=== PATIENT | female | born 1980 | race American Indian/Alaskan Native ===

== ENCOUNTER 2020-02-27 21:42 | Inpatient (IN) | payer OTHER ==
--- NOTE | 2020-02-27 21:57 | Emergency Department Report ---
History of Present Illness - General Stated Complaint: MH/SUICIDAL Time Seen by Provider: 02/27/20 21:52 Source: patient, EMS Mode of arrival: Stretcher Limitations: No Limitations - History of Present Illness Initial Comments: Patient is a 39-year-old female that presents emergency room with complaints of depression and suicide attempt. Patient states she took a handful of Unisom in order to go to sleep and not wake up. Patient states she does not want to be on earth anymore. Patient states she is depressed. Patient denies anxiety. Patient denies homicidal ideations. Patient states she does not want to talk anymore. Complaint: intentional overdose -: Sudden Intent: suicide attempt How Overdose Was Discovered: called 911 Context: Intentional Overdose: other Associated Symptoms: depression Treatments Prior to Arrival: none - Related Data Allergies Allergy/AdvReac Type Severity Reaction Status Date / Time Penicillins Allergy Anaphylaxis Verified 02/27/20 22:10 ED Review of Systems ROS: Stated complaint: MH/SUICIDAL Other details as noted in HPI Constitutional: denies: chills, fever Eyes: denies: eye pain, eye discharge, vision change ENT: denies: ear pain, throat pain Respiratory: denies: cough, shortness of breath, wheezing Cardiovascular: denies: chest pain, palpitations Endocrine: no symptoms reported Gastrointestinal: denies: abdominal pain, nausea, diarrhea Genitourinary: denies: urgency, dysuria, discharge Musculoskeletal: denies: back pain, joint swelling, arthralgia Skin: denies: rash, lesions Neurological: denies: headache, weakness, paresthesias Psychiatric: depression, suicidal thoughts. denies: anxiety, auditory hallucinations, visual hallucinations, homicidal thoughts Hematological/Lymphatic: denies: easy bleeding, easy bruising ED Past Medical Hx - Past Medical History Previous Medical History?: Yes Hx Psychiatric Treatment: Yes - Surgical History Past Surgical History?: No - Family History Family history: no significant - Social History Smoking Status: Never Smoker Substance Use Type: None ED Physical Exam - General Limitations: No Limitations General appearance: alert, in no apparent distress - Head Head exam: Present: atraumatic, normocephalic - Eye Eye exam: Present: normal appearance - ENT ENT exam: Present: mucous membranes moist - Neck Neck exam: Present: normal inspection - Respiratory Respiratory exam: Present: normal lung sounds bilaterally. Absent: respiratory distress - Cardiovascular Cardiovascular Exam: Present: regular rate, normal rhythm. Absent: systolic murmur, diastolic murmur, rubs, gallop - GI/Abdominal GI/Abdominal exam: Present: soft, normal bowel sounds - Extremities Exam Extremities exam: Present: normal inspection - Back Exam Back exam: Present: normal inspection - Neurological Exam Neurological exam: Present: alert, oriented X3 - Psychiatric Psychiatric exam: Present: depressed, flat affect, suicidal ideation - Skin Skin exam: Present: warm, dry, intact, normal color. Absent: rash ED Course Vital Signs 02/27/20 02/27/20 22:10 23:34 Pulse Rate 121 H 119 H Respiratory 30 H Rate Blood Pressure 235/105 Blood Pressure 214/121 [Left] O2 Sat by Pulse 98 Oximetry - Reevaluation(s) Reevaluation #1: Initial evaluation done. Patient placed on a 1013 for her suicide attempt. Patient not clear exactly on how many Unisom she took. Poison control will be contacted by the nurse. 02/27/20 21:59 Reevaluation #2: OCTAVIO CELESTIN Female : 1980 MedRec# [id number] 02/27/20 22:22 - Nurse Note by OLGA NETTLES Acct Num: [id number] : 1980 Patient Age: 39 Spoke with Anne at poison control. She stated pt should be observed for 6-8 hrs, Basic labs including salicilite and acetaminophen levels. library monitor for ventricular irregularities including Torsades. If QRS >100 call poison control back. If pt becomes agitated give benzos NOT haldol or geodon. informed of recommendations from poison control Initialized on 02/27/20 22:22 - END OF NOTE Reevaluation #3: Patient blood pressure better. Patient heart rate better with fluids. Patient will continue to give fluids. Patient's labs done. I discussed all results with patient. I discussed plan of care with patient. Patient agrees with plan of care and admission. Patient to be admitted to the hospitalist service. 02/27/20 23:31 - Consultations Consultation #1: Hospitalist consulted for admission. Hospitalist to admit patient. Bridge orders placed. 02/27/20 23:31 ED Medical Decision Making - Lab Data Result diagrams: 02/27/20 21:55 02/27/20 21:55 - EKG Data -: EKG Interpreted by Me EKG shows normal: sinus rhythm, axis, intervals, QRS complexes, ST-T waves Rate: tachycardia - Medical Decision Making Patient is a 39-year-old female that presents emergency room for overdose with Unisom. Patient took an unknown amount. Poison control consulted. Recommen dations received. Patient will be admitted to the hospitalist service for further evaluation treatment. Patient labs were done showing renal insufficiency. Patient was found to have malignant hypertension and tachycardia. Patient given hydralazine which helped her blood pressure. Patient given fluids. - Differential Diagnosis Overdose, suicidal ideation and attempt, depression, electrolyte imbalance Critical Care Time: Yes Critical care time in (mins) excluding proc time.: 35 Critical care attestation.: If time is entered above; I have spent that time in minutes in the direct care of this critically ill patient, excluding procedure time. Critical Care Time: 35 minutes ED Disposition Clinical Impression: Renal insufficiency, Tachycardia, Malignant hypertension Overdose Qualifiers: Encounter type: initial encounter Injury intent: intentional self-harm Qualified Code(s): T50.902A - Poisoning by unspecified drugs, medicaments and biological substances, intentional self-harm, initial encounter Depressed Qualifiers: Depression Type: unspecified Qualified Code(s): F32.9 - Major depressive disorder, single episode, unspecified Anemia Qualifiers: Anemia type: unspecified type Qualified Code(s): D64.9 - Anemia, unspecified Disposition: DC-09 OP ADMIT IP TO THIS HOSP Is pt being admited?: Yes Does the pt Need Aspirin: No Condition: Critical [facility] - 3-5 Days Time of Disposition: 23:30
[2020-02-27] MEDS ORDERED: SODIUM CHLORIDE 0.9% 1000 ML 1,000 ML IV ONE (22:00)
[2020-02-27] MEDS ORDERED: hydrALAZINE 20 MG/1 ML INJ IV ONE (22:01)
[2020-02-27 22:15] LABS: Basophils # (Auto) 0.1 K/mm3 (0.0-0.1); Basophils % (Auto) 1.4 % (0.0-1.8); Eosinophils # (Auto) 0.1 K/mm3 (0.0-0.4); Eosinophils % (Auto) 1.4 % (0.0-4.3); Lymphocytes # (Auto) 1.8 K/mm3 (1.2-5.4); Lymphocytes % (Auto) 21.8 % (13.4-35.0); Mean Corpuscular HGB Conc 30 % (30-34); Monocytes # (Auto) 0.5 K/mm3 (0.0-0.8); Monocytes % (Auto) 6.2 % (0.0-7.3); Platelet Count 465 K/mm3 (140-440); Red Blood Count 4.64 M/mm3 (3.65-5.03); Red Cell Distribution Width 18.5 % (13.2-15.2)
[2020-02-27 22:16] LABS: Hematocrit 30.1 % (30.3-42.9); Mean Corpuscular Volume 65 fl (79-97)
[2020-02-27 22:31] LABS: Calcium 8.9 mg/dL (8.4-10.2)
[2020-02-28] MEDS ORDERED: ONDANSETRON 4 MG/2 ML INJ IV PRN (01:03)
[2020-02-28] MEDS ORDERED: HYDROmorphone 1 MG/1 ML INJ IV PRN (01:03)
[2020-02-28] MEDS ORDERED: METOCLOPRAMIDE 10 MG/2 ML INJ IV PRN (01:03)
--- NOTE | 2020-02-28 01:03 | History and Physical Report ---
History of Present Illness Date of examination: 02/27/20 Date of admission: 02/27/20 23:34 Chief complaint: Unisom overdose History of present illness: Female with history of hypertension and psychiatric problems including depression and suicidal attempt in the past comes in for taking unknown quantity of Unisom tablets. She does not know how many tablets she is taking. Unisom tablets 25 mg to 50mg of Benadryl. Patient states she took a handful of Unasyn in order to go to sleep and not wake up. She does not want to be on the earth anymore. Patient states she is depressed. Patient denies anxiety. Patient denies homicidal ideation. Patient states that she does not want to talk to anyone. Patient has intentional overdose and called 911. Past Medical History Previous Medical History?: Yes Hx Psychiatric Treatment: Yes Suicidal attempt Hypertension Surgical History Past Surgical History?: No - Family History Family history: no significant - Social History Smoking Status: Never Smoker Substance Use Type: None Review of Systems ROS: Stated complaint: MH/SUICIDAL Other details as noted in HPI Constitutional: denies: chills, fever Eyes: denies: eye pain, eye discharge, vision change ENT: denies: ear pain, throat pain Respiratory: denies: cough, shortness of breath, wheezing Cardiovascular: denies: chest pain, palpitations Endocrine: no symptoms reported Gastrointestinal: denies: abdominal pain, nausea, diarrhea Genitourinary: denies: urgency, dysuria, discharge Musculoskeletal: denies: back pain, joint swelling, arthralgia Skin: denies: rash, lesions Neurological: denies: headache, weakness, paresthesias Psychiatric: depression, suicidal thoughts. denies: anxiety, auditory hallucinations, visual hallucinations, homicidal thoughts Hematological/Lymphatic: denies: easy bleeding, easy bruising PUI?: No Medications and Allergies Allergies Allergy/AdvReac Type Severity Reaction Status Date / Time aspirin Allergy Unknown Verified 02/28/20 02:05 NSAIDS (Non-Steroidal Allergy Unknown Verified 02/28/20 02:05 Anti-Inflamma Penicillins Allergy Anaphylaxis Verified 02/27/20 22:10 Home Medications Medication Instructions Recorded Confirmed Last Taken Type hydroCHLOROthiazide [HCTZ] 25 mg PO DAILY 02/28/20 02/28/20 Unknown History Exam - Constitutional Vitals: Temp Pulse Resp BP Pulse Ox 119 H 30 H 235/105 98 02/27/20 23:34 02/27/20 22:10 02/27/20 23:34 02/27/20 22:10 General appearance: Present: no acute distress, well-nourished - EENT Eyes: Present: PERRL ENT: hearing intact, clear oral mucosa - Neck Neck: Present: supple, normal ROM - Respiratory Respiratory effort: normal Respiratory: bilateral: CTA - Cardiovascular Heart Sounds: Present: S1 & S2. Absent: rub, click - Extremities Extremities: pulses symmetrical, No edema Peripheral Pulses: within normal limits - Abdominal General gastrointestinal: Present: soft, non-tender, non-distended, normal bowel sounds Female genitourinary: Present: normal - Integumentary Integumentary: Present: clear, warm, dry - Musculoskeletal Musculoskeletal: gait normal, strength equal bilaterally - Psychiatric Psychiatric: appropriate mood/affect, intact judgment & insight - Neurologic Neurologic: CNII-XII intact, moves all extremities Results - Labs CBC & Chem 7: 02/28/20 02:03 02/28/20 02:03 Labs: Laboratory Last Values WBC 8.2 K/mm3 (4.5-11.0) 02/27/20 21:55 RBC 4.64 M/mm3 (3.65-5.03) 02/27/20 21:55 Hgb 9.0 gm/dl (10.1-14.3) L 02/27/20 21:55 Hct 30.1 % (30.3-42.9) L 02/27/20 21:55 MCV 65 fl (79-97) L 02/27/20 21:55 MCH 19 pg (28-32) L 02/27/20 21:55 MCHC 30 % (30-34) 02/27/20 21:55 RDW 18.5 % (13.2-15.2) H 02/27/20 21:55 Plt Count 465 K/mm3 (140-440) H 02/27/20 21:55 Lymph % (Auto) 21.8 % (13.4-35.0) 02/27/20 21:55 Edmonson % (Auto) 6.2 % (0.0-7.3) 02/27/20 21:55 Eos % (Auto) 1.4 % (0.0-4.3) 02/27/20 21:55 Baso % (Auto) 1.4 % (0.0-1.8) 02/27/20 21:55 Lymph # 1.8 K/mm3 (1.2-5.4) 02/27/20 21:55 Edmonson # 0.5 K/mm3 (0.0-0.8) 02/27/20 21:55 Eos # 0.1 K/mm3 (0.0-0.4) 02/27/20 21:55 Baso # 0.1 K/mm3 (0.0-0.1) 02/27/20 21:55 Seg Neutrophils % 69.2 % (40.0-70.0) 02/27/20 21:55 Seg Neutrophils # 5.7 K/mm3 (1.8-7.7) 02/27/20 21:55 Sodium 136 mmol/L (137-145) L 02/27/20 21:55 Potassium 3.4 mmol/L (3.6-5.0) L 02/27/20 21:55 Chloride 102.2 mmol/L (98-107) 02/27/20 21:55 Carbon Dioxide 21 mmol/L (22-30) L 02/27/20 21:55 Anion Gap 16 mmol/L 02/27/20 21:55 BUN 21 mg/dL (7-17) H 02/27/20 21:55 Creatinine 1.3 mg/dL (0.7-1.2) H 02/27/20 21:55 Estimated GFR 55 ml/min 02/27/20 21:55 BUN/Creatinine Ratio 16 % 02/27/20 21:55 Glucose 112 mg/dL (65-100) H 02/27/20 21:55 Calcium 8.9 mg/dL (8.4-10.2) 02/27/20 21:55 Total Bilirubin 0.20 mg/dL (0.1-1.2) 02/27/20 21:55 AST 10 units/L (5-40) 02/27/20 21:55 ALT 11 units/L (7-56) 02/27/20 21:55 Alkaline Phosphatase 85 units/L (35-129) 02/27/20 21:55 Total Protein 7.7 g/dL (6.3-8.2) 02/27/20 21:55 Albumin 4.0 g/dL (3.9-5) 02/27/20 21:55 Albumin/Globulin Ratio 1.1 % 02/27/20 21:55 HCG, Qual Negative (Negative) 02/27/20 21:55 Salicylates < 0.3 mg/dL (2.8-20.0) L 02/27/20 21:55 Acetaminophen < 5.0 ug/mL (10.0-30.0) L 02/27/20 21:55 Plasma/Serum Alcohol < 0.01 % (0-0.07) 02/27/20 21:55 Short CBC 02/27/20 Range/Units 21:55 WBC 8.2 (4.5-11.0) K/mm3 Hgb 9.0 L (10.1-14.3) gm/dl Hct 30.1 L (30.3-42.9) % Plt Count 465 H (140-440) K/mm3 BMP 02/27/20 21:55 Sodium 136 L Potassium 3.4 L Chloride 102.2 Carbon Dioxide 21 L BUN 21 H Creatinine 1.3 H Glucose 112 H Calcium 8.9 Liver Function 02/27/20 Range/Units 21:55 Total Bilirubin 0.20 (0.1-1.2) mg/dL AST 10 (5-40) units/L ALT 11 (7-56) units/L Alkaline Phosphatase 85 (35-129) units/L Albumin 4.0 (3.9-5) g/dL - Imaging and Cardiology EKG: report reviewed Pino/IV: IV Catheter Type [Left INT / Saline Lock Antecubital] Assessment and Plan Advance Directives: Yes (Full code) VTE prophylaxis?: Chemical Plan of care discussed with patient/family: Yes - Patient Problems (1) Overdose Current Visit: Yes Status: Acute Qualifiers: Encounter type: initial encounter Injury intent: intentional self-harm Qualified Code(s): T50.902A - Poisoning by unspecified drugs, medicaments and biological substances, intentional self-harm, initial encounter Plan to address problem: Overdose with unknown tablets of Unisom which contains diphenhydramine IV fluids for now Close observation Mental health consult May need mental health placement Watch for QTC prolongation Repeat EKG in a.m. (2) RAUL (acute kidney injury) Current Visit: Yes Status: Acute Plan to address problem: Secondary to vasomotor nephropathy IV fluids for now (3) Hypertension Current Visit: Yes Status: Chronic Qualifiers: Hypertension type: essential hypertension Qualified Code(s): I10 - Essential (primary) hypertension Plan to address problem: Hydrochlorothiazide discontinued Valsartan 160 mg p.o. daily added (4) Suicidal ideation Current Visit: Yes Status: Acute Plan to address problem: Mental health consult (5) Anemia Current Visit: Yes Status: Chronic Qualifiers: Anemia type: iron deficiency Plan to address problem: Probably iron deficiency anemia Check iron levels and folic acid and B12 Started on ferrous gluconate after the blood is drawn (6) Hypokalemia Current Visit: Yes Status: Acute Plan to address problem: Mild secondary to hydrochlorothiazide Supplemented Hydrochlorothiazide stopped (7) DVT prophylaxis Current Visit: Yes Status: Acute Plan to address problem: On Lovenox 40 mg subcu daily and GI prophylaxis
[2020-02-28] MEDS ORDERED: D5W/0.9% NACL 1,000 ML IV SCH (02:00)
[2020-02-28 02:19] LABS: Basophils # (Auto) 0.1 K/mm3 (0.0-0.1); Basophils % (Auto) 1.2 % (0.0-1.8); Eosinophils # (Auto) 0.1 K/mm3 (0.0-0.4); Lymphocytes # (Auto) 1.4 K/mm3 (1.2-5.4); Lymphocytes % (Auto) 17.3 % (13.4-35.0); Mean Corpuscular HGB Conc 30 % (30-34); Monocytes # (Auto) 0.4 K/mm3 (0.0-0.8); Monocytes % (Auto) 4.5 % (0.0-7.3); Platelet Count 495 K/mm3 (140-440); Red Blood Count 4.82 M/mm3 (3.65-5.03); Red Cell Distribution Width 18.2 % (13.2-15.2)
[2020-02-28 02:42] LABS: Albumin 3.9 g/dL (3.9-5); Calcium 8.7 mg/dL (8.4-10.2)
[2020-02-28 02:50] LABS: Hematocrit 31.3 % (30.3-42.9); Hemoglobin 9.3 gm/dl (10.1-14.3); Mean Corpuscular Volume 65 fl (79-97)
[2020-02-28] MEDS: FAMOTIDINE 20 MG/2 ML INJ IV SCH ×3 (02:56→22:02)
[2020-02-28] MEDS: hydrALAZINE 20 MG/1 ML INJ IV PRN ×2 (04:26→12:52)
[2020-02-28] MEDS ORDERED: POTASSIUM CHLORIDE ER 20 MEQ TAB PO ONE (05:50)
[2020-02-28 06:24] LABS: % Iron Saturation 2.42 %
[2020-02-28] MEDS: VALSARTAN 160MG TAB PO SCH (09:35)
--- NOTE | 2020-02-28 12:51 | Consultation ---
History of Present Illness - Reason for Consult Consult date: 02/28/20 Reason for consult: Psych eval Requesting physician: RUSTAM SYED - Chief Complaint Chief complaint: "I took some sleeping pills" - History of Present Psychiatric Illness The patient is a 39yo single unemployed female with no past psych history admitted after she attempted suicide by overdose. She reportedly took a handful of Unisom tablets. Psychiatry consulted to evaluate patient and recommend disposition. In my interview with the patient this morning, she admits taking the overdose with the intention of ending her life because "I got tired of people threatening me, stalking me and harassing me". She reports that phone and email are hacked. She reports living in fear, anxious all the time, not able to sleep because she is fearful and experiences panic attacks in the middle of her sleep. She continues to endorse feeling suicidal but denies homicidal thoughts and no hallucinations. No illicit drug use. Collateral information obtained by the Mental health medication reconciliation technician: Pt's sister (Megan Harp [phone]) called to provide background information about the pt. This medication reconciliation technician provided no information to this family member, but documented everything that the family member stated that she wanted to providers to know. Pt has been making suicidal statements to her mother and sister the past couple of days. The pt has been experiencing severe paranoia for the past couple of years(the pt believes the [facility] is after her as well as her previous employers [employer] and [employer]). The pt, "doesn't think anything is wrong," per the sister. 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 The pt has no formal diagnosis or treatment. The pt lives alone (not , no children). 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 to greg due to, "being a human experiment, the court has tapped her 5 phones, it just goes on and on." No crane operator cab will take her case per the sister, "because the accusations are so off the wall." Sister reports that the pt has no history of suicide attempts in the past; no attempts to harm others, "but things are getting to be too much, "she is going to the police stations in [place] to take a warrant out on everyone in the [facility]." PAST PSYCHIATRIC HISTORY: Diagnoses: None Suicide attempts or Self-harm behavior: no Prior psychiatric hospitalizations: no Substance Abuse history: none Previous psychiatric medications tried: none Outpatient treatment: no PAST MEDICAL HISTORY: HTN Family Psychiatric History None reported or documented SOCIAL HISTORY Marital Status: Single Living Arrangements: Alone Employment Status: Unemployed Access to guns/weapons: Patient denies Education: Master's degree History of Abuse: Patient denies Legal History: no REVIEW OF SYSTEMS Constitutional: Negative for weight loss ENT: Negative for stridor Respiratory: Negative for cough or hemoptysis All other systems reviewed and are negative MENTAL STATUS General Appearance and Behavior: age appropriate, good eye contact, cooperative with questioning and polite Cooperation: Cooperative Psychomotor Behavior: within normal limits Mood: Anxious Affect and affective range: Congruent with stated mood Thought Process: Fluent/Logical and Goal-directed Thought Content: Paranoid delusions Speech: Normal volume and Regular rate and rhythm Intellectual Functioning Average Suicidal Ideation: Yes Homicidal Ideation: Denies HI Impulse Control: intact Insight and Judgment: normal insight and judgment Memory: Normal Attention: Normal Orientation: alert and oriented Diagnosis: Paranoid Schizophrenia RECOMMENDATIONS MEDICATIONS: Risperidone 1mg bid for psychosis Risks, benefits and alternatives of medications discussed with the patient, questions answered and consent obtained from patient. 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 Medications and Allergies Allergies Allergy/AdvReac Type Severity Reaction Status Date / Time aspirin Allergy Unknown Verified 02/28/20 02:05 NSAIDS (Non-Steroidal Allergy Unknown Verified 02/28/20 02:05 Anti-Inflamma Penicillins Allergy Anaphylaxis Verified 02/27/20 22:10 Home Medications Medication Instructions Recorded Confirmed Last Taken Type hydroCHLOROthiazide [HCTZ] 25 mg PO DAILY 02/28/20 02/28/20 Unknown History Active Meds: Active Medications Acetaminophen (Tylenol) 650 mg PO Q4H PRN PRN Reason: Pain MILD(1-3)/Fever >100.5/ZAMAN Enoxaparin Sodium (Enoxaparin) 40 mg SUB-Q QDAY@2200 [facility] Famotidine (Pepcid) 20 mg IV BID [facility] Last Admin: 02/28/20 09:35 Dose: 20 mg Documented by: Hydralazine HCl (Apresoline) 10 mg IV Q4H PRN PRN Reason: Blood Pressure Last Admin: 02/28/20 04:26 Dose: 10 mg Documented by: Hydromorphone HCl (Dilaudid) 0.5 mg IV Q3H PRN PRN Reason: Pain , Severe (7-10) Dextrose/Sodium Chloride (D5ns) 1,000 mls @ 100 mls/hr IV DIRECT [facility] Last Admin: 02/28/20 03:04 Dose: 100 mls/hr Documented by: Metoclopramide HCl (Reglan) 10 mg IV Q6H PRN PRN Reason: Nausea And Vomiting Ondansetron HCl (Zofran) 4 mg IV Q8H PRN PRN Reason: Nausea And Vomiting Sodium Chloride (Sodium Chloride Flush Syringe 10 Ml) 10 ml IV BID [facility] Last Admin: 02/28/20 09:37 Dose: 10 ml Documented by: Sodium Chloride (Sodium Chloride Flush Syringe 10 Ml) 10 ml IV PRN PRN PRN Reason: LINE FLUSH Valsartan (Diovan) 160 mg PO DAILY [facility] Last Admin: 02/28/20 09:35 Dose: 160 mg Documented by: Mental Status Exam - Vital signs Last Vital Signs Temp 99.4 F 02/28/20 09:14 Pulse 124 H 02/28/20 09:35 Resp 18 02/28/20 09:14 BP 164/84 02/28/20 09:35 Pulse Ox 99 02/28/20 09:14 Results Result Diagrams: 02/28/20 02:03 02/28/20 02:03 Abnormal lab results 02/27/20 02/27/20 02/27/20 Range/Units 21:55 21:55 21:55 Hgb 9.0 L (10.1-14.3) gm/dl Hct 30.1 L (30.3-42.9) % MCV 65 L (79-97) fl MCH 19 L (28-32) pg RDW 18.5 H (13.2-15.2) % Plt Count 465 H (140-440) K/mm3 Seg Neutrophils % (40.0-70.0) % Sodium 136 L (137-145) mmol/L Potassium 3.4 L (3.6-5.0) mmol/L Carbon Dioxide 21 L (22-30) mmol/L BUN 21 H (7-17) mg/dL Creatinine 1.3 H (0.7-1.2) mg/dL Glucose 112 H (65-100) mg/dL Iron (37-170) ug/dL Salicylates < 0.3 L (2.8-20.0) mg/dL Acetaminophen (10.0-30.0) ug/mL 02/27/20 02/28/20 02/28/20 Range/Units 21:55 02:03 02:03 Hgb 9.3 L (10.1-14.3) gm/dl Hct (30.3-42.9) % MCV 65 L (79-97) fl MCH 19 L (28-32) pg RDW 18.2 H (13.2-15.2) % Plt Count 495 H (140-440) K/mm3 Seg Neutrophils % 76.0 H (40.0-70.0) % Sodium (137-145) mmol/L Potassium 3.3 L (3.6-5.0) mmol/L Carbon Dioxide 21 L (22-30) mmol/L BUN 19 H (7-17) mg/dL Creatinine 1.3 H (0.7-1.2) mg/dL Glucose 123 H (65-100) mg/dL Iron (37-170) ug/dL Salicylates (2.8-20.0) mg/dL Acetaminophen < 5.0 L (10.0-30.0) ug/mL 02/28/20 Range/Units 05:45 Hgb (10.1-14.3) gm/dl Hct (30.3-42.9) % MCV (79-97) fl MCH (28-32) pg RDW (13.2-15.2) % Plt Count (140-440) K/mm3 Seg Neutrophils % (40.0-70.0) % Sodium (137-145) mmol/L Potassium (3.6-5.0) mmol/L Carbon Dioxide (22-30) mmol/L BUN (7-17) mg/dL Creatinine (0.7-1.2) mg/dL Glucose (65-100) mg/dL Iron 8 L (37-170) ug/dL Salicylates (2.8-20.0) mg/dL Acetaminophen (10.0-30.0) ug/mL All other labs normal. Assessment and Plan - Psychiatric problem (1) Paranoid schizophrenia Current Visit: Yes Status: Acute
--- NOTE | 2020-02-28 13:50 | Progress Note ---
Assessment and Plan / Drug Overdose Overdose with unknown tablets of Unisom which contains diphenhydramine IV fluids for now, Close observation Mental health consulted, will need inpt mental health placement Watch for QTC prolongation, Repeat EKG in a.m. / RAUL (acute kidney injury) Secondary to vasomotor nephropathy IV fluids for now / Hypertension Hydrochlorothiazide discontinued Valsartan 160 mg p.o. daily added - if renal function not improved then will change to amlodipine and hydralazine / Suicidal ideation Mental health consulted, sitter in place / Anemia Probably iron deficiency anemia Check iron levels and folic acid and B12 Started on ferrous gluconate after the blood is drawn / Hypokalemia Mild secondary to hydrochlorothiazide Supplemented, Hydrochlorothiazide stopped / DVT prophylaxis On Lovenox 40 mg subcu daily and GI prophylaxis Subjective Date of service: 02/28/20 PUI?: No Objective - Constitutional Vitals: Vital Signs - 12hr 02/28/20 02/28/20 02/28/20 02:21 02:26 04:26 Temperature 98.6 F Pulse Rate 111 H 111 H 111 H Pulse Rate [ 111 H Apical] Respiratory 16 20 Rate Blood Pressure 191/111 191/111 O2 Sat by Pulse 99 Oximetry 02/28/20 02/28/20 02/28/20 05:21 06:10 09:14 Temperature 98.9 F 99.4 F Pulse Rate 109 H 124 H Pulse Rate [ Apical] Respiratory 18 18 Rate Blood Pressure 129/65 164/84 O2 Sat by Pulse 99 99 Oximetry 02/28/20 02/28/20 09:35 12:52 Temperature Pulse Rate 124 H 115 H Pulse Rate [ Apical] Respiratory Rate Blood Pressure 164/84 174/100 O2 Sat by Pulse Oximetry General appearance: Present: no acute distress, obese - EENT Eyes: PERRL, EOM intact ENT: hearing intact, clear oral mucosa Ears: bilateral: normal - Neck Neck: supple, normal ROM - Respiratory Respiratory effort: normal Respiratory: bilateral: CTA - Cardiovascular Rhythm: regular Heart Sounds: Present: S1 & S2. Absent: gallop, rub Extremities: pulses intact, No edema, normal color, Full ROM - Gastrointestinal General gastrointestinal: Present: soft, non-tender, non-distended, normal bowel sounds - Integumentary Integumentary: clear, warm, dry - Musculoskeletal Musculoskeletal: 1, strength equal bilaterally - Neurologic Neurologic: moves all extremities - Psychiatric Psychiatric: memory intact, appropriate mood/affect, intact judgment & insight - Labs CBC & Chem 7: 02/29/20 06:45 02/29/20 06:45 Labs: Abnormal lab results 02/27/20 02/27/20 02/27/20 Range/Units 21:55 21:55 21:55 Hgb 9.0 L (10.1-14.3) gm/dl Hct 30.1 L (30.3-42.9) % MCV 65 L (79-97) fl MCH 19 L (28-32) pg RDW 18.5 H (13.2-15.2) % Plt Count 465 H (140-440) K/mm3 Seg Neutrophils % (40.0-70.0) % Sodium 136 L (137-145) mmol/L Potassium 3.4 L (3.6-5.0) mmol/L Carbon Dioxide 21 L (22-30) mmol/L BUN 21 H (7-17) mg/dL Creatinine 1.3 H (0.7-1.2) mg/dL Glucose 112 H (65-100) mg/dL Iron (37-170) ug/dL Salicylates < 0.3 L (2.8-20.0) mg/dL Acetaminophen (10.0-30.0) ug/mL 02/27/20 02/28/20 02/28/20 Range/Units 21:55 02:03 02:03 Hgb 9.3 L (10.1-14.3) gm/dl Hct (30.3-42.9) % MCV 65 L (79-97) fl MCH 19 L (28-32) pg RDW 18.2 H (13.2-15.2) % Plt Count 495 H (140-440) K/mm3 Seg Neutrophils % 76.0 H (40.0-70.0) % Sodium (137-145) mmol/L Potassium 3.3 L (3.6-5.0) mmol/L Carbon Dioxide 21 L (22-30) mmol/L BUN 19 H (7-17) mg/dL Creatinine 1.3 H (0.7-1.2) mg/dL Glucose 123 H (65-100) mg/dL Iron (37-170) ug/dL Salicylates (2.8-20.0) mg/dL Acetaminophen < 5.0 L (10.0-30.0) ug/mL 02/28/20 Range/Units 05:45 Hgb (10.1-14.3) gm/dl Hct (30.3-42.9) % MCV (79-97) fl MCH (28-32) pg RDW (13.2-15.2) % Plt Count (140-440) K/mm3 Seg Neutrophils % (40.0-70.0) % Sodium (137-145) mmol/L Potassium (3.6-5.0) mmol/L Carbon Dioxide (22-30) mmol/L BUN (7-17) mg/dL Creatinine (0.7-1.2) mg/dL Glucose (65-100) mg/dL Iron 8 L (37-170) ug/dL Salicylates (2.8-20.0) mg/dL Acetaminophen (10.0-30.0) ug/mL
--- NOTE | 2020-02-28 19:23 | Event Note ---
Date: 02/28/20 Magnesium level and EKG ordered for 50 beat run of ventricular tachycardia as per anesthesia technician. Patient asymptomatic. If QRS greater than or equal to 100 notify poison control.
[2020-02-28] MEDS: risperiDONE 1 MG TAB PO SCH ×2 (22:02→23:14)
[2020-02-28] MEDS: ENOXAPARIN 40 MG/0.4 ML INJ SUB-Q SCH ×2 (22:02→22:15)
[2020-02-28] MEDS: POTASSIUM CHLORIDE ER 20 MEQ TAB PO ONE ×2 (22:03→23:11)
[2020-02-29 07:02] LABS: Eosinophils # (Auto) 0.3 K/mm3 (0.0-0.4); Eosinophils % (Auto) 6.4 % (0.0-4.3); Hematocrit 26.8 % (30.3-42.9); Lymphocytes % (Auto) 20.7 % (13.4-35.0); Mean Corpuscular HGB Conc 30 % (30-34); Monocytes # (Auto) 0.4 K/mm3 (0.0-0.8); Monocytes % (Auto) 7.7 % (0.0-7.3); Platelet Count 437 K/mm3 (140-440); Red Cell Distribution Width 18.6 % (13.2-15.2)
[2020-02-29 07:05] LABS: Mean Corpuscular Volume 65 fl (79-97)
[2020-02-29 07:21] LABS: Calcium 8.3 mg/dL (8.4-10.2)
[2020-02-29] MEDS: risperiDONE 1 MG TAB PO SCH ×3 (07:51→22:00)
[2020-02-29] MEDS: FAMOTIDINE 20 MG/2 ML INJ IV SCH (09:12)
[2020-02-29] MEDS: VALSARTAN 160MG TAB PO SCH (09:12)
[2020-02-29] MEDS: hydrALAZINE 20 MG/1 ML INJ IV PRN (11:28)
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
[2020-02-29] MEDS ORDERED: SODIUM CHLORIDE 0.9% 1000 ML 1,000 ML IV SCH (11:45)
[2020-02-29] MEDS: hydrALAZINE 25 MG TAB PO SCH ×2 (15:29→23:56)
--- NOTE | 2020-02-29 17:19 | Progress Note ---
Subjective - Reason for Consult Consult date: 02/29/20 Reason for consult: Psych follow up - Chief Complaint Chief complaint: "I took some sleeping pills" SUBJECTIVE Patient has absolutely not insight. She is argumentative and paranoid. She is upset with the police who refused to investigate her claims, angry with the health it specialist who have refused to take her case, angry with her family members who are ganging up against her. She is refusing medications REVIEW OF SYSTEMS Constitutional: Negative for weight loss ENT: Negative for stridor Respiratory: Negative for cough or hemoptysis All other systems reviewed and are negative MENTAL STATUS General Appearance and Behavior: age appropriate, good eye contact, cooperative with questioning and polite Cooperation: Cooperative Psychomotor Behavior: within normal limits Mood: Anxious Affect and affective range: Congruent with stated mood Thought Process: Fluent/Logical and Goal-directed Thought Content: Paranoid delusions Speech: Normal volume and Regular rate and rhythm Intellectual Functioning Average Suicidal Ideation: Yes Homicidal Ideation: Denies HI Impulse Control: intact Insight and Judgment: normal insight and judgment Memory: Normal Attention: Normal Orientation: alert and oriented Diagnosis: Paranoid Schizophrenia RECOMMENDATIONS MEDICATIONS: Risperidone 1mg bid for psychosis Risks, benefits and alternatives of medications discussed with the patient, questions answered and consent obtained from patient. 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 Mental Status Exam - Vital signs Last Vital Signs Temp 98.3 F 02/29/20 12:31 Pulse 102 H 02/29/20 11:22 Resp 19 02/29/20 11:22 BP 180/108 02/29/20 12:34 Pulse Ox 98 02/29/20 11:22 Assessment and Plan - Patient Problems (1) Paranoid schizophrenia Current Visit: Yes Status: Acute
[2020-02-29] MEDS: ENOXAPARIN 40 MG/0.4 ML INJ SUB-Q SCH (22:05)
[2020-03-01] MEDS: FAMOTIDINE 20 MG/2 ML INJ IV SCH ×3 (00:02→22:01)
[2020-03-01] MEDS: ACETAMINOPHEN 325 MG TAB PO PRN ×2 (06:12→14:41)
[2020-03-01] MEDS: hydrALAZINE 25 MG TAB PO SCH (06:13)
[2020-03-01] MEDS: risperiDONE 1 MG TAB PO SCH ×3 (09:47→22:00)
[2020-03-01] MEDS: amLODIPine 10 MG TAB PO SCH (09:47)
--- NOTE | 2020-03-01 13:41 | Progress Note ---
Assessment and Plan / Drug Overdose with suicidal attempt Overdose with unknown tablets of Unisom which contains diphenhydramine IV fluids for now, Close observation Mental health consulted, will need inpt mental health placement EKG showed normal QTC /Paranoid schizophrenia -Ruled out depression and anxiety -Psychiatry consulted, will follow recommendation - Risperidone 1mg bid for psychosis / RAUL (acute kidney injury) Secondary to vasomotor nephropathy IV fluids for now / Hypertension, uncontrolled Hydrochlorothiazide, Valsartan discontinued We will continue on amlodipine and metoprolol We will also discontinue hydralazine because patient is being tachycardic / Suicidal ideation Mental health consulted, sitter in place / Anemia Probably iron deficiency anemia Check iron levels and folic acid and B12 Started on ferrous gluconate after the blood is drawn / Hypokalemia Mild secondary to hydrochlorothiazide Supplemented, Hydrochlorothiazide stopped /Mild tension headache -Could be also secondary to uncontrolled blood pressure -Tylenol as needed / DVT prophylaxis On Lovenox 40 mg subcu daily and GI prophylaxis 02/28 Continue to monitor renal function, will also change antihypertensive to amlodipine and hydralazine. 03/01: Renal function improved, will stop hydralazine and continue amlodipine with metoprolol for blood pressure control. Subjective Date of service: 03/01/20 Interval history: Patient seen and examined. Medical records and medication list reviewed. No acute event overnight noted by the RN. Patient denies any chest pain or difficulty breathing. Patient is tolerating diet. Complains of headache today Discussed plan of care at bedside with patient. . Objective - Exam Narrative Exam: General appearance: Present: no acute distress, morbidly obese - EENT Eyes: Present: PERRL ENT: hearing intact, clear oral mucosa - Neck Neck: Present: supple, normal ROM - Respiratory Respiratory effort: normal Respiratory: bilateral: CTA - Cardiovascular Heart Sounds: Present: S1 & S2. Absent: rub, click - Extremities Extremities: pulses symmetrical, No edema Peripheral Pulses: within normal limits - Abdominal General gastrointestinal: Present: soft, non-tender, non-distended, normal bowel sounds Female genitourinary: Present: normal - Integumentary Integumentary: Present: clear, warm, dry - Musculoskeletal Musculoskeletal: gait normal, strength equal bilaterally - Psychiatric Psychiatric: Patient appears very paranoid, depressed and anxious. Getting tearful often during the encounter - Neurologic Neurologic: CNII-XII intact, moves all extremities - Constitutional Vitals: Vital Signs - 12hr 03/01/20 03/01/20 03/01/20 04:15 06:12 06:13 Temperature 99.3 F Pulse Rate 103 H 103 H Pulse Rate [ Apical] Pulse Rate [ Left Radial] Pulse Rate [ Right Radial] Respiratory 19 20 Rate Blood Pressure 166/95 Blood Pressure 166/98 [Left] O2 Sat by Pulse 99 Oximetry 03/01/20 03/01/20 03/01/20 08:00 09:03 09:47 Temperature 98.6 F 98.6 F Pulse Rate 120 H 122 H 103 H Pulse Rate [ Apical] Pulse Rate [ Left Radial] Pulse Rate [ Right Radial] Respiratory 16 76 H Rate Blood Pressure 170/98 170/98 Blood Pressure 170/98 [Left] O2 Sat by Pulse 98 98 Oximetry 03/01/20 03/01/20 10:00 12:57 Temperature 98.5 F Pulse Rate 120 H Pulse Rate [ 103 H Apical] Pulse Rate [ 103 H Left Radial] Pulse Rate [ 103 H Right Radial] Respiratory 19 16 Rate Blood Pressure Blood Pressure 158/78 [Left] O2 Sat by Pulse 99 96 Oximetry - Labs CBC & Chem 7: 02/29/20 06:45 03/01/20 03:25 Labs: Abnormal lab results 03/01/20 Range/Units 03:25 Carbon Dioxide 19 L (22-30) mmol/L Glucose 107 H (65-100) mg/dL
[2020-03-01] MEDS: METOPROLOL TARTRATE 50 MG TAB PO SCH ×2 (14:36→21:58)
[2020-03-01] MEDS: ENOXAPARIN 40 MG/0.4 ML INJ SUB-Q SCH (22:00)
--- NOTE | 2020-03-02 09:24 | Progress Note ---
Assessment and Plan / Drug Overdose with suicidal attempt Overdose with unknown tablets of Unisom which contains diphenhydramine s/p IV fluids , continue close observation Mental health consulted, EKG showed normal QTC /Paranoid schizophrenia -Ruled out depression and anxiety -Psychiatry consulted, will follow recommendation - Risperidone 1mg bid for psychosis -Need inpatient psych placement / RAUL (acute kidney injury) , resolved with IV fluid Secondary to vasomotor nephropathy / Hypertension, uncontrolled Hydrochlorothiazide, Valsartan discontinued BP today well controlled with amlodipine and metoprolol / Suicidal ideation Mental health consulted, sitter in place / Anemia, due to iron deficiency Started on ferrous gluconate after the blood is drawn / Hypokalemia Mild secondary to hydrochlorothiazide Supplemented, Hydrochlorothiazide stopped /Mild tension headache -Could be also secondary to uncontrolled blood pressure -Tylenol as needed / DVT prophylaxis On Lovenox 40 mg subcu daily and GI prophylaxis 02/28 Continue to monitor renal function, will also change antihypertensive to amlodipine and hydralazine. 03/01: Renal function improved, will stop hydralazine and continue amlodipine with metoprolol for blood pressure control. 03/02: patient is medically stable to transfer to inpatient psych unit when bed available Subjective Date of service: 03/02/20 Interval history: Patient seen and examined. Medical records and medication list reviewed. No acute event overnight noted by the RN. Patient denies any chest pain or difficulty breathing. Patient is tolerating diet. Discussed plan of care at bedside with patient. . Objective - Exam Narrative Exam: General appearance: Present: no acute distress, morbidly obese - EENT Eyes: Present: PERRL ENT: hearing intact, clear oral mucosa - Neck Neck: Present: supple, normal ROM - Respiratory Respiratory effort: normal Respiratory: bilateral: CTA - Cardiovascular Heart Sounds: Present: S1 & S2. Absent: rub, click - Extremities Extremities: pulses symmetrical, No edema Peripheral Pulses: within normal limits - Abdominal General gastrointestinal: Present: soft, non-tender, non-distended, normal bowel sounds Female genitourinary: Present: normal - Integumentary Integumentary: Present: clear, warm, dry - Musculoskeletal Musculoskeletal: gait normal, strength equal bilaterally - Psychiatric Psychiatric: Patient appears very paranoid, depressed and anxious. Getting tearful often during the encounter - Neurologic Neurologic: CNII-XII intact, moves all extremities - Constitutional Vitals: Vital Signs - 12hr 03/01/20 03/01/20 03/02/20 21:58 23:00 01:08 Temperature Pulse Rate 89 83 96 H Respiratory Rate Blood Pressure 151/90 O2 Sat by Pulse Oximetry 03/02/20 03/02/20 01:35 04:36 Temperature 98.7 F 99.6 F Pulse Rate 86 86 Respiratory 18 20 Rate Blood Pressure 125/56 140/77 O2 Sat by Pulse 95 96 Oximetry - Labs CBC & Chem 7: 02/29/20 06:45 03/01/20 03:25
[2020-03-02] MEDS: amLODIPine 10 MG TAB PO SCH (10:14)
[2020-03-02] MEDS: METOPROLOL TARTRATE 50 MG TAB PO SCH ×2 (10:14→22:55)
[2020-03-02] MEDS: risperiDONE 1 MG TAB PO SCH (10:15)
[2020-03-02] MEDS: FAMOTIDINE 20 MG/2 ML INJ IV SCH (10:15)
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
[2020-03-02] MEDS: FAMOTIDINE 20 MG TAB PO SCH (22:55)
[2020-03-02] MEDS: ENOXAPARIN 40 MG/0.4 ML INJ SUB-Q SCH (23:11)
[2020-03-03] MEDS: amLODIPine 10 MG TAB PO SCH (09:33)
[2020-03-03] MEDS: METOPROLOL TARTRATE 50 MG TAB PO SCH (09:33)
[2020-03-03] MEDS: FAMOTIDINE 20 MG TAB PO SCH ×2 (09:33→21:24)
[2020-03-03] MEDS ORDERED: METOPROLOL TARTRATE 50 MG TAB PO SCH (11:24)
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
[2020-03-03] MEDS: METOPROLOL TARTRATE 100 MG TAB PO SCH ×2 (14:08→21:25)
[2020-03-03] MEDS: SERTRALINE 25 MG TAB PO SCH (14:09)
[2020-03-03] MEDS: buPROPion 100 MG TAB PO SCH ×2 (14:09→21:24)
--- NOTE | 2020-03-03 14:23 | Progress Note ---
Assessment and Plan / Drug Overdose with suicidal attempt Overdose with unknown tablets of Unisom which contains diphenhydramine s/p IV fluids , continue close observation Mental health consulted, EKG showed normal QTC /Paranoid schizophrenia -Ruled out depression and anxiety -Psychiatry consulted, will follow recommendation - Risperidone 1mg bid for psychosis -Need inpatient psych placement / RAUL (acute kidney injury) , resolved with IV fluid Secondary to vasomotor nephropathy / Hypertension, uncontrolled Hydrochlorothiazide, Valsartan discontinued BP today well controlled with amlodipine and metoprolol / Suicidal ideation Mental health consulted, sitter in place / Anemia, due to iron deficiency Started on ferrous gluconate after the blood is drawn / Hypokalemia Mild secondary to hydrochlorothiazide Supplemented, Hydrochlorothiazide stopped /Mild tension headache -Could be also secondary to uncontrolled blood pressure -Tylenol as needed / DVT prophylaxis On Lovenox 40 mg subcu daily and GI prophylaxis 02/28: Continue to monitor renal function, will also change antihypertensive to amlodipine and hydralazine. 03/01: Renal function improved, will stop hydralazine and continue amlodipine with metoprolol for blood pressure control. 03/02: Patient is medically stable to transfer to inpatient psych unit when bed available 03/03: Patient is medically stable, waiting for inpatient psych placement Subjective Date of service: 03/03/20 Interval history: Patient seen and examined. Medical records and medication list reviewed. No acute event overnight noted by the RN. Patient denies any chest pain or difficulty breathing. Patient is tolerating diet. Discussed plan of care at bedside with patient. . Objective - Exam Narrative Exam: General appearance: Present: no acute distress, morbidly obese - EENT Eyes: Present: PERRL ENT: hearing intact, clear oral mucosa - Neck Neck: Present: supple, normal ROM - Respiratory Respiratory effort: normal Respiratory: bilateral: CTA - Cardiovascular Heart Sounds: Present: S1 & S2. Absent: rub, click - Extremities Extremities: pulses symmetrical, No edema Peripheral Pulses: within normal limits - Abdominal General gastrointestinal: Present: soft, non-tender, non-distended, normal bowel sounds Female genitourinary: Present: normal - Integumentary Integumentary: Present: clear, warm, dry - Musculoskeletal Musculoskeletal: gait normal, strength equal bilaterally - Psychiatric Psychiatric: Patient appears very paranoid, depressed and anxious. Getting tearful often during the encounter - Neurologic Neurologic: CNII-XII intact, moves all extremities - Labs CBC & Chem 7: 02/29/20 06:45 03/01/20 03:25
[2020-03-03] MEDS: ENOXAPARIN 40 MG/0.4 ML INJ SUB-Q SCH (21:23)
[2020-03-04] MEDS: METOPROLOL TARTRATE 100 MG TAB PO SCH ×2 (10:05→21:56)
[2020-03-04] MEDS: buPROPion 100 MG TAB PO SCH ×3 (10:05→21:56)
[2020-03-04] MEDS: amLODIPine 10 MG TAB PO SCH ×3 (10:05→21:56)
[2020-03-04] MEDS: FAMOTIDINE 20 MG TAB PO SCH ×3 (10:05→22:05)
[2020-03-04] MEDS: SERTRALINE 25 MG TAB PO SCH (10:05)
--- NOTE | 2020-03-04 12:19 | Progress Note ---
Subjective - Reason for Consult Consult date: 03/04/20 Reason for consult: MHE Requesting physician: BRYAN FORMAN - Chief Complaint Chief complaint: Per Floor Nurse Verbal: Patient is still refusing to not take any medication HPI Patient patient seen at bedside this a.m., reports sleeping good and healing well. Patient acknowledged to not taking medications since the nurse was not able to explain in detail what the medications were. And she knows based on her education that those medications will mess up her brain because she does not believe she has the medical diagnoses that they trying to treat her for. MENTAL STATUS General Appearance and Behavior: age appropriate, good eye contact, cooperative with questioning and polite Cooperation: Cooperative Psychomotor Behavior: within normal limits Mood: Sad, depressed Affect and affective range: Labile Thought Process: Fluent/Logical and Goal-directed Thought Content: Paranoid delusions Speech: Normal volume and Regular rate and rhythm Intellectual Functioning Average Suicidal Ideation: Denies Homicidal Ideation: Denies HI Impulse Control: intact Insight and Judgment: Poor insight and judgment Memory: Normal Attention: Normal Orientation: alert and oriented Assessment and Plan - Psychiatric problem (1) Major depression, recurrent Current Visit: Yes Status: Acute Qualifiers: Active/Remission status: currently active Major depression episode severity: severe Psychotic features: with psychotic features Qualified Code(s): F33.3 - Major depressive disorder, recurrent, severe with psychotic symptoms (2) Paranoid schizophrenia Current Visit: Yes Status: Acute RECOMMENDATIONS MEDICATIONS: Will start patient on Sertraline 50 mg and add Buproprion which is activating Risks, benefits and alternatives of medications discussed with the patient, questions answered and consent obtained from patient. 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 Mental Status Exam - Vital signs Last Vital Signs Temp 99.1 F 03/04/20 05:15 Pulse 86 03/04/20 05:15 Resp 18 03/04/20 05:15 BP 160/95 03/04/20 05:15 Pulse Ox 95 03/04/20 05:15 Assessment and Plan - Patient Problems (1) Major depression, recurrent Current Visit: Yes Status: Acute Qualifiers: Active/Remission status: currently active Major depression episode severity: severe Psychotic features: with psychotic features Qualified Code(s): F33.3 - Major depressive disorder, recurrent, severe with psychotic symptoms (2) Paranoid schizophrenia Current Visit: Yes Status: Acute
--- NOTE | 2020-03-04 12:31 | Progress Note ---
Assessment and Plan / Drug Overdose with suicidal attempt Overdose with unknown tablets of Unisom which contains diphenhydramine s/p IV fluids , continue close observation Mental health consulted, EKG showed normal QTC /Paranoid schizophrenia -Ruled out depression and anxiety -Psychiatry consulted, will follow recommendation - Risperidone 1mg bid for psychosis - patient also on Sertraline 50 mg and Buproprion -Need inpatient psych placement / RAUL (acute kidney injury) , resolved with IV fluid Secondary to vasomotor nephropathy / Hypertension, uncontrolled Hydrochlorothiazide, Valsartan discontinued BP today well controlled with amlodipine and metoprolol / Suicidal ideation Mental health consulted, sitter in place / Anemia, due to iron deficiency Started on ferrous gluconate after the blood is drawn / Hypokalemia Mild secondary to hydrochlorothiazide Supplemented, Hydrochlorothiazide stopped /Mild tension headache -Could be also secondary to uncontrolled blood pressure -Tylenol as needed / DVT prophylaxis On Lovenox 40 mg subcu daily and GI prophylaxis 02/28: Continue to monitor renal function, will also change antihypertensive to amlodipine and hydralazine. 03/01: Renal function improved, will stop hydralazine and continue amlodipine with metoprolol for blood pressure control. 03/02: Patient is medically stable to transfer to inpatient psych unit when bed available 03/03: Patient is medically stable, waiting for inpatient psych placement 03/04: Patient has been refusing her medications, explained to her the importance of taking antihypertensives. Otherwise medically stable for inpatient psych placement Subjective Date of service: 03/04/20 Interval history: Patient seen and examined. Medical records and medication list reviewed. No acute event overnight noted by the RN. Patient denies any chest pain or difficulty breathing. Patient is tolerating diet. Discussed plan of care at bedside with patient and encouraged her to take medications. . Objective - Exam Narrative Exam: General appearance: Present: no acute distress, morbidly obese - EENT Eyes: Present: PERRL ENT: hearing intact, clear oral mucosa - Neck Neck: Present: supple, normal ROM - Respiratory Respiratory effort: normal Respiratory: bilateral: CTA - Cardiovascular Heart Sounds: Present: S1 & S2. Absent: rub, click - Extremities Extremities: pulses symmetrical, No edema Peripheral Pulses: within normal limits - Abdominal General gastrointestinal: Present: soft, non-tender, non-distended, normal bowel sounds Female genitourinary: Present: normal - Integumentary Integumentary: Present: clear, warm, dry - Musculoskeletal Musculoskeletal: gait normal, strength equal bilaterally - Psychiatric Psychiatric: Patient appears very paranoid, depressed and anxious. Getting tearful often during the encounter - Neurologic Neurologic: CNII-XII intact, moves all extremities - Constitutional Vitals: Vital Signs - 12hr 03/04/20 05:15 Temperature 99.1 F Pulse Rate 86 Respiratory 18 Rate Blood Pressure 160/95 O2 Sat by Pulse 95 Oximetry - Labs CBC & Chem 7: 02/29/20 06:45 03/01/20 03:25
[2020-03-04] MEDS: ENOXAPARIN 40 MG/0.4 ML INJ SUB-Q SCH (22:05)
[2020-03-05] MEDS: METOPROLOL TARTRATE 100 MG TAB PO SCH ×2 (09:50→21:54)
[2020-03-05] MEDS: amLODIPine 10 MG TAB PO SCH (09:50)
[2020-03-05] MEDS: buPROPion 100 MG TAB PO SCH ×2 (09:51→21:54)
[2020-03-05] MEDS: SERTRALINE 25 MG TAB PO SCH ×2 (09:52→10:24)
[2020-03-05] MEDS: FAMOTIDINE 20 MG TAB PO SCH ×2 (09:52→21:56)
[2020-03-05] MEDS: FERROUS SULFATE 325 MG TAB PO SCH (09:52)
--- NOTE | 2020-03-05 12:32 | Progress Note ---
Subjective - Reason for Consult Consult date: 03/05/20 Reason for consult: MHE Requesting physician: BRYAN FORMAN - Chief Complaint Chief complaint: Per Floor Nurse Verbal: Patient only took her Blood Pressure medicines, the rest of her medicines she refused it. HPI Patient patient seen at bedside this a.m., patient reports feeling this morning because she does not feel like she is being treated fairly. She reports she has been taking her medications but nurse noted this a.m. contradicts what patient said because patient refused her psych medication. Patient also reports she is not happy because she is not been allowed to use the phone. Sleep or poor sleep and appetite. MENTAL STATUS General Appearance and Behavior: age appropriate, good eye contact, cooperative with questioning and polite Cooperation: Cooperative Psychomotor Behavior: within normal limits Mood: Sad, depressed Affect and affective range: Labile Thought Process: Fluent/Logical and Goal-directed Thought Content: Paranoid delusions Speech: Normal volume and Regular rate and rhythm Intellectual Functioning Average Suicidal Ideation: Denies Homicidal Ideation: Denies HI Impulse Control: intact Insight and Judgment: Poor insight and judgment Memory: Normal Attention: Normal Orientation: alert and oriented Assessment and Plan - Psychiatric problem (1) Major depression, recurrent Current Visit: Yes Status: Acute Qualifiers: Active/Remission status: currently active Major depression episode severity: severe Psychotic features: with psychotic features Qualified Code(s): F33.3 - Major depressive disorder, recurrent, severe with psychotic symptoms (2) Paranoid schizophrenia Current Visit: Yes Status: Acute RECOMMENDATIONS We will continue to recommend inpatient, suicidal attempt/risk is high given patient loneliness, major depression, unemployment, single status, does not feel she has family support, and noncompliance with medication. MEDICATIONS: Will start patient on Sertraline 50 mg and add Buproprion which is activating Risks, benefits and alternatives of medications discussed with the patient, questions answered and consent obtained from patient. 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 Mental Status Exam - Vital signs Last Vital Signs Temp 98.5 F 03/05/20 08:41 Pulse 84 03/05/20 10:00 Resp 19 03/05/20 10:00 BP 162/96 03/05/20 09:50 Pulse Ox 99 03/05/20 10:00 Assessment and Plan - Patient Problems (1) Major depression, recurrent Current Visit: Yes Status: Acute Qualifiers: Active/Remission status: currently active Major depression episode severity: severe Psychotic features: with psychotic features Qualified Code(s): F33.3 - Major depressive disorder, recurrent, severe with psychotic symptoms (2) Paranoid schizophrenia Current Visit: Yes Status: Acute
--- NOTE | 2020-03-05 13:02 | Progress Note ---
Assessment and Plan / Drug Overdose with suicidal attempt Overdose with unknown tablets of Unisom which contains diphenhydramine s/p IV fluids , continue close observation Mental health consulted, EKG showed normal QTC /Paranoid schizophrenia -Ruled out depression and anxiety -Psychiatry consulted, will follow recommendation - Risperidone 1mg bid for psychosis - patient also on Sertraline 50 mg and Buproprion -Need inpatient psych placement / RAUL (acute kidney injury) , resolved with IV fluid Secondary to vasomotor nephropathy / Hypertension, uncontrolled Hydrochlorothiazide, Valsartan discontinued BP today well controlled with amlodipine and metoprolol / Suicidal ideation Mental health consulted, sitter in place / Anemia, due to iron deficiency Started on ferrous gluconate after the blood is drawn / Hypokalemia Mild secondary to hydrochlorothiazide Supplemented, Hydrochlorothiazide stopped /Mild tension headache -Could be also secondary to uncontrolled blood pressure -Tylenol as needed / DVT prophylaxis On Lovenox 40 mg subcu daily and GI prophylaxis 02/28: Continue to monitor renal function, will also change antihypertensive to amlodipine and hydralazine. 03/01: Renal function improved, will stop hydralazine and continue amlodipine with metoprolol for blood pressure control. 03/02: Patient is medically stable to transfer to inpatient psych unit when bed available 03/03: Patient is medically stable, waiting for inpatient psych placement 03/04: Patient has been refusing her medications, explained to her the importance of taking antihypertensives. Otherwise medically stable for inpatient psych placement 03/05: Ordered UA, UDS, CT head as per requirement for inpatient psych admission at [facility]. Brief History: 39 y/o female with history of hypertension and psychiatric problems including depression and suicidal attempt in the past comes in for taking unknown quantity of Unisom tablets. Patient states she took a handful of Unasyn in order to go to sleep and not wake up. Patient has intentional overdose and called 911. Subjective Date of service: 03/05/20 Interval history: Patient seen and examined. Medical records and medication list reviewed. No acute event overnight noted by the RN. Patient denies any chest pain or difficulty breathing. Patient is tolerating diet. Discussed plan of care at bedside with patient Objective - Exam Narrative Exam: General appearance: Present: no acute distress, morbidly obese - EENT Eyes: Present: PERRL ENT: hearing intact, clear oral mucosa - Neck Neck: Present: supple, normal ROM - Respiratory Respiratory effort: normal Respiratory: bilateral: CTA - Cardiovascular Heart Sounds: Present: S1 & S2. Absent: rub, click - Extremities Extremities: pulses symmetrical, No edema Peripheral Pulses: within normal limits - Abdominal General gastrointestinal: Present: soft, non-tender, non-distended, normal bowel sounds Female genitourinary: Present: normal - Integumentary Integumentary: Present: clear, warm, dry - Musculoskeletal Musculoskeletal: gait normal, strength equal bilaterally - Psychiatric Psychiatric: Patient appears very paranoid, depressed and anxious. Getting tearful often during the encounter - Neurologic Neurologic: CNII-XII intact, moves all extremities - Constitutional Vitals: Vital Signs - 12hr 03/05/20 03/05/20 03/05/20 04:25 08:41 09:50 Temperature 97.7 F 98.5 F Pulse Rate 84 100 H 84 Pulse Rate [ Apical] Pulse Rate [ Left Radial] Pulse Rate [ Right Radial] Respiratory 18 20 Rate Blood Pressure 162/96 129/87 162/96 O2 Sat by Pulse 96 99 Oximetry 03/05/20 10:00 Temperature Pulse Rate Pulse Rate [ 84 Apical] Pulse Rate [ 84 Left Radial] Pulse Rate [ 84 Right Radial] Respiratory 19 Rate Blood Pressure O2 Sat by Pulse 99 Oximetry - Labs CBC & Chem 7: 02/29/20 06:45 03/01/20 03:25
[2020-03-05 16:44] LABS: Amphetamine Screen,Urine PRESUMPTIVE NEGATIVE; Benzodiazepines Screen,Urine PRESUMPTIVE NEGATIVE; Cannabinoid Screen,Urine PRESUMPTIVE NEGATIVE; Cocaine Screen,Urine PRESUMPTIVE NEGATIVE; Methadone Screen,Urine PRESUMPTIVE NEGATIVE; Opiate Screen,Urine PRESUMPTIVE NEGATIVE
[2020-03-05 16:49] LABS: Bacteria,Urine 1+ /HPF (Negative); Bilirubin,Urine NEG (Negative); Blood,Urine NEG (Negative); Color,Urine Straw (Yellow); Mucus,Urine FEW /HPF; Urobilinogen,Urine < 2.0 mg/dL (<2.0)
[2020-03-05] MEDS: ENOXAPARIN 40 MG/0.4 ML INJ SUB-Q SCH (21:57)
--- NOTE | 2020-03-06 09:34 | Progress Note ---
Subjective - Reason for Consult Consult date: 03/06/20 Reason for consult: MHE, IMMANUEL Requesting physician: BRYAN FORMAN - Chief Complaint Chief complaint: Per Floor Nurse Verbal: patient again refused to have a CT of her head taken. patient only took her wellbutrin and metoprolol for the night. She has refused the other bedtime medications and refused to have an IV replaced in her. patient continues to be on suicide precautions. HPI Patient continues to be uncooperative, refusing medication and treatment time even though adequate was given to respond to her concerns about medication side effects and drug types. Patient aware of a pending facility willing to accept her pending Head CT and UDS but she refused Head CT. Patient denies SI but admits to depression. This is patient 7th day on 1012, patient is stating she knows it lapses. Patient is also requesting her diagnosis be changed. I discussed patient refusal of treatment with Dr. Harris. He recommends patient to be discharged with safety plan and family contacted and informed. MENTAL STATUS General Appearance and Behavior: age appropriate, good eye contact, cooperative with questioning and polite Cooperation: Uncooperative Psychomotor Behavior: within normal limits Mood: Sad, depressed Affect and affective range: Labile Thought Process: Fluent/Logical and Goal-directed Thought Content: Paranoid Speech: Normal volume and Regular rate and rhythm Intellectual Functioning Average Suicidal Ideation: Denies Homicidal Ideation: Denies HI Impulse Control: intact Insight and Judgment: Poor insight and judgment Memory: Normal Attention: Normal Orientation: alert and oriented Assessment and Plan - Patient Problems (1) Major depression, recurrent Status: Acute Qualifiers: Active/Remission status: currently active Major depression episode severity: severe Psychotic features: with psychotic features Qualified Code(s): F33.3 - Major depressive disorder, recurrent, severe with psychotic symptoms (2) Paranoid schizophrenia Status: Acute (3) Paranoid personality (disorder) Status: Acute (4) Suicide attempt by drug overdose Status: Acute (5) Noncompliance by refusing intervention or support Status: Acute RECOMMENDATIONS Patient denies suicidal ideation but has also refused medication and any sort of psychological intervention during her stay. She also denies imaging as requested by referral facility. Per Psychiatrist recommendation, family will be notified and patient to be discharged with safety plan. MEDICATIONS: Will start patient on Sertraline 50 mg and add Buproprion outp atient Risks, benefits and alternatives of medications discussed with the patient, questions answered and consent obtained from patient. PSYCHOTHERAPY: Supportive psychotherapy provided MEDICAL: Per primary team BRICK HANDLER: No DISPOSITION: No inpatient psychiatric hospitalization when medically stable LEGAL STATUS: Rescind 1013 FOLLOW-UP: Sign off Patient to be discharged with complete safety plan with [facility]. Please provide outpatient resources Mental Status Exam - Vital signs Last Vital Signs Temp 98.6 F 03/06/20 08:23 Pulse 85 03/06/20 08:23 Resp 18 03/06/20 08:23 BP 174/98 03/06/20 08:23 Pulse Ox 98 03/06/20 08:23 Assessment and Plan - Patient Problems (1) Major depression, recurrent Status: Acute Qualifiers: Active/Remission status: currently active Major depression episode severity: severe Psychotic features: with psychotic features Qualified Code(s): F33.3 - Major depressive disorder, recurrent, severe with psychotic symptoms (2) Paranoid schizophrenia Status: Acute (3) Paranoid personality (disorder) Status: Acute (4) Suicide attempt by drug overdose Status: Acute (5) Noncompliance by refusing intervention or support Status: Acute
[2020-03-06] MEDS: SERTRALINE 25 MG TAB PO SCH (10:39)
[2020-03-06] MEDS: buPROPion 100 MG TAB PO SCH (10:40)
[2020-03-06] MEDS: FERROUS SULFATE 325 MG TAB PO SCH (10:40)
[2020-03-06] MEDS: METOPROLOL TARTRATE 100 MG TAB PO SCH (10:40)
[2020-03-06] MEDS: amLODIPine 10 MG TAB PO SCH (10:40)
[2020-03-06] MEDS: FAMOTIDINE 20 MG TAB PO SCH (10:41)
[2020-03-06 12:49] VITALS: BP 149/95
--- NOTE | 2020-03-06 16:35 | Discharge Summary ---
Providers - Providers Date of Admission: 02/28/20 12:28 Date of discharge: 03/06/20 Attending physician: CLAIRE BRIGGS 02/28/20 Consult to Case Management [CONS] Routine Services Needed at Discharge: Home Health Services Notified:: showcase maker 02/28/20 05:41 Consult to Mental Health [CONS] Routine Reason For Exam: Overdose with Unisom tablets Primary care physician: [facility] Hospitalization Condition: Stable Hospital course: Patient is a 39 yo woman with a history of hypertension and MDD with psychiatric features who presented to [facility] ED after suicidal attempt of taking unknown quantity of Unisom tablets. Patient states she took a handful of Unisom in order to go to sleep and not wake up. Patient has intentional overdose and called 911. Hospital Coarse: 02/28: Continue to monitor renal function, will also change antihypertensive to amlodipine and hydralazine. 03/01: Renal function improved, will stop hydralazine and continue amlodipine with metoprolol for blood pressure control. 03/02: Patient is medically stable to transfer to inpatient psych unit when bed available 03/03: Patient is medically stable, waiting for inpatient psych placement 03/04: Patient has been refusing her medications, explained to her the importance of taking antihypertensives. Otherwise medically stable for inpatient psych placement 03/05: Ordered UA, UDS, CT head as per requirement for inpatient psych admission at [facility]. 03/06: Patient refused CT head, but ua and UDS negative. patient denies SI and psych team has rescinded 1013, I did speak with Dr. Almazan, Psychiatrist Discharge Diagnoses: / Drug Overdose with suicidal attempt Overdose with unknown tablets of Unisom which contains diphenhydramine s/p IV fluids , continue close observation Mental health consulted, EKG showed normal QTC /Paranoid schizophrenia -Ruled out depression and anxiety -Psychiatry consulted, will follow recommendation - Risperidone 1mg bid for psychosis - patient also on Sertraline 50 mg and Buproprion -Need inpatient psych placement / RAUL (acute kidney injury) , resolved with IV fluid Secondary to vasomotor nephropathy / Hypertension, uncontrolled Hydrochlorothiazide, Valsartan discontinued BP today well controlled with amlodipine and metoprolol / Suicidal ideation Mental health consulted, sitter in place / Anemia, due to iron deficiency Started on ferrous gluconate after the blood is drawn / Hypokalemia Mild secondary to hydrochlorothiazide Supplemented, Hydrochlorothiazide stopped /Mild tension headache -Could be also secondary to uncontrolled blood pressure -Tylenol as needed / DVT prophylaxis On Lovenox 40 mg subcu daily and GI prophylaxis Disposition: DC- TO HOME OR SELFCARE Time spent for discharge: 36 minutes Core Measure Documentation - Palliative Care Palliative Care/ Comfort Measures: Not Applicable - Core Measures Any of the following diagnoses?: none - VTE Discharge Requirements Deep Vein Thrombosis/Pulmonary Embolism Present on Admission: No Has pt received <5 days of overlap therapy or INR<2.0: No Anticoagulant overlap therapy prescribed at discharge: No Contraindication No Overlap Therapy order at DC: Not Indicated Exam - Physical Exam Narrative exam: Gen: WDWN, NAD, Awake, Alert, Orientated x 3, bmi 50.3 HEENT: NCAT, EOMI, PERRL, OP Clear Neck: supple, no adenopathy, no thyromegaly, no JVD CVS/Heart: RRR, normal S1S2, pulses present bilaterally Chest/Lungs: CTA B, Symmetrical chest expansion, good air entry bilaterally GI/Abdomen: soft, NTND, good bowel sounds, no guarding or rebound /Bladder: no suprapubic tenderness, no CVA or paraspinal tenderness Extermity/Skin: no c/c/e, no obvious rash MSK: FROM x 4 Neuro: CN 2-12 grossly intact, no new focal deficits Psych: calm - Constitutional Vitals: Temp Pulse Resp BP Pulse Ox 98.8 F 79 17 149/95 97 03/06/20 11:35 03/06/20 11:35 03/06/20 11:35 03/06/20 11:35 03/06/20 11:35 Plan Activity: other (no strenous activity unless cleared by PCP) Diet: regular Follow up with: [facility] MD VERONICA [Primary Care Provider] - 3-5 Days JENNY ALMAZAN MD [Staff Physician] - 7 Days Prescriptions: Acetaminophen [Acetaminophen TAB] 325 mg PO Q4H PRN #6 tablet PRN Reason: Pain MILD(1-3)/Fever >100.5/ZAMAN amLODIPine 10 mg PO QDAY #30 tablet Metoprolol [Lopressor TAB] 100 mg PO BID #60 tablet buPROPion [Wellbutrin] 100 mg PO BID #60 tablet Sertraline [Zoloft] 50 mg PO QDAY #30 tablet
== END 2020-03-06 17:28 | disposition home or self-care (01) | DRG 917 ==
LOC: ED 21:42 → 4A 23:34 → OBSVTOIN 02-28 12:28
PROVIDERS: ADMIT Internal Medicine; ATTEND Internal Medicine
DX: T50.902A Poisoning by unspecified drugs, medicaments and biological substances, intentional self-harm, initial encounter (principal); N17.0 Acute kidney failure with tubular necrosis; F20.0 Paranoid schizophrenia; R45.851 Suicidal ideations; I10 Essential (primary) hypertension; E87.6 Hypokalemia; F32.9 Major depressive disorder, single episode, unspecified; Z88.0 Allergy status to penicillin; Z88.6 Allergy status to analgesic agent; Z79.899 Other long term (current) drug therapy; Y92.89 Other specified places as the place of occurrence of the external cause; T65.92XA Toxic effect of unspecified substance, intentional self-harm, initial encounter
CPT/HCPCS: 36415; 80048; 80053; 80307; 80320; 81001; 82747; 83036; 83550; 83735; 84443; 84481; 84703; 85025; 93005; 93010; G0378; G0480; J0360; J1650; J7030; J7042

== ENCOUNTER 2022-01-11 12:08 | Inpatient (IN) | payer SELFPAY ==
[2022-01-11] MEDS ORDERED: SODIUM CHLORIDE 0.9% 1000 ML 1,000 ML IV ONE ×2 (12:33→14:05)
--- NOTE | 2022-01-11 13:24 | Emergency Department Report ---
History of Present Illness - General Chief Complaint: Psych Stated Complaint: OVERDOSE Time Seen by Provider: 01/11/22 12:27 Source: family Mode of arrival: Wheelchair Limitations: No Limitations - History of Present Illness Initial Comments: Patient is a 41-year-old female who presents to emergency department with complaint of drug overdose. Patient states that she took 40 tablets of 500 mg tylenol. She is complaining of nausea, abdominal pain. Patient states that she was having flank pain prior to taking the Tylenol and she took Tylenol initially to relieve her pain however she then states she did try to end her life with the Tylenol overdose. Complaint: intentional overdose - Related Data Previous Rx's Medication Instructions Recorded Last Taken Type ARIPiprazole [Abilify TAB] 10 mg PO QDAY tablet 01/20/22 Unknown Rx Mirtazapine [Remeron 15mg TAB] 15 mg PO QHS tablet 01/20/22 Unknown Rx Multivitamin Tab [Multiple Vitamin 1 each PO QDAY tablet 01/20/22 Unknown Rx TAB (Theragran)] NIFEdipine XL [Procardia Xl] 30 mg PO QDAY tablet 01/20/22 Unknown Rx Sertraline [Zoloft] 50 mg PO QDAY tablet 01/20/22 Unknown Rx Allergies Allergy/AdvReac Type Severity Reaction Status Date / Time aspirin Allergy Unknown Verified 01/11/22 12:34 NSAIDS (Non-Steroidal Allergy Unknown Verified 01/11/22 12:34 Anti-Inflamma Penicillins Allergy Anaphylaxis Verified 01/11/22 12:34 ED Review of Systems ROS: Stated complaint: OVERDOSE Other details as noted in HPI Constitutional: denies: chills, fever Eyes: denies: eye pain, eye discharge, vision change ENT: denies: ear pain, throat pain Respiratory: denies: cough, shortness of breath, wheezing Cardiovascular: denies: chest pain, palpitations Endocrine: no symptoms reported Gastrointestinal: abdominal pain, nausea, vomiting Genitourinary: denies: urgency, dysuria, discharge Musculoskeletal: denies: back pain, joint swelling, arthralgia Skin: denies: rash, lesions Neurological: denies: headache, weakness, paresthesias Psychiatric: denies: anxiety, depression Hematological/Lymphatic: denies: easy bleeding, easy bruising ED Past Medical Hx - Past Medical History Hx Hypertension: Yes Hx Congestive Heart Failure: No Hx Diabetes: No Hx Psychiatric Treatment: Yes Hx Asthma: No Hx COPD: No - Social History Smoking Status: Never Smoker Substance Use Type: None - Medications Home Medications: Home Medications Medication Instructions Recorded Confirmed Last Taken Type ARIPiprazole [Abilify TAB] 10 mg PO QDAY tablet 01/20/22 Unknown Rx Mirtazapine [Remeron 15mg TAB] 15 mg PO QHS tablet 01/20/22 Unknown Rx Multivitamin Tab [Multiple Vitamin 1 each PO QDAY tablet 01/20/22 Unknown Rx TAB (Theragran)] NIFEdipine XL [Procardia Xl] 30 mg PO QDAY tablet 01/20/22 Unknown Rx Sertraline [Zoloft] 50 mg PO QDAY tablet 01/20/22 Unknown Rx ED Physical Exam - General Limitations: No Limitations General appearance: alert, in distress - Head Head exam: Present: atraumatic, normocephalic - Eye Eye exam: Present: normal appearance - ENT ENT exam: Present: mucous membranes moist - Neck Neck exam: Present: normal inspection - Respiratory Respiratory exam: Present: normal lung sounds bilaterally. Absent: respiratory distress - Cardiovascular Cardiovascular Exam: Present: regular rate, normal rhythm. Absent: systolic murmur, diastolic murmur, rubs, gallop - GI/Abdominal GI/Abdominal exam: Present: soft, tenderness - Rectal Rectal exam: Present: deferred - Extremities Exam Extremities exam: Present: normal inspection - Back Exam Back exam: Present: normal inspection - Neurological Exam Neurological exam: Present: alert, oriented X3 - Psychiatric Psychiatric exam: Present: suicidal ideation - Skin Skin exam: Present: warm, dry, intact, normal color. Absent: rash ED Course Vital Signs 01/11/22 01/11/22 01/11/22 12:32 12:33 12:46 Temperature Pulse Rate 95 H 86 Pulse Rate [ From Monitor] Respiratory 22 12 Rate Blood Pressure 138/77 Blood Pressure [Right] O2 Sat by Pulse 99 100 Oximetry 01/11/22 01/11/22 01/11/22 13:00 13:16 13:30 Temperature Pulse Rate 78 97 H 98 H Pulse Rate [ From Monitor] Respiratory 21 16 Rate Blood Pressure 160/91 160/91 157/87 Blood Pressure [Right] O2 Sat by Pulse 100 98 100 Oximetry 01/11/22 01/11/22 01/11/22 13:46 14:00 14:16 Temperature Pulse Rate Pulse Rate [ From Monitor] Respiratory Rate Blood Pressure 158/101 145/94 137/88 Blood Pressure [Right] O2 Sat by Pulse 98 100 98 Oximetry 01/11/22 01/11/22 01/11/22 14:30 14:46 15:00 Temperature Pulse Rate Pulse Rate [ From Monitor] Respiratory Rate Blood Pressure 137/88 137/88 137/88 Blood Pressure [Right] O2 Sat by Pulse 98 100 100 Oximetry 01/11/22 01/11/22 01/11/22 15:16 15:30 15:46 Temperature Pulse Rate 92 H Pulse Rate [ From Monitor] Respiratory 16 Rate Blood Pressure 137/88 137/88 137/88 Blood Pressure [Right] O2 Sat by Pulse 100 100 99 Oximetry 01/11/22 01/11/22 01/11/22 16:00 16:16 16:30 Temperature Pulse Rate Pulse Rate [ From Monitor] Respiratory Rate Blood Pressure 141/93 151/88 147/84 Blood Pressure [Right] O2 Sat by Pulse 99 98 96 Oximetry 01/11/22 01/11/22 01/11/22 16:46 17:00 17:16 Temperature Pulse Rate 94 H Pulse Rate [ From Monitor] Respiratory 22 Rate Blood Pressure 135/83 133/74 118/86 Blood Pressure [Right] O2 Sat by Pulse 97 98 99 Oximetry 01/11/22 01/11/22 01/11/22 17:30 17:46 18:00 Temperature Pulse Rate 91 H 89 90 Pulse Rate [ From Monitor] Respiratory 23 21 Rate Blood Pressure 151/93 163/92 156/85 Blood Pressure [Right] O2 Sat by Pulse 99 99 99 Oximetry 01/11/22 01/11/22 01/11/22 18:16 18:38 18:46 Temperature Pulse Rate 89 95 H Pulse Rate [ From Monitor] Respiratory 14 Rate Blood Pressure 170/80 170/80 164/91 Blood Pressure [Right] O2 Sat by Pulse 98 98 98 Oximetry 01/11/22 01/11/22 01/11/22 19:00 20:00 21:00 Temperature Pulse Rate 94 H 111 H Pulse Rate [ 110 H From Monitor] Respiratory 24 18 Rate Blood Pressure 164/91 132/76 Blood Pressure [Right] O2 Sat by Pulse 99 100 Oximetry 01/11/22 21:12 Temperature 98.5 F Pulse Rate 104 H Pulse Rate [ From Monitor] Respiratory 18 Rate Blood Pressure Blood Pressure 136/76 [Right] O2 Sat by Pulse 99 Oximetry - Reevaluation(s) Reevaluation #1: 01/11/22 14:06 Patient's labs do show evidence of Tylenol overdose. Patient has elevated LFTs, elevated Tylenol level. Given this Acetadote was started and she will receive the additional doses as well. Plan for admission to the hospitalist for further management. - Consultations Consultation #1: 01/11/22 13:25 I discussed patient's care with the poison control. They recommend that we give Acetadote. This has been ordered. The appropriate labs have also been ordered. The plan is if patient's INR is greater than 1.4 if she has elevations in her LFTs if she has an alcohol level above 10 or any detectable Tylenol level then she should be admitted for further Acetadote. 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 Plan for labs including Tylenol levels, other toxic ingestions, EKG, will give IV fluids and Zofran. Patient likely to require Acetadote. Plan to discuss with positive poison control. Patient has also been placed on a 1013 given her suicide attempt Critical care attestation.: If time is entered above; I have spent that time in minutes in the direct care of this critically ill patient, excluding procedure time. ED Disposition Clinical Impression: Acetaminophen overdose Disposition: ADMITTED INPATIENT Is pt being admited?: Yes Does the pt Need Aspirin: No Condition: Stable
[2022-01-11 13:37] LABS: Albumin 4.1 g/dL (3.9-5); Calcium 9.4 mg/dL (8.4-10.2)
[2022-01-11] MEDS ORDERED: ONDANSETRON 4 MG/2 ML INJ IV ONE (13:45)
[2022-01-11 13:51] LABS: Mean Corpuscular HGB Conc 30 % (30-34); Mean Corpuscular Volume 78 fl (79-97); Platelet Count 207 K/mm3 (140-440); Red Blood Count 4.86 M/mm3 (3.65-5.03)
[2022-01-11 13:59] LABS: Hematocrit 37.8 % (30.3-42.9); Hemoglobin 11.3 gm/dl (10.1-14.3); Red Cell Distribution Width 26.9 % (13.2-15.2)
[2022-01-11] MEDS ORDERED: ACETADOTE (ACETYLCYSTEINE IV) 15,000 MG in DEXTROSE 5% IN WATER 200 ML IV ONE (14:00)
--- NOTE | 2022-01-11 14:37 | History and Physical Report ---
History of Present Illness Chief complaint: She took some pills History of present illness: 41 YO Female with Obesity Hypoventilation Syndrome, HTN, MDD, Paranoid Schizophrenia, Prior Suicide Attempt with medication overdose presents to ED for evaluation. Patient exhibits tangential thinking and is unable to provide detailed history. Patient history taken from EMS staff, ED staff, as well as the patient's sister who accompanied the patient to the emergency department. Patient sister reports that the patient took approximately 40 tablets of Tylenol 500 mg over the past 1 day in an effort to relieve pain as well as an attempt to take her own life. Patient transported [facility] via private vehicle for further care and evaluation of the aforementioned symptoms. The patient was seen and evaluated in the emergency department. All lab and imaging studies reviewed. Patient found to have acute kidney injury, systemic plantar response syndrome, as well as suicide attempt complicated by psychotic break. [address] Mental health team consulted in ED. Poison control notified. Patient treated with Acetadote as per poison control protocol. Patient admitted to IMCU due to increased risk of worsening symptoms. Patient exhibits tangential thinking at time of evaluation but has a positive gag reflex and is able to protect her airway without difficulty. No reports of fever, chills, chest pain, palpitation or productive cough, skin rash, recent contact, or known exposure to COVID-19. Prior admission for 02/28/20 reviewed. All medication listed at time of admission has been reconciled. Advanced care planning conducted in ED. Past History Past Medical History: other (See HPI) Past Surgical History: No surgical history, Other (Reviewed) Social history: single. denies: smoking, alcohol abuse, prescription drug abuse Family history: diabetes, hypertension Medications and Allergies Allergies Allergy/AdvReac Type Severity Reaction Status Date / Time aspirin Allergy Unknown Verified 01/11/22 12:34 NSAIDS (Non-Steroidal Allergy Unknown Verified 01/11/22 12:34 Anti-Inflamma Penicillins Allergy Anaphylaxis Verified 01/11/22 12:34 Home Medications Medication Instructions Recorded Confirmed Last Taken Type Acetaminophen [Acetaminophen TAB] 325 mg PO Q4H PRN #6 tablet 03/06/20 Unknown Rx Metoprolol [Lopressor TAB] 100 mg PO BID #60 tablet 03/06/20 Unknown Rx Sertraline [Zoloft] 50 mg PO QDAY #30 tablet 03/06/20 Unknown Rx amLODIPine 10 mg PO QDAY #30 tablet 03/06/20 Unknown Rx buPROPion [Wellbutrin] 100 mg PO BID #60 tablet 03/06/20 Unknown Rx Active Meds: Active Medications Acetylcysteine 15,000 mg/ (Dextrose) 275 mls @ 200 mls/hr IV ONCE ONE Stop: 01/11/22 15:22 Last Admin: 01/11/22 14:17 Dose: 200 mls/hr Acetylcysteine 5,000 mg/ (Dextrose) 525 mls @ 125 mls/hr IV ONCE ONE Stop: 01/11/22 19:41 Acetylcysteine 10,000 mg/ (Dextrose) 1,050 mls @ 62.5 mls/hr IV ONCE ONE Stop: 01/12/22 12:17 Sodium Chloride (Nacl 0.9% 1000 Ml) 1,000 mls @ 999 mls/hr IV BOLUS ONE Stop: 01/11/22 15:05 Review of Systems ROS unobtainable: due to mental status Exam - Constitutional Vitals: Temp Pulse Resp BP Pulse Ox 97 H 16 160/91 98 01/11/22 13:16 01/11/22 13:16 01/11/22 13:16 01/11/22 13:16 General appearance: Present: mild distress - EENT Eyes: Present: PERRL ENT: hearing intact, clear oral mucosa - Neck Neck: Present: supple, normal ROM - Respiratory Respiratory effort: normal Respiratory: bilateral: CTA - Cardiovascular Heart Sounds: Present: S1 & S2. Absent: rub, click - Extremities Extremities: pulses symmetrical, No edema Peripheral Pulses: within normal limits - Abdominal General gastrointestinal: Present: soft, non-tender, non-distended, normal bowel sounds Female genitourinary: Present: normal - Integumentary Integumentary: Present: clear, dry - Musculoskeletal Musculoskeletal: strength equal bilaterally - Psychiatric Psychiatric: no appropriate mood/affect, no intact judgment & insight, no memory intact - Neurologic Neurologic: CNII-XII intact, no focal deficits, moves all extremities, gait normal Results - Labs CBC & Chem 7: 01/11/22 12:48 01/11/22 12:48 Labs: Abnormal lab results 01/11/22 01/11/22 01/11/22 Range/Units 12:48 12:48 12:48 WBC 13.6 H (4.5-11.0) K/mm3 MCV 78 L (79-97) fl MCH 23 L (28-32) pg RDW 26.9 H (13.2-15.2) % Carbon Dioxide 16 L (22-30) mmol/L BUN 19 H (7-17) mg/dL Creatinine 2.3 H (0.6-1.2) mg/dL Glucose 157 H (65-100) mg/dL AST 339 H (5-40) units/L ALT 356 H (7-56) units/L Total Protein 8.3 H (6.3-8.2) g/dL Salicylates < 0.3 L (2.8-20.0) mg/dL Assessment and Plan - Patient Problems (1) Suicide attempt by drug overdose Current Visit: No Status: Acute Plan to address problem: Tylenol overdose: Patient treated with Acetadote. Poison control notified. IV fluid resuscitation therapy, supportive care. Avoid hepatotoxic agents. (2) SIRS (systemic inflammatory response syndrome) Current Visit: Yes Status: Acute Plan to address problem: Supportive care, CBC, repeat CBC in a.m. No source of infection found at this time. (3) RAUL (acute kidney injury) Current Visit: No Status: Acute Plan to address problem: IV fluid resuscitation therapy, BMP, repeat BMP in a.m. to monitor serum creatinine as well as GFR. Monitor fluid balance. (4) Paranoid schizophrenia Current Visit: No Status: Acute Plan to address problem: Mental health team consulted, continue medical management, supportive care. (5) DVT prophylaxis Current Visit: No Status: Acute Plan to address problem: SCD to bilateral lower extremities while in bed (6) Advance care planning Current Visit: Yes Status: Acute Plan to address problem: Disease education conducted, care plan discussed, diagnoses discussed, prognosis discussed, patient is full code. Patient family knowledge understanding and agreed with care plan, +30 minutes.
[2022-01-11] MEDS ORDERED: IBUPROFEN 600 MG TAB PO PRN (14:41)
[2022-01-11] MEDS ORDERED: HYDROmorphone 1 MG/1 ML INJ IV PRN (14:41)
[2022-01-11] MEDS ORDERED: ALBUTEROL 2.5 MG/3 ML NEBU IH PRN (14:41)
[2022-01-11 15:18] LABS: INR 1.31 (0.87-1.13)
[2022-01-11] MEDS ORDERED: ACETADOTE(ACETYLCYSTEINE IV) 5,000 MG in DEXTROSE 5% IN WATER 500 ML IV ONE (15:30)
[2022-01-11 17:05] LABS: Anisocytosis 2+; Band Neutrophils # (Manual) 0.1 K/mm3; Basophils % (Manual) 0 % (0.0-1.8); Eosinophils % (Manual) 0 % (0.0-4.3); Hypochromasia 1+; Platelet Estimate Consistent w Auto; Total Cells Counted 100
[2022-01-11 19:19] LABS: HCG Qualitative,Urine Negative (Negative)
[2022-01-11 19:21] LABS: Bilirubin,Urine NEG (Negative); Blood,Urine NEG (Negative); Color,Urine Straw (Yellow); Urobilinogen,Urine < 2.0 mg/dL (<2.0); WBC,Urine < 1.0 /HPF (0.0-6.0)
[2022-01-11 19:30] LABS: Amphetamine Screen,Urine Negative; Benzodiazepines Screen,Urine Negative; Cannabinoid Screen,Urine Negative; Cocaine Screen,Urine Negative; Methadone Screen,Urine Negative; Opiate Screen,Urine Negative
[2022-01-11] MEDS ORDERED: ACETADOTE(ACETYLCYSTEINE IV) 10,000 MG in DEXTROSE 5% IN WATER 1,000 ML IV ONE (19:30)
[2022-01-12] MEDS: ONDANSETRON 4 MG/2 ML INJ IV PRN ×3 (02:42→22:59)
[2022-01-12 07:48] LABS: Albumin 3.5 g/dL (3.9-5)
[2022-01-12 10:52] LABS: INR 2.19 (0.87-1.13)
--- NOTE | 2022-01-12 12:11 | Progress Note ---
Assessment and Plan Assessment and plan: 41 YO Female with Obesity Hypoventilation Syndrome, HTN, MDD, Paranoid Schizophrenia, Prior Suicide Attempt with medication overdose presents to ED for evaluation. Patient exhibits tangential thinking and is unable to provide detailed history. Patient history taken from EMS staff, ED staff, as well as the patient's sister who accompanied the patient to the emergency department. Patient sister reports that the patient took approximately 40 tablets of Tylenol 500 mg over the past 1 day in an effort to relieve pain as well as an attempt to take her own life. Patient transported [facility] via private vehicle for further care and evaluation of the aforementioned symptoms. The patient was seen and evalu ated in the emergency department. All lab and imaging studies reviewed. Patient found to have acute kidney injury, systemic plantar response syndrome, as well as suicide attempt complicated by psychotic break. [address] Mental health team consulted in ED. Poison control notified. Patient treated with Acetadote as per poison control protocol. Patient admitted to IMCU due to increased risk of worsening symptoms. Patient exhibits tangential thinking at time of evaluation but has a positive gag reflex and is able to protect her airway without difficulty. No reports of fever, chills, chest pain, palpitation or productive cough, skin rash, recent contact, or known exposure to COVID-19. Prior admission for 02/28/20 reviewed. All medication listed at time of admission has been reconciled. Advanced care planning conducted in ED. 01/12: Continue current management. LFTs still significantly elevated actually going up discussed with pharmacist but the recommendation Acetadote will be restarted. We will monitor LFTs every 8 hours. Will contact poison control if worsening findings are noted. Patient with no evidence of metabolic encephalopathy at this time. Psych has been consulted. Continue 1013 (1) Suicide attempt by drug overdose Current Visit: No Status: Acute Plan to address problem: Tylenol overdose: Patient treated with Acetadote. Poison control notified. IV fluid resuscitation therapy, supportive care. Avoid hepatotoxic agents. (2) SIRS (systemic inflammatory response syndrome) Current Visit: Yes Status: Acute Plan to address problem: Supportive care, CBC, repeat CBC in a.m. No source of infection found at this time. (3) RAUL (acute kidney injury) Current Visit: No Status: Acute Plan to address problem: IV fluid resuscitation therapy, BMP, repeat BMP in a.m. to monitor serum creatinine as well as GFR. Monitor fluid balance. (4) Paranoid schizophrenia Current Visit: No Status: Acute Plan to address problem: Mental health team consulted, continue medical management, supportive care. (5) morbidly obese (6) DVT prophylaxis Current Visit: No Status: Acute Plan to address problem: SCD to bilateral lower extremities while in bed (7) Advance care planning Current Visit: Yes Status: Acute Plan to address problem: Disease education conducted, care plan discussed, diagnoses discussed, prognosis discussed, patient is full code. Patient family knowledge understanding and agreed with care plan, +30 minutes. History Interval history: Patient seen and examined this morning sitting up still with nausea and vomiting otherwise no new complaints. Hospitalist Physical - Physical exam Narrative exam: VITAL SIGNS: Reviewed. GENERAL: The patient appears normally developed, morbidly obese, vital signs as documented. HEAD: No signs of head trauma. EYES: Pupils are equal. Extraocular motions intact. EARS: Hearing grossly intact. MOUTH: Oropharynx is normal. NECK: No adenopathy, no JVD. CHEST: Chest with clear breath sounds bilaterally. No wheezes, rales, or rhonchi. CARDIAC: Regular rate and rhythm. S1 and S2, without murmurs, gallops, or rubs. VASCULAR: No Edema. Peripheral pulses normal and equal in all extremities. ABDOMEN: Soft, non tender and non distended. No rebound or guarding, and no masses palpated. Bowel Sounds normal. MUSCULOSKELETAL: Good range of motion of all major joints. Extremities without clubbing, cyanosis or edema. NEUROLOGIC EXAM: Alert and oriented x 3 No focal sensory or strength deficits. Speech normal. Follows commands. PSYCHIATRIC: Mood normal. SKIN: detail exam as documented in skin assessment - Constitutional Vitals: Temp Pulse Resp BP Pulse Ox 98.5 F 105 H 11 L 103/74 95 01/11/22 21:12 01/12/22 11:00 01/12/22 11:00 01/12/22 11:00 01/12/22 11:00 General appearance: Present: mild distress Results - Labs CBC & Chem 7: 01/11/22 12:48 01/12/22 07:15 Labs: Laboratory Last Values WBC 13.6 K/mm3 (4.5-11.0) H 01/11/22 12:48 RBC 4.86 M/mm3 (3.65-5.03) 01/11/22 12:48 Hgb 11.3 gm/dl (10.1-14.3) 01/11/22 12:48 Hct 37.8 % (30.3-42.9) 01/11/22 12:48 MCV 78 fl (79-97) L 01/11/22 12:48 MCH 23 pg (28-32) L 01/11/22 12:48 MCHC 30 % (30-34) 01/11/22 12:48 RDW 26.9 % (13.2-15.2) H 01/11/22 12:48 Plt Count 207 K/mm3 (140-440) 01/11/22 12:48 Lawrence % (Auto) Hand Cigar Maker 01/11/22 12:48 Eos % (Auto) Hand Cigar Maker 01/11/22 12:48 [place] # (Auto) Hand Cigar Maker 01/11/22 12:48 Eos # (Auto) Hand Cigar Maker 01/11/22 12:48 Baso # (Auto) Hand Cigar Maker 01/11/22 12:48 Add Manual Diff Complete 01/11/22 12:48 Total Counted 100 01/11/22 12:48 Seg Neuts % (Manual) 92.0 % (40.0-70.0) H 01/11/22 12:48 Band Neutrophils % 1.0 % 01/11/22 12:48 Lymphocytes % (Manual) 2.0 % (13.4-35.0) L 01/11/22 12:48 Reactive Lymphs % (Man) 0 % 01/11/22 12:48 Monocytes % (Manual) 5.0 % (0.0-7.3) 01/11/22 12:48 Eosinophils % (Manual) 0 % (0.0-4.3) 01/11/22 12:48 Basophils % (Manual) 0 % (0.0-1.8) 01/11/22 12:48 Metamyelocytes % 0 % 01/11/22 12:48 Myelocytes % 0 % 01/11/22 12:48 Promyelocytes % 0 % 01/11/22 12:48 Blast Cells % 0 % 01/11/22 12:48 Nucleated RBC % Not Reportable 01/11/22 12:48 Seg Neutrophils # Hand Cigar Maker 01/11/22 12:48 Seg Neutrophils # Man 12.5 K/mm3 (1.8-7.7) H 01/11/22 12:48 Band Neutrophils # 0.1 K/mm3 01/11/22 12:48 Lymphocytes # (Manual) 0.3 K/mm3 (1.2-5.4) L 01/11/22 12:48 Abs React Lymphs (Man) 0.0 K/mm3 01/11/22 12:48 Monocytes # (Manual) 0.7 K/mm3 (0.0-0.8) 01/11/22 12:48 Eosinophils # (Manual) 0.0 K/mm3 (0.0-0.4) 01/11/22 12:48 Basophils # (Manual) 0.0 K/mm3 (0.0-0.1) 01/11/22 12:48 Metamyelocytes # 0.0 K/mm3 01/11/22 12:48 Myelocytes # 0.0 K/mm3 01/11/22 12:48 Promyelocytes # 0.0 K/mm3 01/11/22 12:48 Blast Cells # 0.0 K/mm3 01/11/22 12:48 WBC Morphology Not Reportable 01/11/22 12:48 Hypersegmented Neuts Not Reportable 01/11/22 12:48 Hyposegmented Neuts Not Reportable 01/11/22 12:48 Hypogranular Neuts Not Reportable 01/11/22 12:48 Smudge Cells Not Reportable 01/11/22 12:48 Toxic Granulation Not Reportable 01/11/22 12:48 Toxic Vacuolation Not Reportable 01/11/22 12:48 Dohle Bodies Not Reportable 01/11/22 12:48 Pelger-Huet Anomaly Not Reportable 01/11/22 12:48 Celine Rods Not Reportable 01/11/22 12:48 Platelet Estimate Consistent w auto 01/11/22 12:48 Clumped Platelets Not Reportable 01/11/22 12:48 Plt Clumps, EDTA Not Reportable 01/11/22 12:48 Large Platelets Not Reportable 01/11/22 12:48 Giant Platelets Not Reportable 01/11/22 12:48 Platelet Satelliting Not Reportable 01/11/22 12:48 Plt Morphology Comment Not Reportable 01/11/22 12:48 RBC Morphology Not Reportable 01/11/22 12:48 Dimorphic RBCs Not Reportable 01/11/22 12:48 Polychromasia Not Reportable 01/11/22 12:48 Hypochromasia 1+ 01/11/22 12:48 Poikilocytosis Not Reportable 01/11/22 12:48 Anisocytosis 2+ 01/11/22 12:48 Microcytosis Not Reportable 01/11/22 12:48 Macrocytosis Not Reportable 01/11/22 12:48 Spherocytes Not Reportable 01/11/22 12:48 Pappenheimer Bodies Not Reportable 01/11/22 12:48 Sickle Cells Not Reportable 01/11/22 12:48 Target Cells Not Reportable 01/11/22 12:48 Tear Drop Cells Not Reportable 01/11/22 12:48 Ovalocytes Not Reportable 01/11/22 12:48 Helmet Cells Not Reportable 01/11/22 12:48 [place] Bodies Not Reportable 01/11/22 12:48 [place] Rings Not Reportable 01/11/22 12:48 Jc Cells Not Reportable 01/11/22 12:48 Bite Cells Not Reportable 01/11/22 12:48 Crenated Cell Not Reportable 01/11/22 12:48 Elliptocytes Not Reportable 01/11/22 12:48 Acanthocytes (Spur) Not Reportable 01/11/22 12:48 Rouleaux Not Reportable 01/11/22 12:48 Hemoglobin C Crystals Not Reportable 01/11/22 12:48 Schistocytes Not Reportable 01/11/22 12:48 Malaria parasites Not Reportable 01/11/22 12:48 Evans Bodies Not Reportable 01/11/22 12:48 Hem Pathologist Commnt No 01/11/22 12:48 PT 27.2 Sec. (12.2-14.9) H 01/12/22 07:15 INR 2.19 (0.87-1.13) H 01/12/22 07:15 Sodium 137 mmol/L (137-145) 01/12/22 07:15 Potassium 4.2 mmol/L (3.6-5.0) 01/12/22 07:15 Chloride 105.3 mmol/L (98-107) 01/12/22 07:15 Carbon Dioxide 17 mmol/L (22-30) L 01/12/22 07:15 Anion Gap 19 mmol/L 01/12/22 07:15 BUN 15 mg/dL (7-17) 01/12/22 07:15 Creatinine 2.0 mg/dL (0.6-1.2) H 01/12/22 07:15 Estimated GFR 33 ml/min 01/12/22 07:15 BUN/Creatinine Ratio 8 % 01/12/22 07:15 Glucose 135 mg/dL (65-100) H 01/12/22 07:15 Calcium 9.0 mg/dL (8.4-10.2) 01/12/22 07:15 Magnesium 2.20 mg/dL (1.7-2.3) 01/11/22 12:48 Total Bilirubin 1.20 mg/dL (0.1-1.2) 01/12/22 07:15 AST 1327 units/L (5-40) H 01/12/22 07:15 ALT 1480 units/L (7-56) H 01/12/22 07:15 Alkaline Phosphatase 99 units/L (35-129) 01/12/22 07:15 Total Protein 6.5 g/dL (6.3-8.2) D 01/12/22 07:15 Albumin 3.5 g/dL (3.9-5) L 01/12/22 07:15 Albumin/Globulin Ratio 1.2 % 01/12/22 07:15 Urine Color Straw (Yellow) 01/11/22 Unknown Urine Turbidity Clear (Clear) 01/11/22 Unknown Urine pH 5.0 (5.0-7.0) 01/11/22 Unknown Ur Specific Rescue 1.012 (1.003-1.030) 01/11/22 Unknown Urine Protein 100 mg/dl mg/dL (Negative) 01/11/22 Unknown Urine Glucose (UA) Neg mg/dL (Negative) 01/11/22 Unknown Urine Ketones 20 mg/dL (Negative) 01/11/22 Unknown Urine Blood Neg (Negative) 01/11/22 Unknown Urine Nitrite Neg (Negative) 01/11/22 Unknown Ur Reducing Substances Not Reportable 01/11/22 Unknown Urine Bilirubin Neg (Negative) 01/11/22 Unknown Urine Ictotest Not Reportable 01/11/22 Unknown Urine Urobilinogen < 2.0 mg/dL (<2.0) 01/11/22 Unknown Ur Leukocyte Esterase Neg (Negative) 01/11/22 Unknown Urine WBC (Auto) < 1.0 /HPF (0.0-6.0) 01/11/22 Unknown Urine RBC (Auto) 1.0 /HPF (0.0-6.0) 01/11/22 Unknown U Epithel Cells (Auto) < 1.0 /HPF (0-13.0) 01/11/22 Unknown Urine HCG, Qual Negative (Negative) 01/11/22 Unknown Salicylates < 0.3 mg/dL (2.8-20.0) L 01/11/22 12:48 Urine Opiates Screen Negative 01/11/22 Unknown Urine Methadone Screen Negative 01/11/22 Unknown Acetaminophen 5.0 ug/mL (10.0-30.0) L 01/12/22 10:32 Ur Barbiturates Screen Negative 01/11/22 Unknown Ur Phencyclidine Scrn Negative 01/11/22 Unknown Ur Amphetamines Screen Negative 01/11/22 Unknown U Benzodiazepines Scrn Negative 01/11/22 Unknown Urine Cocaine Screen Negative 01/11/22 Unknown U Marijuana (THC) Screen Negative 01/11/22 Unknown Drugs of Abuse Note Disclamer 01/11/22 Unknown Plasma/Serum Alcohol < 0.01 % (0-0.07) 01/11/22 12:48 Active Medications - Current Medications Current Medications: Generic Name Dose Route Start Last Admin Trade Name Freq PRN Reason Stop Dose Admin Albuterol 2.5 mg 01/11/22 14:41 Albuterol 2.5 Mg/3 Ml Nebu IH Q3HRT PRN Shortness Of Breath Hydromorphone HCl 0.5 mg 01/11/22 14:41 Hydromorphone 1 Mg/1 Ml Inj IV Q23H PRN Pain , Severe (7-10) Acetylcysteine 10,000 mg/ 1,050 mls @ 62.5 mls/hr 01/11/22 19:30 01/11/22 22:12 Dextrose IV 01/12/22 12:17 62.5 mls/hr ONCE ONE Administration Morphine Sulfate 2 mg 01/11/22 14:41 Morphine 2 Mg/1 Ml Inj IV Q12H PRN Pain, Moderate (4-6) Ondansetron HCl 4 mg 01/11/22 22:21 01/12/22 02:42 Ondansetron 4 Mg/2 Ml Inj IV 4 mg Q8H PRN Administration Nausea And Vomiting Sodium Chloride 10 ml 01/11/22 22:00 01/11/22 22:12 Sodium Chloride 0.9% 10 Ml Flush Syringe IV 10 ml BID RIC Administration Sodium Chloride 10 ml 01/11/22 14:41 Sodium Chloride 0.9% 10 Ml Flush Syringe IV PRN PRN LINE FLUSH
[2022-01-12 14:36] LABS: Albumin 3.1 g/dL (3.9-5)
--- NOTE | 2022-01-12 14:47 | Consultation ---
History of Present Illness - Reason for Consult Consult date: 01/12/22 Reason for consult: Overdose - History of Present Psychiatric Illness The patient was seen today. She presented to the ER for tylenol overdose of 40 pill of 500mg tabs. The patient states her side was hurting so she "kept taking them and didn't stop." Although the patient denies attempting to end her life, I question this being that she took so many pills. She says "I just wasn't thinking so I kept taking them. My side was hurting." The patient also seems delusional. She denies a history of anything other than depression. She says she doesn't see a psychiatrist because she doesn't like the way they talk to her. She also says she doesn't want any medications because the last one she was on m aftab her more depressed. The patient says she had one suicide attempt in the past. When I asked the patient when was it, and what was her means of attempting suicide, she refused to answer. She says "do I really have to answer these questions." The patient denies hallucinations. She says never in my life. Diagnoses: Depression Suicide attempts or Self-harm behavior: Yes Prior psychiatric hospitalizations: Yes Substance Abuse history: Denies Previous psychiatric medications tried: could not recall Outpatient treatment: Denies PAST MEDICAL HISTORY: unknown Family Psychiatric History: None reported or documented SOCIAL HISTORY Marital Status: Single Living Arrangements: alone Employment Status: unemployed Access to guns/weapons: Denies Education: History of Abuse: none reported Legal History: none reported REVIEW OF SYSTEMS Constitutional: Negative for weight loss ENT: Negative for stridor Respiratory: Negative for cough or hemoptysis All other systems reviewed and are negative MENTAL STATUS EXAMINATION General Appearance and Behavior: Age appropriate, good hygiene, wearing appropriate clothes, calm, cooperative Cooperation: Participating, guarded Psychomotor Behavior: Tremors Mood: okay Affect and affective range: congruent with mood Thought Process: illogical Thought Content: Delusional Speech: Normal volume, Regular rate and rhythm, Suicidal Ideation: Denies Homicidal Ideation: Denies Hallucinations: Denies Delusions: Yes Impulse Control: impaired Insight and Judgment: Limited insight and judgment, Memory: Limited Attention: Normal Orientation: Alert, oriented Assessment and Plan (1) Acetaminophen Overdose (2) Major Depressive Disorder Treatment Plan 1013 Abilify 5mg po daily Remeron 15mg po qhs Medical: per primary Disposition: Recommend acute psychiatric inpatient treatment Will follow. Thanks Case staffed with Dr. Cox Medications and Allergies Allergies Allergy/AdvReac Type Severity Reaction Status Date / Time aspirin Allergy Unknown Verified 01/11/22 12:34 NSAIDS (Non-Steroidal Allergy Unknown Verified 01/11/22 12:34 Anti-Inflamma Penicillins Allergy Anaphylaxis Verified 01/11/22 12:34 Home Medications Medication Instructions Recorded Confirmed Last Taken Type Acetaminophen [Acetaminophen TAB] 325 mg PO Q4H PRN #6 tablet 03/06/20 Unknown Rx Metoprolol [Lopressor TAB] 100 mg PO BID #60 tablet 03/06/20 Unknown Rx Sertraline [Zoloft] 50 mg PO QDAY #30 tablet 03/06/20 Unknown Rx amLODIPine 10 mg PO QDAY #30 tablet 03/06/20 Unknown Rx buPROPion [Wellbutrin] 100 mg PO BID #60 tablet 03/06/20 Unknown Rx Active Meds: Active Medications Albuterol (Albuterol 2.5 Mg/3 Ml Nebu) 2.5 mg IH Q3HRT PRN PRN Reason: Shortness Of Breath Hydromorphone HCl (Hydromorphone 1 Mg/1 Ml Inj) 0.5 mg IV Q23H PRN PRN Reason: Pain , Severe (7-10) Acetylcysteine 10,000 mg/ (Dextrose) 1,050 mls @ 62.5 mls/hr IV DIRECT RIC Morphine Sulfate (Morphine 2 Mg/1 Ml Inj) 2 mg IV Q12H PRN PRN Reason: Pain, Moderate (4-6) Ondansetron HCl (Ondansetron 4 Mg/2 Ml Inj) 4 mg IV Q8H PRN PRN Reason: Nausea And Vomiting Last Admin: 01/12/22 02:42 Dose: 4 mg Sodium Chloride (Sodium Chloride 0.9% 10 Ml Flush Syringe) 10 ml IV BID RIC Last Admin: 01/11/22 22:12 Dose: 10 ml Sodium Chloride (Sodium Chloride 0.9% 10 Ml Flush Syringe) 10 ml IV PRN PRN PRN Reason: LINE FLUSH Mental Status Exam - Vital signs Last Vital Signs Temp 98.5 F 01/11/22 21:12 Pulse 111 H 01/12/22 13:00 Resp 23 01/12/22 13:00 BP 112/67 01/12/22 13:00 Pulse Ox 98 01/12/22 12:00 Results Result Diagrams: 01/11/22 12:48 01/12/22 14:00 Abnormal lab results 01/11/22 01/11/22 01/12/22 Range/Units 12:48 14:15 07:15 Seg Neuts % (Manual) 92.0 H (40.0-70.0) % Lymphocytes % (Manual) 2.0 L (13.4-35.0) % Seg Neutrophils # Man 12.5 H (1.8-7.7) K/mm3 Lymphocytes # (Manual) 0.3 L (1.2-5.4) K/mm3 PT 17.8 H (12.2-14.9) Sec. INR 1.31 H (0.87-1.13) Carbon Dioxide 17 L (22-30) mmol/L Creatinine 2.0 H (0.6-1.2) mg/dL Glucose 135 H (65-100) mg/dL Total Bilirubin (0.1-1.2) mg/dL AST 1327 H (5-40) units/L ALT 1480 H (7-56) units/L Albumin 3.5 L (3.9-5) g/dL Acetaminophen (10.0-30.0) ug/mL 01/12/22 01/12/22 01/12/22 Range/Units 07:15 10:32 14:00 Seg Neuts % (Manual) (40.0-70.0) % Lymphocytes % (Manual) (13.4-35.0) % Seg Neutrophils # Man (1.8-7.7) K/mm3 Lymphocytes # (Manual) (1.2-5.4) K/mm3 PT 27.2 H (12.2-14.9) Sec. INR 2.19 H (0.87-1.13) Carbon Dioxide 17 L (22-30) mmol/L Creatinine 2.3 H (0.6-1.2) mg/dL Glucose 156 H (65-100) mg/dL Total Bilirubin 1.30 H (0.1-1.2) mg/dL AST (5-40) units/L ALT (7-56) units/L Albumin 3.1 L (3.9-5) g/dL Acetaminophen 5.0 L (10.0-30.0) ug/mL All other labs normal.
[2022-01-12] MEDS: ACETADOTE(ACETYLCYSTEINE IV) 10,000 MG in DEXTROSE 5% IN WATER 1,000 ML IV SCH (16:23)
--- NOTE | 2022-01-12 17:25 | Gastroenterology Consultation ---
History of Present Illness - Reason for Consult Consult date: 01/12/22 Tylenol OD Requesting physician: LORENE FINCH - History of Present Illness The patient is a 41 yo female with a known psychiatric history who presented after taking 50 tylenol tablets in a suicide attempt. She has no prior attempt by her report. She was stated on Acetadote immediately, and surveillance tylenol levle is down to normal/low lelvels. She has had diffuse cramping abdominal pain today, along with constipation and onbloody emesis. She has no hx of underlying liver disease, and denies EtOH abuse. She has no family hx of liver disease and the patient denies prior hepatitis contact. Past History Past Medical History: other (Obesity, severe depression, hx of suicidal thoughts) Past Surgical History: No surgical history, Other (Reviewed) Social history: single. denies: smoking, alcohol abuse, prescription drug abuse Family history: diabetes, hypertension Medications and Allergies Allergies Allergy/AdvReac Type Severity Reaction Status Date / Time aspirin Allergy Unknown Verified 01/11/22 12:34 NSAIDS (Non-Steroidal Allergy Unknown Verified 01/11/22 12:34 Anti-Inflamma Penicillins Allergy Anaphylaxis Verified 01/11/22 12:34 Home Medications Medication Instructions Recorded Confirmed Last Taken Type Acetaminophen [Acetaminophen TAB] 325 mg PO Q4H PRN #6 tablet 03/06/20 Unknown Rx Metoprolol [Lopressor TAB] 100 mg PO BID #60 tablet 03/06/20 Unknown Rx Sertraline [Zoloft] 50 mg PO QDAY #30 tablet 03/06/20 Unknown Rx amLODIPine 10 mg PO QDAY #30 tablet 03/06/20 Unknown Rx buPROPion [Wellbutrin] 100 mg PO BID #60 tablet 03/06/20 Unknown Rx Active Meds: Active Medications Albuterol (Albuterol 2.5 Mg/3 Ml Nebu) 2.5 mg IH Q3HRT PRN PRN Reason: Shortness Of Breath Aripiprazole (Aripiprazole 5 Mg Tab) 5 mg PO QDAY RIC Hydromorphone HCl (Hydromorphone 1 Mg/1 Ml Inj) 0.5 mg IV Q23H PRN PRN Reason: Pain , Severe (7-10) Acetylcysteine 10,000 mg/ (Dextrose) 1,050 mls @ 62.5 mls/hr IV DIRECT RIC Last Admin: 01/12/22 16:23 Dose: 62.5 mls/hr Mirtazapine (Mirtazapine 15 Mg Tab) 15 mg PO QHS [facility] Morphine Sulfate (Morphine 2 Mg/1 Ml Inj) 2 mg IV Q12H PRN PRN Reason: Pain, Moderate (4-6) Multivitamins (Multivitamins ,Therapeutic Tab) 1 each PO QDAY [facility] Ondansetron HCl (Ondansetron 4 Mg/2 Ml Inj) 4 mg IV Q8H PRN PRN Reason: Nausea And Vomiting Last Admin: 01/12/22 15:11 Dose: 4 mg Sodium Chloride (Sodium Chloride 0.9% 10 Ml Flush Syringe) 10 ml IV BID [facility] Last Admin: 01/12/22 15:10 Dose: 10 ml Sodium Chloride (Sodium Chloride 0.9% 10 Ml Flush Syringe) 10 ml IV PRN PRN PRN Reason: LINE FLUSH I HAVE REVIEWED/RECONCILED MEDCIATIONS Review of Systems - Review of Systems All systems: negative (as noted in the HPI) Exam - Constitutional Vital Signs: Temp Pulse Resp BP Pulse Ox 98.5 F 97 H 22 101/59 97 01/11/22 21:12 01/12/22 16:00 01/12/22 16:00 01/12/22 16:00 01/12/22 16:00 General appearance: no acute distress - EENT Eyes: PERRL, EOM intact ENT: hearing intact, clear oral mucosa - Neck Neck: supple, normal ROM - Respiratory Respiratory effort: normal Respiratory: bilateral: CTA - Cardiovascular Rhythm: regular Heart Sounds: Present: S1 & S2 Extremities: no ischemia, No edema - Gastrointestinal General gastrointestinal: Present: soft, tender (No guard or peritoneal signs), distended - Genitourinary Female Genitourinary: deferred - Integumentary Integumentary: Present: clear, warm, dry - Neurologic Neurological: alert and oriented x3 - Psychiatric Psychiatric: appropriate mood/affect - Labs CBC & Chem 7: 01/11/22 12:48 01/12/22 20:17 Lab Results: Laboratory Results - last 24 hr 01/11/22 01/11/22 01/12/22 Unknown Unknown 07:15 PT INR Sodium 137 Potassium 4.2 Chloride 105.3 Carbon Dioxide 17 L Anion Gap 19 BUN 15 Creatinine 2.0 H Estimated GFR 33 BUN/Creatinine Ratio 8 Glucose 135 H Calcium 9.0 Total Bilirubin 1.20 AST 1327 H ALT 1480 H Alkaline Phosphatase 99 Total Protein 6.5 D Albumin 3.5 L Albumin/Globulin Ratio 1.2 Urine Color Straw Urine Turbidity Clear Urine pH 5.0 Ur Specific [place] 1.012 Urine Protein 100 mg/dl Urine Glucose (UA) Neg Urine Ketones 20 Urine Blood Neg Urine Nitrite Neg Ur Reducing Substances Not Reportable Urine Bilirubin Neg Urine Ictotest Not Reportable Urine Urobilinogen < 2.0 Ur Leukocyte Esterase Neg Urine WBC (Auto) < 1.0 Urine RBC (Auto) 1.0 U Epithel Cells (Auto) < 1.0 Urine HCG, Qual Negative Urine Opiates Screen Negative Urine Methadone Screen Negative Acetaminophen Ur Barbiturates Screen Negative Ur Phencyclidine Scrn Negative Ur Amphetamines Screen Negative U Benzodiazepines Scrn Negative Urine Cocaine Screen Negative U Marijuana (THC) Screen Negative Drugs of Abuse Note Disclamer Coronavirus (PCR) 01/12/22 01/12/22 01/12/22 07:15 08:25 10:32 PT 27.2 H INR 2.19 H Sodium Potassium Chloride Carbon Dioxide Anion Gap BUN Creatinine Estimated GFR BUN/Creatinine Ratio Glucose Calcium Total Bilirubin AST ALT Alkaline Phosphatase Total Protein Albumin Albumin/Globulin Ratio Urine Color Urine Turbidity Urine pH Ur Specific [place] Urine Protein Urine Glucose (UA) Urine Ketones Urine Blood Urine Nitrite Ur Reducing Substances Urine Bilirubin Urine Ictotest Urine Urobilinogen Ur Leukocyte Esterase Urine WBC (Auto) Urine RBC (Auto) U Epithel Cells (Auto) Urine HCG, Qual Urine Opiates Screen Urine Methadone Screen Acetaminophen 5.0 L Ur Barbiturates Screen Ur Phencyclidine Scrn Ur Amphetamines Screen U Benzodiazepines Scrn Urine Cocaine Screen U Marijuana (THC) Screen Drugs of Abuse Note Coronavirus (PCR) Negative 01/12/22 14:00 PT INR Sodium 137 Potassium 3.8 Chloride 104.2 Carbon Dioxide 17 L Anion Gap 20 BUN 16 Creatinine 2.3 H Estimated GFR 28 BUN/Creatinine Ratio 7 Glucose 156 H Calcium 9.0 Total Bilirubin 1.30 H AST 3031 H ALT 3139 H Alkaline Phosphatase 104 Total Protein 6.5 Albumin 3.1 L Albumin/Globulin Ratio 0.9 Urine Color Urine Turbidity Urine pH Ur Specific [place] Urine Protein Urine Glucose (UA) Urine Ketones Urine Blood Urine Nitrite Ur Reducing Substances Urine Bilirubin Urine Ictotest Urine Urobilinogen Ur Leukocyte Esterase Urine WBC (Auto) Urine RBC (Auto) U Epithel Cells (Auto) Urine HCG, Qual Urine Opiates Screen Urine Methadone Screen Acetaminophen Ur Barbiturates Screen Ur Phencyclidine Scrn Ur Amphetamines Screen U Benzodiazepines Scrn Urine Cocaine Screen U Marijuana (THC) Screen Drugs of Abuse Note Coronavirus (PCR) Assessment and Plan - Patient Problems (1) Suicide attempt by drug overdose Current Visit: No Status: Acute Plan to address problem: - Acetadote given and ptient appropriately triaged to the ICU. - Currently no bleeding, encephalopathy, or peritonitis. - Will continue to trend labs, adam transaminases and INR to see if she needs advanced level of care, though suicide attempt and gestures, morbid obesity, and lack of insurance would make liver transplant evaluation difficult.
[2022-01-12] MEDS: ARIPiprazole 5 MG TAB PO SCH (18:29)
[2022-01-12] MEDS ORDERED: SODIUM CHLORIDE 0.9% 1000 ML 1,000 ML ONE (18:40)
[2022-01-12] MEDS ORDERED: SODIUM CHLORIDE 0.9% 1000 ML 1,000 ML IV ONE (19:49)
[2022-01-12 21:26] LABS: Calcium 8.5 mg/dL (8.4-10.2)
[2022-01-12] MEDS: MIRTAZAPINE 15 MG TAB PO SCH (22:32)
[2022-01-13] MEDS ORDERED: ACETADOTE IV ONE (07:00)
[2022-01-13] MEDS ORDERED: WATER IV ONE (07:00)
[2022-01-13] MEDS ORDERED: DEXTROSE 5% IV ONE (07:00)
--- NOTE | 2022-01-13 07:11 | Progress Note ---
Assessment and Plan Assessment and plan: 41 YO Female with Obesity Hypoventilation Syndrome, HTN, MDD, Paranoid Schizophrenia, Prior Suicide Attempt with medication overdose presents to ED for evaluation. Patient exhibits tangential thinking and is unable to provide detailed history. Patient history taken from EMS staff, ED staff, as well as the patient's sister who accompanied the patient to the emergency department. Patient sister reports that the patient took approximately 40 tablets of Tylenol 500 mg over the past 1 day in an effort to relieve pain as well as an attempt to take her own life. Patient transported [facility] via private vehicle for further care and evaluation of the aforementioned symptoms. The patient was seen and evalu ated in the emergency department. All lab and imaging studies reviewed. Patient found to have acute kidney injury, systemic plantar response syndrome, as well as suicide attempt complicated by psychotic break. [address] Mental health team consulted in ED. Poison control notified. Patient treated with Acetadote as per poison control protocol. Patient admitted to IMCU due to increased risk of worsening symptoms. Patient exhibits tangential thinking at time of evaluation but has a positive gag reflex and is able to protect her airway without difficulty. No reports of fever, chills, chest pain, palpitation or productive cough, skin rash, recent contact, or known exposure to COVID-19. Prior admission for 02/28/20 reviewed. All medication listed at time of admission has been reconciled. Advanced care planning conducted in ED. 3/2: Continue current management. LFTs still significantly elevated actually going up discussed with pharmacist but the recommendation Acetadote will be restarted. We will monitor LFTs every 8 hours. Will contact poison control if worsening findings are noted. Patient with no evidence of metabolic encephalopathy at this time. Psych has been consulted. Continue 1013 01/13: Inpatient psych hospitalization as recommended by psych team when clini katiuska improved. In the meantime patient showing some improvement in AST, ALTHOUGH ALT and INR slightly worse, discussed with GI specialist, will continue to monitor. Was restarted on Acetadote yesterday. We will continue to monitor LFTs every 8 hours. Patient reports history of sickle cell disease for which she is on chronic opioid medication including MS Contin. I have not been able to verify this. Patient also has a worsening coagulopathy with increasing INR ideally should be transferred but I am not quite sure. Will stop fluids once patient able to tolerate ORAL FLUIDS. Prognosis: remains guarded (1) Suicide attempt by drug overdose Current Visit: No Status: Acute Plan to address problem: Tylenol overdose: Patient treated with Acetadote. Poison control notified. IV fluid resuscitation therapy, supportive care. Avoid hepatotoxic agents. (2) SIRS (systemic inflammatory response syndrome) Current Visit: Yes Status: Acute Plan to address problem: Supportive care, CBC, repeat CBC in a.m. No source of infection found at this time. (3) RAUL (acute kidney injury) Current Visit: No Status: Acute Plan to address problem: IV fluid resuscitation therapy, BMP, repeat BMP in a.m. to monitor serum creatinine as well as GFR. Monitor fluid balance. (4) Paranoid schizophrenia Current Visit: No Status: Acute Plan to address problem: Mental health team consulted, continue medical management, supportive care. (5) morbidly obese (6) Secondary coagulopathy (7) Hyperbliribunemia (8) DVT prophylaxis Current Visit: No Status: Acute Plan to address problem: SCD to bilateral lower extremities while in bed (9) Advance care planning Current Visit: Yes Status: Acute Plan to address problem: Disease education conducted, care plan discussed, diagnoses discussed, prognosis discussed, patient is full code. Patient family knowledge understanding and agreed with care plan, +30 minutes. History Interval history: Patient seen and examined this morning no new nausea vomiting. She is requesting her pain medications for her underlying sickle cell. Hospitalist Physical - Physical exam Narrative exam: VITAL SIGNS: Reviewed. GENERAL: The patient appears normally developed, morbidly obese, vital signs as documented. HEAD: No signs of head trauma. EYES: Pupils are equal. Extraocular motions intact. EARS: Hearing grossly intact. MOUTH: Oropharynx is normal. NECK: No adenopathy, no JVD. CHEST: Chest with clear breath sounds bilaterally. No wheezes, rales, or rhonc hi. CARDIAC: Regular rate and rhythm. S1 and S2, without murmurs, gallops, or rubs. VASCULAR: No Edema. Peripheral pulses normal and equal in all extremities. ABDOMEN: Soft, non tender and non distended. No rebound or guarding, and no masses palpated. Bowel Sounds normal. MUSCULOSKELETAL: Good range of motion of all major joints. Extremities without clubbing, cyanosis or edema. NEUROLOGIC EXAM: Alert and oriented x 3 No focal sensory or strength deficits. Speech normal. Follows commands. PSYCHIATRIC: Mood normal. SKIN: detail exam as documented in skin assessment - Constitutional Vitals: Temp Pulse Resp BP Pulse Ox 100.1 F H 115 H 20 129/85 94 01/13/22 06:47 01/13/22 06:00 01/13/22 06:00 01/13/22 06:00 01/13/22 06:00 General appearance: Present: mild distress Results - Labs CBC & Chem 7: 01/11/22 12:48 01/13/22 08:16 Labs: Laboratory Last Values WBC 13.6 K/mm3 (4.5-11.0) H 01/11/22 12:48 RBC 4.86 M/mm3 (3.65-5.03) 01/11/22 12:48 Hgb 11.3 gm/dl (10.1-14.3) 01/11/22 12:48 Hct 37.8 % (30.3-42.9) 01/11/22 12:48 MCV 78 fl (79-97) L 01/11/22 12:48 MCH 23 pg (28-32) L 01/11/22 12:48 MCHC 30 % (30-34) 01/11/22 12:48 RDW 26.9 % (13.2-15.2) H 01/11/22 12:48 Plt Count 207 K/mm3 (140-440) 01/11/22 12:48 [place] % (Auto) Desk Assistant 01/11/22 12:48 Eos % (Auto) Desk Assistant 01/11/22 12:48 [place] # (Auto) Desk Assistant 01/11/22 12:48 Eos # (Auto) Desk Assistant 01/11/22 12:48 Baso # (Auto) Desk Assistant 01/11/22 12:48 Add Manual Diff Complete 01/11/22 12:48 Total Counted 100 01/11/22 12:48 Seg Neuts % (Manual) 92.0 % (40.0-70.0) H 01/11/22 12:48 Band Neutrophils % 1.0 % 01/11/22 12:48 Lymphocytes % (Manual) 2.0 % (13.4-35.0) L 01/11/22 12:48 Reactive Lymphs % (Man) 0 % 01/11/22 12:48 Monocytes % (Manual) 5.0 % (0.0-7.3) 01/11/22 12:48 Eosinophils % (Manual) 0 % (0.0-4.3) 01/11/22 12:48 Basophils % (Manual) 0 % (0.0-1.8) 01/11/22 12:48 Metamyelocytes % 0 % 01/11/22 12:48 Myelocytes % 0 % 01/11/22 12:48 Promyelocytes % 0 % 01/11/22 12:48 Blast Cells % 0 % 01/11/22 12:48 Nucleated RBC % Not Reportable 01/11/22 12:48 Seg Neutrophils # Desk Assistant 01/11/22 12:48 Seg Neutrophils # Man 12.5 K/mm3 (1.8-7.7) H 01/11/22 12:48 Band Neutrophils # 0.1 K/mm3 01/11/22 12:48 Lymphocytes # (Manual) 0.3 K/mm3 (1.2-5.4) L 01/11/22 12:48 Abs React Lymphs (Man) 0.0 K/mm3 01/11/22 12:48 Monocytes # (Manual) 0.7 K/mm3 (0.0-0.8) 01/11/22 12:48 Eosinophils # (Manual) 0.0 K/mm3 (0.0-0.4) 01/11/22 12:48 Basophils # (Manual) 0.0 K/mm3 (0.0-0.1) 01/11/22 12:48 Metamyelocytes # 0.0 K/mm3 01/11/22 12:48 Myelocytes # 0.0 K/mm3 01/11/22 12:48 Promyelocytes # 0.0 K/mm3 01/11/22 12:48 Blast Cells # 0.0 K/mm3 01/11/22 12:48 WBC Morphology Not Reportable 01/11/22 12:48 Hypersegmented Neuts Not Reportable 01/11/22 12:48 Hyposegmented Neuts Not Reportable 01/11/22 12:48 Hypogranular Neuts Not Reportable 01/11/22 12:48 Smudge Cells Not Reportable 01/11/22 12:48 Toxic Granulation Not Reportable 01/11/22 12:48 Toxic Vacuolation Not Reportable 01/11/22 12:48 Dohle Bodies Not Reportable 01/11/22 12:48 Pelger-Huet Anomaly Not Reportable 01/11/22 12:48 Celine Rods Not Reportable 01/11/22 12:48 Platelet Estimate Consistent w auto 01/11/22 12:48 Clumped Platelets Not Reportable 01/11/22 12:48 Plt Clumps, EDTA Not Reportable 01/11/22 12:48 Large Platelets Not Reportable 01/11/22 12:48 Giant Platelets Not Reportable 01/11/22 12:48 Platelet Satelliting Not Reportable 01/11/22 12:48 Plt Morphology Comment Not Reportable 01/11/22 12:48 RBC Morphology Not Reportable 01/11/22 12:48 Dimorphic RBCs Not Reportable 01/11/22 12:48 Polychromasia Not Reportable 01/11/22 12:48 Hypochromasia 1+ 01/11/22 12:48 Poikilocytosis Not Reportable 01/11/22 12:48 Anisocytosis 2+ 01/11/22 12:48 Microcytosis Not Reportable 01/11/22 12:48 Macrocytosis Not Reportable 01/11/22 12:48 Spherocytes Not Reportable 01/11/22 12:48 Pappenheimer Bodies Not Reportable 01/11/22 12:48 Sickle Cells Not Reportable 01/11/22 12:48 Target Cells Not Reportable 01/11/22 12:48 Tear Drop Cells Not Reportable 01/11/22 12:48 Ovalocytes Not Reportable 01/11/22 12:48 Helmet Cells Not Reportable 01/11/22 12:48 [place] Bodies Not Reportable 01/11/22 12:48 Spout [place] Rings Not Reportable 01/11/22 12:48 [place] Cells Not Reportable 01/11/22 12:48 Bite Cells Not Reportable 01/11/22 12:48 Crenated Cell Not Reportable 01/11/22 12:48 Elliptocytes Not Reportable 01/11/22 12:48 Acanthocytes (Spur) Not Reportable 01/11/22 12:48 Rouleaux Not Reportable 01/11/22 12:48 Hemoglobin C Crystals Not Reportable 01/11/22 12:48 Schistocytes Not Reportable 01/11/22 12:48 Malaria parasites Not Reportable 01/11/22 12:48 Evans Bodies Not Reportable 01/11/22 12:48 Hem Pathologist Commnt No 01/11/22 12:48 PT 27.2 Sec. (12.2-14.9) H 01/12/22 07:15 INR 2.19 (0.87-1.13) H 01/12/22 07:15 Sodium 141 mmol/L (137-145) 01/12/22 20:17 Potassium 4.1 mmol/L (3.6-5.0) 01/12/22 20:17 Chloride 107.4 mmol/L (98-107) H 01/12/22 20:17 Carbon Dioxide 17 mmol/L (22-30) L 01/12/22 20:17 Anion Gap 21 mmol/L 01/12/22 20:17 BUN 18 mg/dL (7-17) H 01/12/22 20:17 Creatinine 2.8 mg/dL (0.6-1.2) H 01/12/22 20:17 Estimated GFR 22 ml/min 01/12/22 20:17 BUN/Creatinine Ratio 6 % 01/12/22 20:17 Glucose 138 mg/dL (65-100) H 01/12/22 20:17 Calcium 8.5 mg/dL (8.4-10.2) 01/12/22 20:17 Magnesium 2.20 mg/dL (1.7-2.3) 01/11/22 12:48 Total Bilirubin 1.50 mg/dL (0.1-1.2) H 01/12/22 20:17 AST 5708 units/L (5-40) H 01/12/22 20:17 ALT 5683 units/L (7-56) H 01/12/22 20:17 Alkaline Phosphatase 105 units/L (35-129) 01/12/22 20:17 Total Protein 6.4 g/dL (6.3-8.2) 01/12/22 20:17 Albumin 3.0 g/dL (3.9-5) L 01/12/22 20:17 Albumin/Globulin Ratio 0.9 % 01/12/22 20:17 Urine Color Straw (Yellow) 01/11/22 Unknown Urine Turbidity Clear (Clear) 01/11/22 Unknown Urine pH 5.0 (5.0-7.0) 01/11/22 Unknown Ur Specific [place] 1.012 (1.003-1.030) 01/11/22 Unknown Urine Protein 100 mg/dl mg/dL (Negative) 01/11/22 Unknown Urine Glucose (UA) Neg mg/dL (Negative) 01/11/22 Unknown Urine Ketones 20 mg/dL (Negative) 01/11/22 Unknown Urine Blood Neg (Negative) 01/11/22 Unknown Urine Nitrite Neg (Negative) 01/11/22 Unknown Ur Reducing Substances Not Reportable 01/11/22 Unknown Urine Bilirubin Neg (Negative) 01/11/22 Unknown Urine Ictotest Not Reportable 01/11/22 Unknown Urine Urobilinogen < 2.0 mg/dL (<2.0) 01/11/22 Unknown Ur Leukocyte Esterase Neg (Negative) 01/11/22 Unknown Urine WBC (Auto) < 1.0 /HPF (0.0-6.0) 01/11/22 Unknown Urine RBC (Auto) 1.0 /HPF (0.0-6.0) 01/11/22 Unknown U Epithel Cells (Auto) < 1.0 /HPF (0-13.0) 01/11/22 Unknown Urine HCG, Qual Negative (Negative) 01/11/22 Unknown Salicylates < 0.3 mg/dL (2.8-20.0) L 01/11/22 12:48 Urine Opiates Screen Negative 01/11/22 Unknown Urine Methadone Screen Negative 01/11/22 Unknown Acetaminophen 5.0 ug/mL (10.0-30.0) L 01/12/22 10:32 Ur Barbiturates Screen Negative 01/11/22 Unknown Ur Phencyclidine Scrn Negative 01/11/22 Unknown Ur Amphetamines Screen Negative 01/11/22 Unknown U Benzodiazepines Scrn Negative 01/11/22 Unknown Urine Cocaine Screen Negative 01/11/22 Unknown U Marijuana (THC) Screen Negative 01/11/22 Unknown Drugs of Abuse Note Disclamer 01/11/22 Unknown Plasma/Serum Alcohol < 0.01 % (0-0.07) 01/11/22 12:48 Coronavirus (PCR) Negative (Negative) 01/12/22 08:25 [place]ino/IV: Voiding Method Bedside Commode Active Medications - Current Medications Current Medications: Generic Name Dose Route Start Last Admin Trade Name Freq PRN Reason Stop Dose Admin Albuterol 2.5 mg 01/11/22 14:41 Albuterol 2.5 Mg/3 Ml Nebu IH Q3HRT PRN Shortness Of Breath Aripiprazole 5 mg 01/12/22 18:00 01/12/22 18:29 Aripiprazole 5 Mg Tab PO Not Given QDAY RIC Hydromorphone HCl 0.5 mg 01/11/22 14:41 Hydromorphone 1 Mg/1 Ml Inj IV Q23H PRN Pain , Severe (7-10) Acetylcysteine 10,000 mg/ 1,050 mls @ 62.5 mls/hr 01/12/22 14:00 01/12/22 16:23 Dextrose IV 62.5 mls/hr DIRECT RIC Administration Acetylcysteine 6,000 mg/ 630 mls @ 62.5 mls/hr 01/13/22 07:00 Dextrose IV 01/13/22 17:04 ONCE ONE Mirtazapine 15 mg 01/12/22 22:00 01/12/22 22:32 Mirtazapine 15 Mg Tab PO Not Given QHS RIC Morphine Sulfate 2 mg 01/11/22 14:41 Morphine 2 Mg/1 Ml Inj IV Q12H PRN Pain, Moderate (4-6) Multivitamins 1 each 01/13/22 10:00 Multivitamins ,Therapeutic Tab PO QDAY [facility] Ondansetron HCl 4 mg 01/11/22 22:21 01/12/22 22:59 Ondansetron 4 Mg/2 Ml Inj IV 4 mg Q8H PRN Administration Nausea And Vomiting Sodium Chloride 10 ml 01/11/22 22:00 01/12/22 22:35 Sodium Chloride 0.9% 10 Ml Flush Syringe IV 10 ml BID RIC Administration Sodium Chloride 10 ml 01/11/22 14:41 Sodium Chloride 0.9% 10 Ml Flush Syringe IV PRN PRN LINE FLUSH
[2022-01-13 09:18] LABS: Albumin 3.1 g/dL (3.9-5); Calcium 8.7 mg/dL (8.4-10.2)
[2022-01-13 09:24] LABS: INR 3.22 (0.87-1.13)
--- NOTE | 2022-01-13 11:22 | Progress Note ---
Subjective - Reason for Consult Consult date: 01/13/22 Reason for consult: suicide attempt - Chief Complaint Chief complaint: The patient was seen today. She appears withdrawn and looks depressed. She denies both, but states she is "just nauseated." The patient again denies attempting suicide. I ask her again why she felt the need to take as many pills as she did, she says "I already told you that yesterday." REVIEW OF SYSTEMS Constitutional: Negative for weight loss ENT: Negative for stridor Respiratory: Negative for cough or hemoptysis All other systems reviewed and are negative MENTAL STATUS EXAMINATION General Appearance and Behavior: Age appropriate, good hygiene, wearing appropriate clothes, calm, cooperative Cooperation: Participating, guarded Psychomotor Behavior: Tremors Mood: okay Affect and affective range: congruent with mood Thought Process: illogical Thought Content: Delusional Speech: Normal volume, Regular rate and rhythm, Suicidal Ideation: Denies Homicidal Ideation: Denies Hallucinations: Denies Delusions: Yes Impulse Control: impaired Insight and Judgment: Limited insight and judgment, Memory: Limited Attention: Normal Orientation: Alert, oriented Assessment and Plan (1) Acetaminophen Overdose (2) Major Depressive Disorder Treatment Plan 1013 Abilify 5mg po daily Remeron 15mg po qhs Zoloft 25mg po daily Medical: per primary Disposition: Recommend acute psychiatric inpatient treatment Will follow. Thanks Case staffed with Dr. Cox Mental Status Exam - Vital signs Last Vital Signs Temp 99.8 F H 01/13/22 08:00 Pulse 122 H 01/13/22 09:00 Resp 24 01/13/22 09:00 BP 129/82 01/13/22 09:00 Pulse Ox 96 01/13/22 09:00
--- NOTE | 2022-01-13 13:10 | Electrocardiograph Report ---
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
[2022-01-13] MEDS: ARIPiprazole 5 MG TAB PO SCH (13:55)
[2022-01-13] MEDS: MULTIVITAMINS ,THERAPEUTIC TAB PO SCH (13:55)
[2022-01-13] MEDS: SERTRALINE 25 MG TAB PO SCH (13:58)
--- NOTE | 2022-01-13 14:13 | Gastroenterology Progress Note ---
Assessment and Plan - Patient Problems (1) Suicide attempt by drug overdose Current Visit: No Status: Acute Plan to address problem: - Acetadote given and patient appropriately triaged to the ICU. - Currently no bleeding, encephalopathy, or peritonitis. Is having persistent N/V with RAUL. - Will continue to trend labs, adam transaminases and INR to see if she needs advanced level of care, though suicide attempt and gestures, morbid obesity, and lack of insurance would make liver transplant evaluation difficult. - AST today markedly improved, and CO2 also improved (less acidosis). Will resume NS for 2 liters given poor PO intake, and give vitamin K. Subjective Date of service: 01/13/22 Principal diagnosis: Tylenol Overdose Interval history: The patient's mental status has been stable without somnolence or altered mentation. Still very depressed, and vomiting with all meals. No CP or SOB. Objective - Constitutional Vitals: Temp Pulse Resp BP Pulse Ox 99.8 F H 110 H 20 130/76 97 01/13/22 08:00 01/13/22 12:00 01/13/22 12:00 01/13/22 13:00 01/13/22 13:00 General appearance: no acute distress, obese - Respiratory Respiratory effort: normal Respiratory: bilateral: CTA - Cardiovascular Rhythm: regular Heart Sounds: Present: S1 & S2 - Gastrointestinal General gastrointestinal: Present: soft, non-tender, non-distended - Neurologic Neurological: alert and oriented x3 (No asterixis) - Labs CBC & Chem 7: 01/11/22 12:48 01/13/22 08:16 Labs: Laboratory Results - last 24 hr 01/12/22 01/12/22 01/12/22 08:25 14:00 20:17 PT INR Sodium 137 141 Potassium 3.8 4.1 Chloride 104.2 107.4 H Carbon Dioxide 17 L 17 L Anion Gap 20 21 BUN 16 18 H Creatinine 2.3 H 2.8 H Estimated GFR 28 22 BUN/Creatinine Ratio 7 6 Glucose 156 H 138 H Calcium 9.0 8.5 Total Bilirubin 1.30 H 1.50 H AST 3031 H 5708 H ALT 3139 H 5683 H Alkaline Phosphatase 104 105 Total Protein 6.5 6.4 Albumin 3.1 L 3.0 L Albumin/Globulin Ratio 0.9 0.9 Coronavirus (PCR) Negative 01/13/22 01/13/22 08:16 08:16 PT 37.3 H INR 3.22 H Sodium 142 Potassium 3.9 Chloride 107.4 H Carbon Dioxide 19 L Anion Gap 20 BUN 25 H Creatinine 3.9 H Estimated GFR 15 BUN/Creatinine Ratio 6 Glucose 113 H Calcium 8.7 Total Bilirubin 1.30 H AST 4560 H ALT 6277 H Alkaline Phosphatase 116 Total Protein 6.0 L Albumin 3.1 L Albumin/Globulin Ratio 1.1 Coronavirus (PCR)
[2022-01-13 14:29] LABS: Blood Urea Nitrogen 26.8 mg/dL (7-17); Calcium 8.9 mg/dL (8.4-10.2)
[2022-01-13 14:30] LABS: Albumin 3.1 g/dL (3.9-5)
[2022-01-13] MEDS ORDERED: PHYTONADIONE(ADULT ONLY) 10 MG in SODIUM CHLORIDE 0.9% 50 ML IV ONE (15:00)
[2022-01-13 16:09] LABS: ABG Base Excess -6.2 mmol/L (-2.0-3.0); ABG HCO3 18.3 mmol/L (20.0-26.0); ABG Methemoglobin 0.6 % (0.0-1.5); ABG Oxygen Saturation 93.6 % (95.0-99.0); ABG PCO2 32.7 mm Hg; ABG PH 7.366 pH Units (7.350-7.450); ABG PO2 68.3 mm Hg (80.0-90.0)
[2022-01-13] MEDS: MORPHINE 2 MG/1 ML INJ IV PRN (19:56)
[2022-01-13] MEDS: ONDANSETRON 4 MG/2 ML INJ IV PRN (19:56)
[2022-01-13] MEDS: SODIUM CHLORIDE 0.9% 1000 ML 1,000 ML IV SCH (19:58)
[2022-01-13] MEDS: ACETADOTE(ACETYLCYSTEINE IV) 10,000 MG in DEXTROSE 5% IN WATER 1,000 ML IV SCH (22:49)
[2022-01-13] MEDS: MIRTAZAPINE 15 MG TAB PO SCH (22:52)
[2022-01-13 23:47] LABS: Bacteria,Urine 1+ /HPF (Negative); Bilirubin,Urine NEG (Negative); Blood,Urine LG (Negative); Color,Urine Yellow (Yellow); Creatinine,Urine 107.8 mg/dL (0.1-20.0); Mucus,Urine FEW /HPF; Urobilinogen,Urine < 2.0 mg/dL (<2.0)
[2022-01-14 01:57] LABS: Albumin 2.7 g/dL (3.9-5); Bilirubin,Direct 0.8 mg/dL (0-0.2)
[2022-01-14 01:58] LABS: Albumin 2.8 g/dL (3.9-5); Calcium 8.1 mg/dL (8.4-10.2)
[2022-01-14 05:14] LABS: Hematocrit 31.2 % (30.3-42.9); Hemoglobin 10.1 gm/dl (10.1-14.3); Mean Corpuscular HGB Conc 33 % (30-34); Mean Corpuscular Volume 76 fl (79-97); Red Blood Count 4.13 M/mm3 (3.65-5.03)
[2022-01-14 05:15] LABS: Platelet Count 99 K/mm3 (140-440); Red Cell Distribution Width 27.2 % (13.2-15.2)
[2022-01-14 05:24] LABS: INR 1.92 (0.87-1.13)
[2022-01-14 05:38] LABS: Calcium 8.3 mg/dL (8.4-10.2)
[2022-01-14] MEDS: SODIUM CHLORIDE 0.9% 1000 ML 1,000 ML IV SCH (06:04)
--- NOTE | 2022-01-14 08:42 | Consultation ---
History of Present Illness - Reason for Consult Consult date: 01/14/22 acute renal failure - History of Present Illness The patient is a 41 YO female with history of Morbid Obesity, HTN, MDD, CKD, Paranoid Schizophrenia and Prior Suicide Attempt with medication overdose who presented to [facility] ED 01/11/22 for evaluation of OD. Patient is a poor historian. Patient took approximately 40 tablets of Tylenol 500 mg over 1 day duration in an effort to relieve pain as well as an attempt to take her own life. No reports of fever, chills, chest pain, palpitation or productive cough, skin rash, recent contact, or known exposure to COVID-19. Patient is currently admitted to [facility]. BP has been low intermittently. Labs notable for Creat 4, BUN 28, bicarb 18, ALT 4056 and AST 1030. Nephrology consulted for further evaluation and treatment of RAUL. Past History Past Medical History: other (Obesity, severe depression, hx of suicidal thoughts) Past Surgical History: No surgical history, Other (Reviewed) Social history: single. denies: smoking, alcohol abuse, prescription drug abuse Family history: diabetes, hypertension Medications and Allergies Allergies Allergy/AdvReac Type Severity Reaction Status Date / Time aspirin Allergy Unknown Verified 01/11/22 12:34 NSAIDS (Non-Steroidal Allergy Unknown Verified 01/11/22 12:34 Anti-Inflamma Penicillins Allergy Anaphylaxis Verified 01/11/22 12:34 Home Medications Medication Instructions Recorded Confirmed Last Taken Type Acetaminophen [Acetaminophen TAB] 325 mg PO Q4H PRN #6 tablet 03/06/20 Unknown Rx Metoprolol [Lopressor TAB] 100 mg PO BID #60 tablet 03/06/20 Unknown Rx Sertraline [Zoloft] 50 mg PO QDAY #30 tablet 03/06/20 Unknown Rx amLODIPine 10 mg PO QDAY #30 tablet 03/06/20 Unknown Rx buPROPion [Wellbutrin] 100 mg PO BID #60 tablet 03/06/20 Unknown Rx Active Meds: Active Medications Albuterol (Albuterol 2.5 Mg/3 Ml Nebu) 2.5 mg IH Q3HRT PRN PRN Reason: Shortness Of Breath Aripiprazole (Aripiprazole 5 Mg Tab) 5 mg PO QDAY RIC Last Admin: 01/13/22 13:55 Dose: Not Given Hydromorphone HCl (Hydromorphone 1 Mg/1 Ml Inj) 0.5 mg IV Q23H PRN PRN Reason: Pain , Severe (7-10) Acetylcysteine 10,000 mg/ (Dextrose) 1,050 mls @ 62.5 mls/hr IV DIRECT [facility] Last Admin: 01/13/22 22:49 Dose: 62.5 mls/hr Sodium Chloride (Nacl 0.9% 1000 Ml) 1,000 mls @ 100 mls/hr IV DIRECT RIC Stop: 01/15/22 00:14 Last Admin: 01/14/22 06:04 Dose: 100 mls/hr Mirtazapine (Mirtazapine 15 Mg Tab) 15 mg PO QHS [facility] Last Admin: 01/13/22 22:52 Dose: Not Given Morphine Sulfate (Morphine 2 Mg/1 Ml Inj) 2 mg IV Q12H PRN PRN Reason: Pain, Moderate (4-6) Last Admin: 01/13/22 19:56 Dose: 2 mg Multivitamins (Multivitamins ,Therapeutic Tab) 1 each PO QDAY [facility] Last Admin: 01/13/22 13:55 Dose: Not Given Ondansetron HCl (Ondansetron 4 Mg/2 Ml Inj) 4 mg IV Q8H PRN PRN Reason: Nausea And Vomiting Last Admin: 01/13/22 19:56 Dose: 4 mg Sertraline HCl (Sertraline 25 Mg Tab) 25 mg PO QDAY [facility] Last Admin: 01/13/22 13:58 Dose: Not Given Sodium Chloride (Sodium Chloride 0.9% 10 Ml Flush Syringe) 10 ml IV BID [facility] Last Admin: 01/13/22 22:50 Dose: 10 ml Sodium Chloride (Sodium Chloride 0.9% 10 Ml Flush Syringe) 10 ml IV PRN PRN PRN Reason: LINE FLUSH Review of Systems All systems: negative Exam - Vital Signs Vital signs: Vital Signs Pulse Resp 95 H 22 01/11/22 12:32 01/11/22 12:32 Results - Lab Results 01/14/22 05:00 01/14/22 05:00 Most recent lab results ABG pH 7.366 pH Units (7.350-7.450) 01/13/22 15:55 ABG pCO2 32.7 mm Hg 01/13/22 15:55 ABG pO2 68.3 mm Hg (80.0-90.0) L 01/13/22 15:55 ABG HCO3 18.3 mmol/L (20.0-26.0) L 01/13/22 15:55 ABG O2 Saturation 93.6 % (95.0-99.0) L 01/13/22 15:55 Calcium 8.3 mg/dL (8.4-10.2) L 01/14/22 05:00 Magnesium 2.20 mg/dL (1.7-2.3) 01/11/22 12:48 Urine Creatinine 107.8 mg/dL (0.1-20.0) H 01/13/22 23:10 Urine Sodium 54 mmol/L 01/13/22 23:10 Assessment and Plan 1. Acute kidney injury: Vasomotor RAUL in the setting of hypotension / volume depletion. Urine studies and Renal US ordered. ATN vs Hepato-renal syndrome. Continue IV fluids. Monitor renal function. Creatinine level increasing. Renal prognosis is guaded. Avoid nephrotoxic agents. Meds dosage based on GFR. 2. FEN: Hyperchloremic metabolic acidosis, monitor. Monitor lytes and volume status. 3. Acetaminophen OD / toxicity: S/p N-actylcysteine. Monitor labs. Followed by GI. 4. Paranoid schizophrenia: Supportive care. 5. Hyperglycemia: Monitor. Subjective: Patient was seen and examined at the bedside. Nursing staff at the bedside. Examination: General appearance: well-developed, appears stated age, not in distress, morbidly obese HEENT: atraumatic, TARAH Neck: trachea midline Respiratory: ctab Heart: S1S2, regular, no murmur Abdomen: soft, obese, bowel sounds heard, NT Integumentary: no obvious rash Neurologic: AO, able to move extremities Ext: no edema noted
--- NOTE | 2022-01-14 09:31 | Progress Note ---
Assessment and Plan Assessment and plan: 41 YO Female with Obesity Hypoventilation Syndrome, HTN, MDD, Paranoid Schizophrenia, Prior Suicide Attempt with medication overdose presents to ED for evaluation. Patient exhibits tangential thinking and is unable to provide detailed history. Patient history taken from EMS staff, ED staff, as well as the patient's sister who accompanied the patient to the emergency department. Patient sister reports that the patient took approximately 40 tablets of Tylenol 500 mg over the past 1 day in an effort to relieve pain as well as an attempt to take her own life. Patient transported [facility] via private vehicle for further care and evaluation of the aforementioned symptoms. The patient was seen and evalu ated in the emergency department. All lab and imaging studies reviewed. Patient found to have acute kidney injury, systemic plantar response syndrome, as well as suicide attempt complicated by psychotic break. [address] Mental health team consulted in ED. Poison control notified. Patient treated with Acetadote as per poison control protocol. Patient admitted to IMCU due to increased risk of worsening symptoms. Patient exhibits tangential thinking at time of evaluation but has a positive gag reflex and is able to protect her airway without difficulty. No reports of fever, chills, chest pain, palpitation or productive cough, skin rash, recent contact, or known exposure to COVID-19. Prior admission for 02/28/20 reviewed. All medication listed at time of admission has been reconciled. Advanced care planning conducted in ED. 3/2: Continue current management. LFTs still significantly elevated actually going up discussed with pharmacist but the recommendation Acetadote will be restarted. We will monitor LFTs every 8 hours. Will contact poison control if worsening findings are noted. Patient with no evidence of metabolic encephalopathy at this time. Psych has been consulted. Continue 1013 3: Inpatient psych hospitalization as recommended by psych team when clini katiuska improved. In the meantime patient showing some improvement in AST, ALTHOUGH ALT and INR slightly worse, discussed with GI specialist, will continue to monitor. Was restarted on Acetadote yesterday. We will continue to monitor LFTs every 8 hours. Patient reports history of sickle cell disease for which she is on chronic opioid medication including MS Contin. I have not been able to verify this. Patient also has a worsening coagulopathy with increasing INR ideally should be transferred but I am not quite sure. Will stop fluids once patient able to tolerate ORAL FLUIDS. Prognosis: remains guarded 3/4: Patient continues to show some improvement in LFTs. We will continue to trend labs. INR improving AST significantly improved. Creatinine is 4 today appears to have peaked will monitor in a.m. to ensure improvement. Nephrology is following no indication for renal replacement therapy at this time. Once her renal function begins to show recovery patient will be cleared for disc harge to inpatient psych. (1) Suicide attempt by drug overdose Current Visit: No Status: Acute Plan to address problem: Tylenol overdose: Patient treated with Acetadote. Poison control notified. IV fluid resuscitation therapy, supportive care. Avoid hepatotoxic agents. (2) SIRS (systemic inflammatory response syndrome) Current Visit: Yes Status: Acute Plan to address problem: Supportive care, CBC, repeat CBC in a.m. No source of infection found at this time. (3) RAUL (acute kidney injury) Current Visit: No Status: Acute Plan to address problem: IV fluid resuscitation therapy, BMP, repeat BMP in a.m. to monitor serum creatinine as well as GFR. Monitor fluid balance. (4) Paranoid schizophrenia Current Visit: No Status: Acute Plan to address problem: Mental health team consulted, continue medical management, supportive care. (5) morbidly obese (6) Secondary coagulopathy (7) Hyperbliribunemia (8) DVT prophylaxis Current Visit: No Status: Acute Plan to address problem: SCD to bilateral lower extremities while in bed (9) Advance care planning Current Visit: Yes Status: Acute Plan to address problem: Disease education conducted, care plan discussed, diagnoses discussed, prognosis discussed, patient is full code. Patient family knowledge understanding and agreed with care plan, +30 minutes. History Interval history: Patient seen and examined this morning no new nausea vomiting. Hospitalist Physical - Physical exam Narrative exam: VITAL SIGNS: Reviewed. GENERAL: The patient appears normally developed, morbidly obese, vital signs as documented. HEAD: No signs of head trauma. EYES: Pupils are equal. Extraocular motions intact. EARS: Hearing grossly intact. MOUTH: Oropharynx is normal. NECK: No adenopathy, no JVD. CHEST: Chest with clear breath sounds bilaterally. No wheezes, rales, or rhonchi. CARDIAC: Regular rate and rhythm. S1 and S2, without murmurs, gallops, or rubs. VASCULAR: No Edema. Peripheral pulses normal and equal in all extremities. ABDOMEN: Soft, non tender and non distended. No rebound or guarding, and no masses palpated. Bowel Sounds normal. MUSCULOSKELETAL: Good range of motion of all major joints. Extremities without clubbing, cyanosis or edema. NEUROLOGIC EXAM: Alert and oriented x 3 No focal sensory or strength deficits. Speech normal. Follows commands. PSYCHIATRIC: Mood normal. SKIN: detail exam as documented in skin assessment - Constitutional Vitals: Temp Pulse Resp BP Pulse Ox 98.2 F 90 16 154/95 99 01/14/22 08:15 01/14/22 07:00 01/14/22 07:00 01/14/22 07:30 01/14/22 07:30 General appearance: Present: mild distress Results - Labs CBC & Chem 7: 01/14/22 05:00 01/14/22 05:00 Labs: Laboratory Last Values WBC 11.4 K/mm3 (4.5-11.0) H 01/14/22 05:00 RBC 4.13 M/mm3 (3.65-5.03) 01/14/22 05:00 Hgb 10.1 gm/dl (10.1-14.3) 01/14/22 05:00 Hct 31.2 % (30.3-42.9) D 01/14/22 05:00 MCV 76 fl (79-97) L 01/14/22 05:00 MCH 25 pg (28-32) L 01/14/22 05:00 MCHC 33 % (30-34) 01/14/22 05:00 RDW 27.2 % (13.2-15.2) H 01/14/22 05:00 Plt Count 99 K/mm3 (140-440) L 01/14/22 05:00 Mclennan % (Auto) [employer] 01/11/22 12:48 Eos % (Auto) [employer] 01/11/22 12:48 [place] # (Auto) [employer] 01/11/22 12:48 Eos # (Auto) [employer] 01/11/22 12:48 Baso # (Auto) [employer] 01/11/22 12:48 Add Manual Diff Complete 01/11/22 12:48 Total Counted 100 01/11/22 12:48 Seg Neuts % (Manual) 92.0 % (40.0-70.0) H 01/11/22 12:48 Band Neutrophils % 1.0 % 01/11/22 12:48 Lymphocytes % (Manual) 2.0 % (13.4-35.0) L 01/11/22 12:48 Reactive Lymphs % (Man) 0 % 01/11/22 12:48 Monocytes % (Manual) 5.0 % (0.0-7.3) 01/11/22 12:48 Eosinophils % (Manual) 0 % (0.0-4.3) 01/11/22 12:48 Basophils % (Manual) 0 % (0.0-1.8) 01/11/22 12:48 Metamyelocytes % 0 % 01/11/22 12:48 Myelocytes % 0 % 01/11/22 12:48 Promyelocytes % 0 % 01/11/22 12:48 Blast Cells % 0 % 01/11/22 12:48 Nucleated RBC % Not Reportable 01/11/22 12:48 Seg Neutrophils # [employer] 01/11/22 12:48 Seg Neutrophils # Man 12.5 K/mm3 (1.8-7.7) H 01/11/22 12:48 Band Neutrophils # 0.1 K/mm3 01/11/22 12:48 Lymphocytes # (Manual) 0.3 K/mm3 (1.2-5.4) L 01/11/22 12:48 Abs React Lymphs (Man) 0.0 K/mm3 01/11/22 12:48 Monocytes # (Manual) 0.7 K/mm3 (0.0-0.8) 01/11/22 12:48 Eosinophils # (Manual) 0.0 K/mm3 (0.0-0.4) 01/11/22 12:48 Basophils # (Manual) 0.0 K/mm3 (0.0-0.1) 01/11/22 12:48 Metamyelocytes # 0.0 K/mm3 01/11/22 12:48 Myelocytes # 0.0 K/mm3 01/11/22 12:48 Promyelocytes # 0.0 K/mm3 01/11/22 12:48 Blast Cells # 0.0 K/mm3 01/11/22 12:48 WBC Morphology Not Reportable 01/11/22 12:48 Hypersegmented Neuts Not Reportable 01/11/22 12:48 Hyposegmented Neuts Not Reportable 01/11/22 12:48 Hypogranular Neuts Not Reportable 01/11/22 12:48 Smudge Cells Not Reportable 01/11/22 12:48 Toxic Granulation Not Reportable 01/11/22 12:48 Toxic Vacuolation Not Reportable 01/11/22 12:48 Dohle Bodies Not Reportable 01/11/22 12:48 Pelger-Huet Anomaly Not Reportable 01/11/22 12:48 Celine Rods Not Reportable 01/11/22 12:48 Platelet Estimate Consistent w auto 01/11/22 12:48 Clumped Platelets Not Reportable 01/11/22 12:48 Plt Clumps, EDTA Not Reportable 01/11/22 12:48 Large Platelets Not Reportable 01/11/22 12:48 Giant Platelets Not Reportable 01/11/22 12:48 Platelet Satelliting Not Reportable 01/11/22 12:48 Plt Morphology Comment Not Reportable 01/11/22 12:48 RBC Morphology Not Reportable 01/11/22 12:48 Dimorphic RBCs Not Reportable 01/11/22 12:48 Polychromasia Not Reportable 01/11/22 12:48 Hypochromasia 1+ 01/11/22 12:48 Poikilocytosis Not Reportable 01/11/22 12:48 Anisocytosis 2+ 01/11/22 12:48 Microcytosis Not Reportable 01/11/22 12:48 Macrocytosis Not Reportable 01/11/22 12:48 Spherocytes Not Reportable 01/11/22 12:48 Pappenheimer Bodies Not Reportable 01/11/22 12:48 Sickle Cells Not Reportable 01/11/22 12:48 Target Cells Not Reportable 01/11/22 12:48 Tear Drop Cells Not Reportable 01/11/22 12:48 Ovalocytes Not Reportable 01/11/22 12:48 Helmet Cells Not Reportable 01/11/22 12:48 [place] Bodies Not Reportable 01/11/22 12:48 [place] Rings Not Reportable 01/11/22 12:48 [place] Cells Not Reportable 01/11/22 12:48 Bite Cells Not Reportable 01/11/22 12:48 Crenated Cell Not Reportable 01/11/22 12:48 Elliptocytes Not Reportable 01/11/22 12:48 Acanthocytes (Spur) Not Reportable 01/11/22 12:48 Rouleaux Not Reportable 01/11/22 12:48 Hemoglobin C Crystals Not Reportable 01/11/22 12:48 Schistocytes Not Reportable 01/11/22 12:48 Malaria parasites Not Reportable 01/11/22 12:48 Evans Bodies Not Reportable 01/11/22 12:48 Hem Pathologist Commnt No 01/11/22 12:48 PT 24.4 Sec. (12.2-14.9) H 01/14/22 05:00 INR 1.92 (0.87-1.13) H 01/14/22 05:00 ABG pH 7.366 pH Units (7.350-7.450) 01/13/22 15:55 ABG pCO2 32.7 mm Hg 01/13/22 15:55 ABG pO2 68.3 mm Hg (80.0-90.0) L 01/13/22 15:55 ABG HCO3 18.3 mmol/L (20.0-26.0) L 01/13/22 15:55 ABG O2 Saturation 93.6 % (95.0-99.0) L 01/13/22 15:55 ABG O2 Content 14.0 (0.0-44) 01/13/22 15:55 ABG Base Excess -6.2 mmol/L (-2.0-3.0) L 01/13/22 15:55 ABG Hemoglobin 10.8 gm/dl (12.0-16.0) L 01/13/22 15:55 ABG Carboxyhemoglobin 1.2 % (0.0-5.0) 01/13/22 15:55 ABG Methemoglobin 0.6 % (0.0-1.5) 01/13/22 15:55 Oxyhemoglobin 91.9 % (95.0-99.0) L 01/13/22 15:55 FiO2 21 % 01/13/22 15:55 Sodium 141 mmol/L (137-145) 01/14/22 05:00 Potassium 3.7 mmol/L (3.6-5.0) 01/14/22 05:00 Chloride 107.9 mmol/L (98-107) H 01/14/22 05:00 Carbon Dioxide 18 mmol/L (22-30) L 01/14/22 05:00 Anion Gap 19 mmol/L 01/14/22 05:00 BUN 28 mg/dL (7-17) H 01/14/22 05:00 Creatinine 4.0 mg/dL (0.6-1.2) H 01/14/22 05:00 Estimated GFR 15 ml/min 01/14/22 05:00 BUN/Creatinine Ratio 7 % 01/14/22 05:00 Glucose 117 mg/dL (65-100) H 01/14/22 05:00 Calcium 8.3 mg/dL (8.4-10.2) L 01/14/22 05:00 Magnesium 2.20 mg/dL (1.7-2.3) 01/11/22 12:48 Total Bilirubin 1.50 mg/dL (0.1-1.2) H 01/14/22 05:00 Direct Bilirubin 0.8 mg/dL (0-0.2) H 01/14/22 01:06 Indirect Bilirubin 0.6 mg/dL 01/14/22 01:06 AST 1030 units/L (5-40) H 01/14/22 05:00 ALT 4056 units/L (7-56) H 01/14/22 05:00 Alkaline Phosphatase 122 units/L (35-129) 01/14/22 05:00 Total Creatine Kinase 28 units/L (30-135) L 01/14/22 05:00 Total Protein 6.5 g/dL (6.3-8.2) 01/14/22 05:00 Albumin 3.0 g/dL (3.9-5) L 01/14/22 05:00 Albumin/Globulin Ratio 0.9 % 01/14/22 05:00 Urine Color Yellow (Yellow) 01/13/22 23:10 Urine Turbidity Cloudy (Clear) 01/13/22 23:10 Urine pH 5.0 (5.0-7.0) 01/13/22 23:10 Ur Specific [place] 1.011 (1.003-1.030) 01/13/22 23:10 Urine Protein 100 mg/dl mg/dL (Negative) 01/13/22 23:10 Urine Glucose (UA) Neg mg/dL (Negative) 01/13/22 23:10 Urine Ketones Neg mg/dL (Negative) 01/13/22 23:10 Urine Blood Lg (Negative) 01/13/22 23:10 Urine Nitrite Neg (Negative) 01/13/22 23:10 Ur Reducing Substances Not Reportable 01/11/22 Unknown Urine Bilirubin Neg (Negative) 01/13/22 23:10 Urine Ictotest Not Reportable 01/11/22 Unknown Urine Urobilinogen < 2.0 mg/dL (<2.0) 01/13/22 23:10 Ur Leukocyte Esterase Neg (Negative) 01/13/22 23:10 Urine WBC (Auto) 16.0 /HPF (0.0-6.0) H 01/13/22 23:10 Urine RBC (Auto) 84.0 /HPF (0.0-6.0) 01/13/22 23:10 U Epithel Cells (Auto) 2.0 /HPF (0-13.0) 01/13/22 23:10 Urine Bacteria (Auto) 1+ /HPF (Negative) 01/13/22 23:10 Urine Mucus Few /HPF 01/13/22 23:10 Urine Yeast (Budding) 3+ /HPF 01/13/22 23:10 Urine Eosinophils Few (None Seen) 01/13/22 23:10 Urine Creatinine 107.8 mg/dL (0.1-20.0) H 01/13/22 23:10 Urine Sodium 54 mmol/L 01/13/22 23:10 Urine HCG, Qual Negative (Negative) 01/11/22 Unknown Salicylates < 0.3 mg/dL (2.8-20.0) L 01/11/22 12:48 Urine Opiates Screen Negative 01/11/22 Unknown Urine Methadone Screen Negative 01/11/22 Unknown Acetaminophen 5.0 ug/mL (10.0-30.0) L 01/14/22 01:06 Ur Barbiturates Screen Negative 01/11/22 Unknown Ur Phencyclidine Scrn Negative 01/11/22 Unknown Ur Amphetamines Screen Negative 01/11/22 Unknown U Benzodiazepines Scrn Negative 01/11/22 Unknown Urine Cocaine Screen Negative 01/11/22 Unknown U Marijuana (THC) Screen Negative 01/11/22 Unknown Drugs of Abuse Note Disclamer 01/11/22 Unknown Plasma/Serum Alcohol < 0.01 % (0-0.07) 01/11/22 12:48 Coronavirus (PCR) Negative (Negative) 01/12/22 08:25 Pino/IV: Voiding Method Bedside Commode Active Medications - Current Medications Current Medications: Generic Name Dose Route Start Last Admin Trade Name Freq PRN Reason Stop Dose Admin Albuterol 2.5 mg 01/11/22 14:41 Albuterol 2.5 Mg/3 Ml Nebu IH Q3HRT PRN Shortness Of Breath Aripiprazole 5 mg 01/12/22 18:00 01/13/22 13:55 Aripiprazole 5 Mg Tab PO Not Given QDAY RIC Hydromorphone HCl 0.5 mg 01/11/22 14:41 Hydromorphone 1 Mg/1 Ml Inj IV Q23H PRN Pain , Severe (7-10) Acetylcysteine 10,000 mg/ 1,050 mls @ 62.5 mls/hr 01/12/22 14:00 01/13/22 22: 49 Dextrose IV 62.5 mls/hr DIRECT RIC Administration Sodium Chloride 1,000 mls @ 100 mls/hr 01/13/22 14:15 01/14/22 06:04 Nacl 0.9% 1000 Ml IV 01/15/22 00:14 100 mls/hr DIRECT RIC Administration Mirtazapine 15 mg 01/12/22 22:00 01/13/22 22:52 Mirtazapine 15 Mg Tab PO Not Given QHS RIC Morphine Sulfate 2 mg 01/11/22 14:41 01/13/22 19:56 Morphine 2 Mg/1 Ml Inj IV 2 mg Q12H PRN Administration Pain, Moderate (4-6) Multivitamins 1 each 01/13/22 10:00 01/13/22 13:55 Multivitamins ,Therapeutic Tab PO Not Given QDAY [facility] Ondansetron HCl 4 mg 01/11/22 22:21 01/13/22 19:56 Ondansetron 4 Mg/2 Ml Inj IV 4 mg Q8H PRN Administration Nausea And Vomiting Sertraline HCl 25 mg 01/13/22 12:00 01/13/22 13:58 Sertraline 25 Mg Tab PO Not Given QDAY RIC Sodium Chloride 10 ml 01/11/22 22:00 01/13/22 22:50 Sodium Chloride 0.9% 10 Ml Flush Syringe IV 10 ml BID RIC Administration Sodium Chloride 10 ml 01/11/22 14:41 Sodium Chloride 0.9% 10 Ml Flush Syringe IV PRN PRN LINE FLUSH
[2022-01-14] MEDS: ARIPiprazole 5 MG TAB PO SCH (11:17)
[2022-01-14] MEDS: SERTRALINE 25 MG TAB PO SCH (11:18)
[2022-01-14] MEDS: MULTIVITAMINS ,THERAPEUTIC TAB PO SCH (11:18)
--- NOTE | 2022-01-14 11:52 | Ultrasound Report ---
ULTRASOUND RENAL INDICATION / CLINICAL INFORMATION: Acute renal failure.. COMPARISON: None available. FINDINGS: RIGHT KIDNEY: Length = 13.0 cm. - Echogenicity: Mildly echogenic. - Parenchymal Thickness: Normal. - Hydronephrosis: None. - Cyst / Mass: None. - Stones: None seen. LEFT KIDNEY: Length = 10.7 cm. - Echogenicity: Mildly echogenic. - Parenchymal Thickness: Normal. - Hydronephrosis: None. - Cyst / Mass: None. - Stones: None seen. URINARY BLADDER: No significant abnormality. FREE FLUID: None. ADDITIONAL FINDINGS: None. IMPRESSION: 1. Increased cortical echogenicity bilaterally, suggestive of medical renal disease. Scribed by: Manda Muñoz RDMS, ANAT, TAY Scribed: 01/14/2022 10:06 AM I have reviewed the images, agree with this report, and edited this report as needed. Signer Name: Jayce Hurd MD Signed: 01/14/2022 11:47 AM Workstation Name: [id number]
--- NOTE | 2022-01-14 12:25 | Progress Note ---
Subjective - Reason for Consult Consult date: 01/14/22 Reason for consult: suicidal attempt - Chief Complaint Chief complaint: The patient was seen today. She appears withdrawn and looks depressed. Her affect is flat. She denies depression tho, she says "I'm just sick." She denies SI/HI. She stats she took the pills because she was hurting. The patient states she took 30 pills. REVIEW OF SYSTEMS Constitutional: Negative for weight loss ENT: Negative for stridor Respiratory: Negative for cough or hemoptysis All other systems reviewed and are negative MENTAL STATUS EXAMINATION General Appearance and Behavior: Age appropriate, good hygiene, wearing appropriate clothes, calm, cooperative Cooperation: Participating, guarded Psychomotor Behavior: Tremors Mood: okay Affect and affective range: congruent with mood Thought Process: illogical Thought Content: Delusional Speech: Normal volume, Regular rate and rhythm, Suicidal Ideation: Denies Homicidal Ideation: Denies Hallucinations: Denies Delusions: Yes Impulse Control: impaired Insight and Judgment: Limited insight and judgment, Memory: Limited Attention: Normal Orientation: Alert, oriented Assessment and Plan (1) Acetaminophen Overdose (2) Major Depressive Disorder Treatment Plan 1013 Abilify 5mg po daily Remeron 15mg po qhs Increase Zoloft 50mg po daily Medical: per primary Disposition: Recommend acute psychiatric inpatient treatment Will follow. Thanks Case staffed with Dr. Cox Mental Status Exam - Vital signs Last Vital Signs Temp 98.2 F 01/14/22 08:15 Pulse 100 H 01/14/22 08:00 Resp 20 01/14/22 08:00 BP 154/86 01/14/22 11:30 Pulse Ox 98 01/14/22 11:30
--- NOTE | 2022-01-14 14:52 | Gastroenterology Progress Note ---
Assessment and Plan - Patient Problems (1) Suicide attempt by drug overdose Current Visit: No Status: Acute Plan to address problem: - Acetadote given and patient appropriately triaged to the ICU. - Currently no bleeding, encephalopathy, or peritonitis. Is having persistent N/V with RAUL. - Will continue to trend labs, adam transaminases and INR to see if she needs advanced level of care, though suicide attempt and gestures, morbid obesity, and lack of insurance would make liver transplant evaluation difficult. - Labs markedly improved; OK to discharge the patient to Psychiatry Inpatient in the AM/medically cleared. Subjective Date of service: 01/14/22 Principal diagnosis: Tylenol Overdose Interval history: The patient's N/V is improved and she is holding down some fluids and food. She still has abdominal pain, but admits it is improved. Objective - Constitutional Vitals: Temp Pulse Resp BP Pulse Ox 98.3 F 100 H 20 141/95 100 01/14/22 12:00 01/14/22 12:00 01/14/22 12:00 01/14/22 13:30 01/14/22 13:30 General appearance: no acute distress - Respiratory Respiratory effort: normal Respiratory: bilateral: CTA - Cardiovascular Rhythm: regular Heart Sounds: Present: S1 & S2 - Gastrointestinal General gastrointestinal: Present: soft, non-tender, non-distended - Neurologic Neurological: alert and oriented x3 - Psychiatric Psychiatric: depressed - Labs CBC & Chem 7: 01/14/22 05:00 01/14/22 05:00 Labs: Laboratory Results - last 24 hr 01/13/22 01/13/22 01/13/22 15:55 23:10 23:10 WBC RBC Hgb Hct MCV MCH MCHC RDW Plt Count PT INR ABG pH 7.366 ABG pCO2 32.7 ABG pO2 68.3 L ABG HCO3 18.3 L ABG O2 Saturation 93.6 L ABG O2 Content 14.0 ABG Base Excess -6.2 L ABG Hemoglobin 10.8 L ABG Carboxyhemoglobin 1.2 ABG Methemoglobin 0.6 Oxyhemoglobin 91.9 L FiO2 21 Sodium Potassium Chloride Carbon Dioxide Anion Gap BUN Creatinine Estimated GFR BUN/Creatinine Ratio Glucose Calcium Total Bilirubin Direct Bilirubin Indirect Bilirubin AST ALT Alkaline Phosphatase Total Creatine Kinase Total Protein Albumin Albumin/Globulin Ratio Urine Color Yellow Urine Turbidity Cloudy Urine pH 5.0 Ur Specific [place] 1.011 Urine Protein 100 mg/dl Urine Glucose (UA) Neg Urine Ketones Neg Urine Blood Lg Urine Nitrite Neg Urine Bilirubin Neg Urine Urobilinogen < 2.0 Ur Leukocyte Esterase Neg Urine WBC (Auto) 16.0 H Urine RBC (Auto) 84.0 U Epithel Cells (Auto) 2.0 Urine Bacteria (Auto) 1+ Urine Mucus Few Urine Yeast (Budding) 3+ Urine Eosinophils Urine Creatinine 107.8 H Urine Sodium 54 Acetaminophen 01/13/22 01/14/22 01/14/22 23:10 01:06 01:06 WBC RBC Hgb Hct MCV MCH MCHC RDW Plt Count PT INR ABG pH ABG pCO2 ABG pO2 ABG HCO3 ABG O2 Saturation ABG O2 Content ABG Base Excess ABG Hemoglobin ABG Carboxyhemoglobin ABG Methemoglobin Oxyhemoglobin FiO2 Sodium 140 Potassium 3.6 Chloride 106.6 Carbon Dioxide 18 L Anion Gap 19 BUN 28 H Creatinine 4.0 H Estimated GFR 15 BUN/Creatinine Ratio 7 Glucose 109 H Calcium 8.1 L Total Bilirubin 1.40 H 1.40 H Direct Bilirubin 0.8 H Indirect Bilirubin 0.6 AST 1290 H 1282 H ALT 4134 H 4166 H Alkaline Phosphatase 111 113 Total Creatine Kinase Total Protein 5.9 L 5.9 L Albumin 2.8 L 2.7 L Albumin/Globulin Ratio 0.9 0.8 Urine Color Urine Turbidity Urine pH Ur Specific [place] Urine Protein Urine Glucose (UA) Urine Ketones Urine Blood Urine Nitrite Urine Bilirubin Urine Urobilinogen Ur Leukocyte Esterase Urine WBC (Auto) Urine RBC (Auto) U Epithel Cells (Auto) Urine Bacteria (Auto) Urine Mucus Urine Yeast (Budding) Urine Eosinophils Few Urine Creatinine Urine Sodium Acetaminophen 01/14/22 01/14/22 01/14/22 01:06 05:00 05:00 WBC 11.4 H RBC 4.13 Hgb 10.1 Hct 31.2 D MCV 76 L MCH 25 L MCHC 33 RDW 27.2 H Plt Count 99 L PT 24.4 H INR 1.92 H ABG pH ABG pCO2 ABG pO2 ABG HCO3 ABG O2 Saturation ABG O2 Content ABG Base Excess ABG Hemoglobin ABG Carboxyhemoglobin ABG Methemoglobin Oxyhemoglobin FiO2 Sodium Potassium Chloride Carbon Dioxide Anion Gap BUN Creatinine Estimated GFR BUN/Creatinine Ratio Glucose Calcium Total Bilirubin Direct Bilirubin Indirect Bilirubin AST ALT Alkaline Phosphatase Total Creatine Kinase Total Protein Albumin Albumin/Globulin Ratio Urine Color Urine Turbidity Urine pH Ur Specific [place] Urine Protein Urine Glucose (UA) Urine Ketones Urine Blood Urine Nitrite Urine Bilirubin Urine Urobilinogen Ur Leukocyte Esterase Urine WBC (Auto) Urine RBC (Auto) U Epithel Cells (Auto) Urine Bacteria (Auto) Urine Mucus Urine Yeast (Budding) Urine Eosinophils Urine Creatinine Urine Sodium Acetaminophen 5.0 L 01/14/22 05:00 WBC RBC Hgb Hct MCV MCH MCHC RDW Plt Count PT INR ABG pH ABG pCO2 ABG pO2 ABG HCO3 ABG O2 Saturation ABG O2 Content ABG Base Excess ABG Hemoglobin ABG Carboxyhemoglobin ABG Methemoglobin Oxyhemoglobin FiO2 Sodium 141 Potassium 3.7 Chloride 107.9 H Carbon Dioxide 18 L Anion Gap 19 BUN 28 H Creatinine 4.0 H Estimated GFR 15 BUN/Creatinine Ratio 7 Glucose 117 H Calcium 8.3 L Total Bilirubin 1.50 H Direct Bilirubin Indirect Bilirubin AST 1030 H ALT 4056 H Alkaline Phosphatase 122 Total Creatine Kinase 28 L Total Protein 6.5 Albumin 3.0 L Albumin/Globulin Ratio 0.9 Urine Color Urine Turbidity Urine pH Ur Specific [place] Urine Protein Urine Glucose (UA) Urine Ketones Urine Blood Urine Nitrite Urine Bilirubin Urine Urobilinogen Ur Leukocyte Esterase Urine WBC (Auto) Urine RBC (Auto) U Epithel Cells (Auto) Urine Bacteria (Auto) Urine Mucus Urine Yeast (Budding) Urine Eosinophils Urine Creatinine Urine Sodium Acetaminophen
[2022-01-14] MEDS: ACETADOTE(ACETYLCYSTEINE IV) 10,000 MG in DEXTROSE 5% IN WATER 1,000 ML IV SCH (16:26)
[2022-01-14] MEDS: ONDANSETRON 4 MG/2 ML INJ IV PRN (20:32)
[2022-01-14] MEDS: MORPHINE 2 MG/1 ML INJ IV PRN (20:32)
[2022-01-14] MEDS: MIRTAZAPINE 15 MG TAB PO SCH (22:47)
[2022-01-15 04:36] LABS: Hemoglobin 9.8 gm/dl (10.1-14.3); Mean Corpuscular HGB Conc 32 % (30-34); Mean Corpuscular Volume 76 fl (79-97); Platelet Count 136 K/mm3 (140-440); Red Blood Count 4.09 M/mm3 (3.65-5.03)
[2022-01-15 04:46] LABS: Red Cell Distribution Width 27.2 % (13.2-15.2)
[2022-01-15 04:51] LABS: INR 1.42 (0.87-1.13)
[2022-01-15 04:54] LABS: Albumin 2.7 g/dL (3.9-5); Calcium 8.6 mg/dL (8.4-10.2)
--- NOTE | 2022-01-15 09:20 | Progress Note ---
Assessment and Plan Assessment and plan: 41 YO Female with Obesity Hypoventilation Syndrome, HTN, MDD, Paranoid Schizophrenia, Prior Suicide Attempt with medication overdose presents to ED for evaluation. Patient exhibits tangential thinking and is unable to provide detailed history. Patient history taken from EMS staff, ED staff, as well as the patient's sister who accompanied the patient to the emergency department. Patient sister reports that the patient took approximately 40 tablets of Tylenol 500 mg over the past 1 day in an effort to relieve pain as well as an attempt to take her own life. Patient transported [facility] via private vehicle for further care and evaluation of the aforementioned symptoms. The patient was seen and evalu ated in the emergency department. All lab and imaging studies reviewed. Patient found to have acute kidney injury, systemic plantar response syndrome, as well as suicide attempt complicated by psychotic break. [address] Mental health team consulted in ED. Poison control notified. Patient treated with Acetadote as per poison control protocol. Patient admitted to IMCU due to increased risk of worsening symptoms. Patient exhibits tangential thinking at time of evaluation but has a positive gag reflex and is able to protect her airway without difficulty. No reports of fever, chills, chest pain, palpitation or productive cough, skin rash, recent contact, or known exposure to COVID-19. Prior admission for 02/28/20 reviewed. All medication listed at time of admission has been reconciled. Advanced care planning conducted in ED. 3/2: Continue current management. LFTs still significantly elevated actually going up discussed with pharmacist but the recommendation Acetadote will be restarted. We will monitor LFTs every 8 hours. Will contact poison control if worsening findings are noted. Patient with no evidence of metabolic encephalopathy at this time. Psych has been consulted. Continue 1013 3: Inpatient psych hospitalization as recommended by psych team when clini [place] improved. In the meantime patient showing some improvement in AST, ALTHOUGH ALT and INR slightly worse, discussed with GI specialist, will continue to monitor. Was restarted on Acetadote yesterday. We will continue to monitor LFTs every 8 hours. Patient reports history of sickle cell disease for which she is on chronic opioid medication including MS Contin. I have not been able to verify this. Patient also has a worsening coagulopathy with increasing INR ideally should be transferred but I am not quite sure. Will stop fluids once patient able to tolerate ORAL FLUIDS. Prognosis: remains guarded 3/4: Patient continues to show some improvement in LFTs. We will continue to trend labs. INR improving AST significantly improved. Creatinine is 4 today appears to have peaked will monitor in a.m. to ensure improvement. Nephrology is following no indication for renal replacement therapy at this time. Once her renal function begins to show recovery patient will be cleared for disc harge to inpatient psych. 01/15: Patient seen and examined clinically improving LFTs have improved renal function now improving down to 3.74 creatinine. Patient will be transferred to the medical floor. If creatinine continues to improve patient will be cleared for transfer to inpatient psych in a.m. (1) Suicide attempt by drug overdose Current Visit: No Status: Acute Plan to address problem: Tylenol overdose: Patient treated with Acetadote. Poison control notified. IV fluid resuscitation therapy, supportive care. Avoid hepatotoxic agents. (2) SIRS (systemic inflammatory response syndrome) Current Visit: Yes Status: Acute Plan to address problem: Supportive care, CBC, repeat CBC in a.m. No source of infection found at this time. (3) RAUL (acute kidney injury) Current Visit: No Status: Acute Plan to address problem: IV fluid resuscitation therapy, BMP, repeat BMP in a.m. to monitor serum creatinine as well as GFR. Monitor fluid balance. (4) Paranoid schizophrenia Current Visit: No Status: Acute Plan to address problem: Mental health team consulted, continue medical management, supportive care. (5) morbidly obese (6) Secondary coagulopathy (7) Hyperbliribunemia (8) DVT prophylaxis Current Visit: No Status: Acute Plan to address problem: SCD to bilateral lower extremities while in bed (9) Advance care planning Current Visit: Yes Status: Acute Plan to address problem: Disease education conducted, care plan discussed, diagnoses discussed, prognosis discussed, patient is full code. Patient family knowledge understanding and agreed with care plan, +30 minutes. History Interval history: Patient seen and examined this morning no new nausea vomiting. Tolerating p.o. Hospitalist Physical - Physical exam Narrative exam: VITAL SIGNS: Reviewed. GENERAL: The patient appears normally developed, morbidly obese, vital signs as documented. HEAD: No signs of head trauma. EYES: Pupils are equal. Extraocular motions intact. EARS: Hearing grossly intact. MOUTH: Oropharynx is normal. NECK: No adenopathy, no JVD. CHEST: Chest with clear breath sounds bilaterally. No wheezes, rales, or rhonchi. CARDIAC: Regular rate and rhythm. S1 and S2, without murmurs, gallops, or rubs. VASCULAR: No Edema. Peripheral pulses normal and equal in all extremities. ABDOMEN: Soft, non tender and non distended. No rebound or guarding, and no masses palpated. Bowel Sounds normal. MUSCULOSKELETAL: Good range of motion of all major joints. Extremities without clubbing, cyanosis or edema. NEUROLOGIC EXAM: Alert and oriented x 3 No focal sensory or strength deficits. Speech normal. Follows commands. PSYCHIATRIC: Mood normal. SKIN: detail exam as documented in skin assessment - Constitutional Vitals: Temp Pulse Resp BP Pulse Ox 99.4 F 83 21 144/91 99 01/15/22 04:00 01/15/22 06:31 01/15/22 06:31 01/15/22 06:31 01/15/22 06:31 General appearance: Present: mild distress Results - Labs CBC & Chem 7: 01/15/22 04:19 01/15/22 04:19 Labs: Laboratory Last Values WBC 5.5 K/mm3 (4.5-11.0) 01/15/22 04:19 RBC 4.09 M/mm3 (3.65-5.03) 01/15/22 04:19 Hgb 9.8 gm/dl (10.1-14.3) L 01/15/22 04:19 Hct 31.0 % (30.3-42.9) 01/15/22 04:19 MCV 76 fl (79-97) L 01/15/22 04:19 MCH 24 pg (28-32) L 01/15/22 04:19 MCHC 32 % (30-34) 01/15/22 04:19 RDW 27.2 % (13.2-15.2) H 01/15/22 04:19 Plt Count 136 K/mm3 (140-440) L 01/15/22 04:19 [place] % (Auto) [place] 01/11/22 12:48 Eos % (Auto) [place] 01/11/22 12:48 [place] # (Auto) [place] 01/11/22 12:48 Eos # (Auto) [place] 01/11/22 12:48 Baso # (Auto) [place] 01/11/22 12:48 Add Manual Diff Complete 01/11/22 12:48 Total Counted 100 01/11/22 12:48 Seg Neuts % (Manual) 92.0 % (40.0-70.0) H 01/11/22 12:48 Band Neutrophils % 1.0 % 01/11/22 12:48 Lymphocytes % (Manual) 2.0 % (13.4-35.0) L 01/11/22 12:48 Reactive Lymphs % (Man) 0 % 01/11/22 12:48 Monocytes % (Manual) 5.0 % (0.0-7.3) 01/11/22 12:48 Eosinophils % (Manual) 0 % (0.0-4.3) 01/11/22 12:48 Basophils % (Manual) 0 % (0.0-1.8) 01/11/22 12:48 Metamyelocytes % 0 % 01/11/22 12:48 Myelocytes % 0 % 01/11/22 12:48 Promyelocytes % 0 % 01/11/22 12:48 Blast Cells % 0 % 01/11/22 12:48 Nucleated RBC % Not Reportable 01/11/22 12:48 Seg Neutrophils # [place] 01/11/22 12:48 Seg Neutrophils # Man 12.5 K/mm3 (1.8-7.7) H 01/11/22 12:48 Band Neutrophils # 0.1 K/mm3 01/11/22 12:48 Lymphocytes # (Manual) 0.3 K/mm3 (1.2-5.4) L 01/11/22 12:48 Abs React Lymphs (Man) 0.0 K/mm3 01/11/22 12:48 Monocytes # (Manual) 0.7 K/mm3 (0.0-0.8) 01/11/22 12:48 Eosinophils # (Manual) 0.0 K/mm3 (0.0-0.4) 01/11/22 12:48 Basophils # (Manual) 0.0 K/mm3 (0.0-0.1) 01/11/22 12:48 Metamyelocytes # 0.0 K/mm3 01/11/22 12:48 Myelocytes # 0.0 K/mm3 01/11/22 12:48 Promyelocytes # 0.0 K/mm3 01/11/22 12:48 Blast Cells # 0.0 K/mm3 01/11/22 12:48 WBC Morphology Not Reportable 01/11/22 12:48 Hypersegmented Neuts Not Reportable 01/11/22 12:48 Hyposegmented Neuts Not Reportable 01/11/22 12:48 Hypogranular Neuts Not Reportable 01/11/22 12:48 Smudge Cells Not Reportable 01/11/22 12:48 Toxic Granulation Not Reportable 01/11/22 12:48 Toxic Vacuolation Not Reportable 01/11/22 12:48 Dohle Bodies Not Reportable 01/11/22 12:48 Pelger-Huet Anomaly Not Reportable 01/11/22 12:48 Celine Rods Not Reportable 01/11/22 12:48 Platelet Estimate Consistent w auto 01/11/22 12:48 Clumped Platelets Not Reportable 01/11/22 12:48 Plt Clumps, EDTA Not Reportable 01/11/22 12:48 Large Platelets Not Reportable 01/11/22 12:48 Giant Platelets Not Reportable 01/11/22 12:48 Platelet Satelliting Not Reportable 01/11/22 12:48 Plt Morphology Comment Not Reportable 01/11/22 12:48 RBC Morphology Not Reportable 01/11/22 12:48 Dimorphic RBCs Not Reportable 01/11/22 12:48 Polychromasia Not Reportable 01/11/22 12:48 Hypochromasia 1+ 01/11/22 12:48 Poikilocytosis Not Reportable 01/11/22 12:48 Anisocytosis 2+ 01/11/22 12:48 Microcytosis Not Reportable 01/11/22 12:48 Macrocytosis Not Reportable 01/11/22 12:48 Spherocytes Not Reportable 01/11/22 12:48 Pappenheimer Bodies Not Reportable 01/11/22 12:48 Sickle Cells Not Reportable 01/11/22 12:48 Target Cells Not Reportable 01/11/22 12:48 Tear Drop Cells Not Reportable 01/11/22 12:48 Ovalocytes Not Reportable 01/11/22 12:48 Helmet Cells Not Reportable 01/11/22 12:48 [place] Bodies Not Reportable 01/11/22 12:48 [place] Rings Not Reportable 01/11/22 12:48 [place] Cells Not Reportable 01/11/22 12:48 Bite Cells Not Reportable 01/11/22 12:48 Crenated Cell Not Reportable 01/11/22 12:48 Elliptocytes Not Reportable 01/11/22 12:48 Acanthocytes (Spur) Not Reportable 01/11/22 12:48 Rouleaux Not Reportable 01/11/22 12:48 Hemoglobin C Crystals Not Reportable 01/11/22 12:48 Schistocytes Not Reportable 01/11/22 12:48 Malaria parasites Not Reportable 01/11/22 12:48 [place] Bodies Not Reportable 01/11/22 12:48 Hem Pathologist Commnt No 01/11/22 12:48 PT 19.1 Sec. (12.2-14.9) H 01/15/22 04:19 INR 1.42 (0.87-1.13) H 01/15/22 04:19 ABG pH 7.366 pH Units (7.350-7.450) 01/13/22 15:55 ABG pCO2 32.7 mm Hg 01/13/22 15:55 ABG pO2 68.3 mm Hg (80.0-90.0) L 01/13/22 15:55 ABG HCO3 18.3 mmol/L (20.0-26.0) L 01/13/22 15:55 ABG O2 Saturation 93.6 % (95.0-99.0) L 01/13/22 15:55 ABG O2 Content 14.0 (0.0-44) 01/13/22 15:55 ABG Base Excess -6.2 mmol/L (-2.0-3.0) L 01/13/22 15:55 ABG Hemoglobin 10.8 gm/dl (12.0-16.0) L 01/13/22 15:55 ABG Carboxyhemoglobin 1.2 % (0.0-5.0) 01/13/22 15:55 ABG Methemoglobin 0.6 % (0.0-1.5) 01/13/22 15:55 Oxyhemoglobin 91.9 % (95.0-99.0) L 01/13/22 15:55 FiO2 21 % 01/13/22 15:55 Sodium 137 mmol/L (137-145) 01/15/22 04:19 Potassium 3.7 mmol/L (3.6-5.0) 01/15/22 04:19 Chloride 105.4 mmol/L (98-107) 01/15/22 04:19 Carbon Dioxide 19 mmol/L (22-30) L 01/15/22 04:19 Anion Gap 16 mmol/L 01/15/22 04:19 BUN 28 mg/dL (7-17) H 01/15/22 04:19 Creatinine 3.7 mg/dL (0.6-1.2) H 01/15/22 04:19 Estimated GFR 16 ml/min 01/15/22 04:19 BUN/Creatinine Ratio 8 % 01/15/22 04:19 Glucose 116 mg/dL (65-100) H 01/15/22 04:19 Calcium 8.6 mg/dL (8.4-10.2) 01/15/22 04:19 Magnesium 2.20 mg/dL (1.7-2.3) 01/11/22 12:48 Total Bilirubin 1.00 mg/dL (0.1-1.2) 01/15/22 04:19 Direct Bilirubin 0.8 mg/dL (0-0.2) H 01/14/22 01:06 Indirect Bilirubin 0.6 mg/dL 01/14/22 01:06 AST 215 units/L (5-40) H 01/15/22 04:19 ALT 2324 units/L (7-56) H 01/15/22 04:19 Alkaline Phosphatase 102 units/L (35-129) 01/15/22 04:19 Total Creatine Kinase 28 units/L (30-135) L 01/14/22 05:00 Total Protein 6.0 g/dL (6.3-8.2) L 01/15/22 04:19 Albumin 2.7 g/dL (3.9-5) L 01/15/22 04:19 Albumin/Globulin Ratio 0.8 % 01/15/22 04:19 Urine Color Yellow (Yellow) 01/13/22 23:10 Urine Turbidity Cloudy (Clear) 01/13/22 23:10 Urine pH 5.0 (5.0-7.0) 01/13/22 23:10 Ur Specific [place] 1.011 (1.003-1.030) 01/13/22 23:10 Urine Protein 100 mg/dl mg/dL (Negative) 01/13/22 23:10 Urine Glucose (UA) Neg mg/dL (Negative) 01/13/22 23:10 Urine Ketones Neg mg/dL (Negative) 01/13/22 23:10 Urine Blood Lg (Negative) 01/13/22 23:10 Urine Nitrite Neg (Negative) 01/13/22 23:10 Ur Reducing Substances Not Reportable 01/11/22 Unknown Urine Bilirubin Neg (Negative) 01/13/22 23:10 Urine Ictotest Not Reportable 01/11/22 Unknown Urine Urobilinogen < 2.0 mg/dL (<2.0) 01/13/22 23:10 Ur Leukocyte Esterase Neg (Negative) 01/13/22 23:10 Urine WBC (Auto) 16.0 /HPF (0.0-6.0) H 01/13/22 23:10 Urine RBC (Auto) 84.0 /HPF (0.0-6.0) 01/13/22 23:10 U Epithel Cells (Auto) 2.0 /HPF (0-13.0) 01/13/22 23:10 Urine Bacteria (Auto) 1+ /HPF (Negative) 01/13/22 23:10 Urine Mucus Few /HPF 01/13/22 23:10 Urine Yeast (Budding) 3+ /HPF 01/13/22 23:10 Urine Eosinophils Few (None Seen) 01/13/22 23:10 Urine Creatinine 107.8 mg/dL (0.1-20.0) H 01/13/22 23:10 Urine Sodium 54 mmol/L 01/13/22 23:10 Urine HCG, Qual Negative (Negative) 01/11/22 Unknown Salicylates < 0.3 mg/dL (2.8-20.0) L 01/11/22 12:48 Urine Opiates Screen Negative 01/11/22 Unknown Urine Methadone Screen Negative 01/11/22 Unknown Acetaminophen 5.0 ug/mL (10.0-30.0) L 01/14/22 01:06 Ur Barbiturates Screen Negative 01/11/22 Unknown Ur Phencyclidine Scrn Negative 01/11/22 Unknown Ur Amphetamines Screen Negative 01/11/22 Unknown U Benzodiazepines Scrn Negative 01/11/22 Unknown Urine Cocaine Screen Negative 01/11/22 Unknown U Marijuana (THC) Screen Negative 01/11/22 Unknown Drugs of Abuse Note Disclamer 01/11/22 Unknown Plasma/Serum Alcohol < 0.01 % (0-0.07) 01/11/22 12:48 Coronavirus (PCR) Negative (Negative) 01/12/22 08:25 [place]/IV: Voiding Method Bedside Commode Active Medications - Current Medications Current Medications: Generic Name Dose Route Start Last Admin Trade Name Freq PRN Reason Stop Dose Admin Albuterol 2.5 mg 01/11/22 14:41 Albuterol 2.5 Mg/3 Ml Nebu IH Q3HRT PRN Shortness Of Breath Aripiprazole 5 mg 01/12/22 18:00 01/14/22 11:17 Aripiprazole 5 Mg Tab PO Not Given QDAY RIC Acetylcysteine 10,000 mg/ 1,050 mls @ 62.5 mls/hr 01/12/22 14:00 01/14/22 16:26 Dextrose IV 62.5 mls/hr DIRECT RIC Administration Mirtazapine 15 mg 01/12/22 22:00 01/14/22 22:47 Mirtazapine 15 Mg Tab PO Not Given QHS RIC Morphine Sulfate 2 mg 01/11/22 14:41 01/14/22 20:32 Morphine 2 Mg/1 Ml Inj IV 2 mg Q12H PRN Administration Pain, Moderate (4-6) Multivitamins 1 each 01/13/22 10:00 01/14/22 11:18 Multivitamins ,Therapeutic Tab PO Not Given QDAY RIC Ondansetron HCl 4 mg 01/11/22 22:21 01/14/22 20:32 Ondansetron 4 Mg/2 Ml Inj IV 4 mg Q8H PRN Administration Nausea And Vomiting Sertraline HCl 50 mg 01/15/22 10:00 Sertraline 50 Mg Tab PO QDAY RIC Sodium Chloride 10 ml 01/11/22 22:00 01/14/22 22:49 Sodium Chloride 0.9% 10 Ml Flush Syringe IV 10 ml BID RIC Administration Sodium Chloride 10 ml 01/11/22 14:41 Sodium Chloride 0.9% 10 Ml Flush Syringe IV PRN PRN LINE FLUSH
[2022-01-15] MEDS: ARIPiprazole 5 MG TAB PO SCH (09:30)
[2022-01-15] MEDS: SERTRALINE 50 MG TAB PO SCH (09:30)
[2022-01-15] MEDS: MULTIVITAMINS ,THERAPEUTIC TAB PO SCH (09:30)
[2022-01-15] MEDS: ACETADOTE(ACETYLCYSTEINE IV) 10,000 MG in DEXTROSE 5% IN WATER 1,000 ML IV SCH (10:05)
--- NOTE | 2022-01-15 10:57 | Progress Note ---
Assessment and Plan RAUL - IVF, f/u BUN/Cr & eGFR. No need for Acetylcystine in this setting CKD - Currently [id number], continue f/u HTN - Begin meds & adjust as necessary Lytes - F/u Acidosis on IVF OD - F/u Mx Subjective Date of service: 01/15/22 Principal diagnosis: Tylenol Overdose Interval history: No new complaint Objective - Vital Signs Vital signs: Vital Signs - 12hr 01/14/22 01/14/22 01/15/22 23:00 23:31 00:00 Temperature 98.8 F Pulse Rate 88 88 Pulse Rate [ 95 H From Monitor] Respiratory 17 16 12 Rate Blood Pressure 157/93 157/93 140/92 O2 Sat by Pulse 98 98 98 Oximetry 01/15/22 01/15/22 01/15/22 00:20 00:31 01:01 Temperature Pulse Rate 85 93 H 89 Pulse Rate [ From Monitor] Respiratory 14 14 Rate Blood Pressure 140/92 127/81 O2 Sat by Pulse 98 98 Oximetry 01/15/22 01/15/22 01/15/22 01:31 02:00 02:31 Temperature Pulse Rate 88 91 H Pulse Rate [ From Monitor] Respiratory 14 16 Rate Blood Pressure 127/81 129/81 129/81 O2 Sat by Pulse 98 98 99 Oximetry 01/15/22 01/15/22 01/15/22 03:00 03:31 03:50 Temperature Pulse Rate 90 88 Pulse Rate [ From Monitor] Respiratory Rate Blood Pressure 138/79 138/79 O2 Sat by Pulse 98 99 Oximetry 01/15/22 01/15/22 01/15/22 04:00 04:31 05:00 Temperature 99.4 F Pulse Rate 92 H 86 84 Pulse Rate [ From Monitor] Respiratory 16 19 Rate Blood Pressure 144/94 144/94 143/99 O2 Sat by Pulse 100 99 100 Oximetry 01/15/22 01/15/22 01/15/22 05:31 06:00 06:31 Temperature Pulse Rate 83 84 83 Pulse Rate [ From Monitor] Respiratory 17 16 21 Rate Blood Pressure 143/99 144/91 144/91 O2 Sat by Pulse 99 98 99 Oximetry 01/15/22 01/15/22 01/15/22 07:00 07:31 08:00 Temperature 99.0 F Pulse Rate 84 85 Pulse Rate [ 98 H From Monitor] Respiratory 15 13 13 Rate Blood Pressure 160/96 160/96 162/107 O2 Sat by Pulse 97 100 97 Oximetry 01/15/22 01/15/22 01/15/22 08:31 09:00 09:31 Temperature Pulse Rate 91 H 86 84 Pulse Rate [ From Monitor] Respiratory 22 18 17 Rate Blood Pressure 162/107 158/98 158/98 O2 Sat by Pulse 100 99 100 Oximetry 01/15/22 10:00 Temperature Pulse Rate 84 Pulse Rate [ From Monitor] Respiratory 16 Rate Blood Pressure 166/103 O2 Sat by Pulse 98 Oximetry - General Appearance General appearance: obese EENT: PERRL, mucous membranes moist, hearing intact Neck: no JVD Respiratory: Present: Clear to Ascultation Cardiology: regular, S1S2, other Gastrointestinal: normal, obese Integumentary: no rash Neurologic: no focal deficit Musculoskeletal: other (No Edema) - Lab 01/15/22 04:19 01/15/22 04:19 Most recent lab results ABG pH 7.366 pH Units (7.350-7.450) 01/13/22 15:55 ABG pCO2 32.7 mm Hg 01/13/22 15:55 ABG pO2 68.3 mm Hg (80.0-90.0) L 01/13/22 15:55 ABG HCO3 18.3 mmol/L (20.0-26.0) L 01/13/22 15:55 ABG O2 Saturation 93.6 % (95.0-99.0) L 01/13/22 15:55 Calcium 8.6 mg/dL (8.4-10.2) 01/15/22 04:19 Magnesium 2.20 mg/dL (1.7-2.3) 01/11/22 12:48 Urine Creatinine 107.8 mg/dL (0.1-20.0) H 01/13/22 23:10 Urine Sodium 54 mmol/L 01/13/22 23:10 Medications & Allergies - Medications Allergies/Adverse Reactions: Allergies aspirin Allergy (Verified 01/11/22 12:34) Unknown NSAIDS (Non-Steroidal Anti-Inflamma Allergy (Verified 01/11/22 12:34) Unknown Penicillins Allergy (Verified 01/11/22 12:34) Anaphylaxis Home Medications: Home Medications Medication Instructions Recorded Confirmed Last Taken Type Acetaminophen [Acetaminophen TAB] 325 mg PO Q4H PRN #6 tablet 03/06/20 Unknown Rx Metoprolol [Lopressor TAB] 100 mg PO BID #60 tablet 03/06/20 Unknown Rx Sertraline [Zoloft] 50 mg PO QDAY #30 tablet 03/06/20 Unknown Rx amLODIPine 10 mg PO QDAY #30 tablet 03/06/20 Unknown Rx buPROPion [Wellbutrin] 100 mg PO BID #60 tablet 03/06/20 Unknown Rx Active Medications: Generic Name Dose Route Start Last Admin Trade Name Cynthia PRN Reason Stop Dose Admin Albuterol 2.5 mg 01/11/22 14:41 Albuterol 2.5 Mg/3 Ml Nebu IH Q3HRT PRN Shortness Of Breath Aripiprazole 5 mg 01/12/22 18:00 01/15/22 09:30 Aripiprazole 5 Mg Tab PO Not Given QDAY RIC Acetylcysteine 10,000 mg/ 1,050 mls @ 62.5 mls/hr 01/12/22 14:00 01/15/22 10:05 Dextrose IV 62.5 mls/hr DIRECT RIC Administration Mirtazapine 15 mg 01/12/22 22:00 01/14/22 22:47 Mirtazapine 15 Mg Tab PO Not Given QHS RIC Morphine Sulfate 2 mg 01/11/22 14:41 01/14/22 20:32 Morphine 2 Mg/1 Ml Inj IV 2 mg Q12H PRN Administration Pain, Moderate (4-6) Multivitamins 1 each 01/13/22 10:00 01/15/22 09:30 Multivitamins ,Therapeutic Tab PO Not Given QDAY RIC Ondansetron HCl 4 mg 01/11/22 22:21 01/14/22 20:32 Ondansetron 4 Mg/2 Ml Inj IV 4 mg Q8H PRN Administration Nausea And Vomiting Sertraline HCl 50 mg 01/15/22 10:00 01/15/22 09:30 Sertraline 50 Mg Tab PO Not Given QDAY RIC Sodium Chloride 10 ml 01/11/22 22:00 01/15/22 09:30 Sodium Chloride 0.9% 10 Ml Flush Syringe IV 10 ml BID RIC Administration Sodium Chloride 10 ml 01/11/22 14:41 Sodium Chloride 0.9% 10 Ml Flush Syringe IV PRN PRN LINE FLUSH
--- NOTE | 2022-01-15 12:44 | Progress Note ---
Subjective - Reason for Consult Consult date: 01/15/22 Reason for consult: OD - Chief Complaint Chief complaint: The patient was seen today. She is withdrawn. Her affect if flat. She is delusional. She denies depression or SI/HI. She says "I told you I wasn't trying to take the pills to hurt myself." I ask her why did she feel the need to take 30 pills if not attempting to harm herself. The patient replies "it was 40 pills and I took them to end the pain." REVIEW OF SYSTEMS Constitutional: Negative for weight loss ENT: Negative for stridor Respiratory: Negative for cough or hemoptysis All other systems reviewed and are negative MENTAL STATUS EXAMINATION General Appearance and Behavior: Age appropriate, good hygiene, wearing appropriate clothes, calm, cooperative Cooperation: Participating, guarded Psychomotor Behavior: Tremors Mood: okay Affect and affective range: congruent with mood Thought Process: illogical Thought Content: Delusional Speech: Normal volume, Regular rate and rhythm, Suicidal Ideation: Denies Homicidal Ideation: Denies Hallucinations: Denies Delusions: Yes Impulse Control: impaired Insight and Judgment: Limited insight and judgment, Memory: Limited Attention: Normal Orientation: Alert, oriented Assessment and Plan (1) Acetaminophen Overdose (2) Major Depressive Disorder Treatment Plan 1013 Abilify 5mg po daily Remeron 15mg po qhs Increase Zoloft 50mg po daily Medical: per primary Disposition: Recommend acute psychiatric inpatient treatment Will follow. Thanks Case staffed with Dr. Cox Mental Status Exam - Vital signs Last Vital Signs Temp 99.0 F 01/15/22 08:00 Pulse 84 01/15/22 10:00 Resp 16 01/15/22 10:00 BP 166/103 01/15/22 10:00 Pulse Ox 98 01/15/22 10:00
--- NOTE | 2022-01-15 16:32 | Gastroenterology Progress Note ---
Assessment and Plan - Patient Problems (1) Suicide attempt by drug overdose Current Visit: No Status: Acute Plan to address problem: - Acetadote given and patient appropriately triaged to the ICU. - Currently no bleeding, encephalopathy, or peritonitis. Is having persistent N/V with RAUL. - Will continue to trend labs, adam transaminases and INR to see if she needs advanced level of care, though suicide attempt and gestures, morbid obesity, and lack of insurance would make liver transplant evaluation difficult. - Labs markedly improved; OK to discharge the patient to Psychiatry Inpatient in the AM/medically cleared. - We will sign off; please call with questions. Subjective Date of service: 01/15/22 Principal diagnosis: Tylenol Overdose Interval history: The patient has transferred to the floor and is tolerating liquids; she still has some abdominal pain and nausea. Objective - Constitutional Vitals: Temp Pulse Resp BP Pulse Ox 99.0 F 84 16 166/103 98 01/15/22 08:00 01/15/22 10:00 01/15/22 10:00 01/15/22 10:00 01/15/22 10:00 General appearance: no acute distress - Respiratory Respiratory effort: normal Respiratory: bilateral: CTA - Cardiovascular Rhythm: regular Heart Sounds: Present: S1 & S2 - Gastrointestinal General gastrointestinal: Present: soft, non-tender, non-distended - Labs CBC & Chem 7: 01/15/22 04:19 01/15/22 04:19 Labs: Laboratory Results - last 24 hr 01/15/22 01/15/22 01/15/22 04:19 04:19 04:19 WBC 5.5 RBC 4.09 Hgb 9.8 L Hct 31.0 MCV 76 L MCH 24 L MCHC 32 RDW 27.2 H Plt Count 136 L PT 19.1 H INR 1.42 H Sodium 137 Potassium 3.7 Chloride 105.4 Carbon Dioxide 19 L Anion Gap 16 BUN 28 H Creatinine 3.7 H Estimated GFR 16 BUN/Creatinine Ratio 8 Glucose 116 H Calcium 8.6 Total Bilirubin 1.00 AST 215 H ALT 2324 H Alkaline Phosphatase 102 Total Protein 6.0 L Albumin 2.7 L Albumin/Globulin Ratio 0.8
[2022-01-15] MEDS: SODIUM CHLORIDE 0.45% 1000 ML 1,000 ML IV SCH (17:26)
[2022-01-15] MEDS: amLODIPine 5 MG TAB PO SCH (17:26)
[2022-01-15] MEDS: MIRTAZAPINE 15 MG TAB PO SCH (21:50)
[2022-01-16] MEDS ORDERED: DEXTROSE 5% IV ONE ×2
[2022-01-16] MEDS ORDERED: WATER IV ONE ×2
[2022-01-16] MEDS ORDERED: ACETADOTE IV ONE ×2
[2022-01-16] MEDS ORDERED: ACETADOTE(ACETYLCYSTEINE IV) 5,000 MG in DEXTROSE 5% IN WATER 500 ML IV ONE (02:00)
[2022-01-16] MEDS: SODIUM CHLORIDE 0.45% 1000 ML 1,000 ML IV SCH (02:01)
--- NOTE | 2022-01-16 03:21 | Event Note ---
Date: 01/16/22 Called by poison control unit of [place] to reinitiate Acetadote for patient who has had acetaminophen overdose. Medication to be restarted as recommended.
[2022-01-16] MEDS ORDERED: ACETADOTE(ACETYLCYSTEINE IV) 10,000 MG in DEXTROSE 5% IN WATER 1,000 ML IV ONE (06:00)
--- NOTE | 2022-01-16 08:00 | Progress Note ---
Assessment and Plan Assessment and plan: #Suicide attempt by drug overdose #Tylenol toxicity -poison control contacted, continue acetadone until AST & ALT <100 -AST/ALT, INR downtrending -avoid tylenol -[address] #SIRS (systemic inflammatory response syndrome) -infection ruled out -likely 2/2 to above #RAUL (acute kidney injury) -no baseline SCr, likely has CKD stage IV -continue IVFs for now -Nephrology following -avoid nephrotoxic agents, renal dose all medications #Paranoid schizophrenia -Psychiatry following -continue sertraline, abilify and remeron #Hypertension #Medication counseling -Time:+10 mins -patient with poor insight and refusing BP medications -counseled about importance of BP control, increased risk of OR, stroke, and worsening kidney disease -continue daily encouragement to take BP medications -continue amlodipine #Morbid obesity -BMI 45.5% #Hyperbliribunemia #Secondary coagulopathy -INR downtrended to 1.22 -resolved, likely 2/2 to tylenol toxicity #Advance care planning -Disease education conducted, care plan discussed, diagnoses discussed, prognosis discussed, patient is full code. Patient family knowledge understanding and agreed with care plan, +30 minutes. History Interval history: No acute events overnight. Patient refusing blood pressure medications per nursing. Does not want to take blood pressure medications due to not believing that she has hypertension. Patient counseled and understood risks of not taking medications. Has no complaints at this time. Hospitalist Physical - Physical exam Narrative exam: GENERAL: Well-developed well-nourished. Sitting on the side of the bed in no acute distress. HEENT: Normocephalic. Atraumatic. NECK: Supple. CHEST/LUNGS: CTAB on room air HEART/CARDIOVASCULAR: RRR. No murmur, rubs or gallops appreciated. ABDOMEN: +BS. NT/ND. SKIN: No rashes noted. NEURO: No focal motor deficit. Follows all commands and is ambulatory. MUSCULOSKELETAL: No joint effusion EXTREMITIES: No cyanosis, clubbing or edema. PSYCH: Cooperative. Poor insight. - Constitutional Vitals: Temp Pulse Resp BP Pulse Ox 98.6 F 80 20 167/92 95 01/16/22 05:29 01/16/22 05:29 01/16/22 05:29 01/16/22 05:29 01/16/22 05:29 General appearance: Present: mild distress Results - Labs CBC & Chem 7: 01/17/22 07:14 01/17/22 07:14 Labs: Laboratory Last Values WBC 5.5 K/mm3 (4.5-11.0) 01/15/22 04:19 RBC 4.09 M/mm3 (3.65-5.03) 01/15/22 04:19 Hgb 9.8 gm/dl (10.1-14.3) L 01/15/22 04:19 Hct 31.0 % (30.3-42.9) 01/15/22 04:19 MCV 76 fl (79-97) L 01/15/22 04:19 MCH 24 pg (28-32) L 01/15/22 04:19 MCHC 32 % (30-34) 01/15/22 04:19 RDW 27.2 % (13.2-15.2) H 01/15/22 04:19 Plt Count 136 K/mm3 (140-440) L 01/15/22 04:19 Mccracken % (Auto) Bee Worker 01/11/22 12:48 Eos % (Auto) Bee Worker 01/11/22 12:48 Mccracken # (Auto) Bee Worker 01/11/22 12:48 Eos # (Auto) Bee Worker 01/11/22 12:48 Baso # (Auto) Bee Worker 01/11/22 12:48 Add Manual Diff Complete 01/11/22 12:48 Total Counted 100 01/11/22 12:48 Seg Neuts % (Manual) 92.0 % (40.0-70.0) H 01/11/22 12:48 Band Neutrophils % 1.0 % 01/11/22 12:48 Lymphocytes % (Manual) 2.0 % (13.4-35.0) L 01/11/22 12:48 Reactive Lymphs % (Man) 0 % 01/11/22 12:48 Monocytes % (Manual) 5.0 % (0.0-7.3) 01/11/22 12:48 Eosinophils % (Manual) 0 % (0.0-4.3) 01/11/22 12:48 Basophils % (Manual) 0 % (0.0-1.8) 01/11/22 12:48 Metamyelocytes % 0 % 01/11/22 12:48 Myelocytes % 0 % 01/11/22 12:48 Promyelocytes % 0 % 01/11/22 12:48 Blast Cells % 0 % 01/11/22 12:48 Nucleated RBC % Not Reportable 01/11/22 12:48 Seg Neutrophils # Bee Worker 01/11/22 12:48 Seg Neutrophils # Man 12.5 K/mm3 (1.8-7.7) H 01/11/22 12:48 Band Neutrophils # 0.1 K/mm3 01/11/22 12:48 Lymphocytes # (Manual) 0.3 K/mm3 (1.2-5.4) L 01/11/22 12:48 Abs React Lymphs (Man) 0.0 K/mm3 01/11/22 12:48 Monocytes # (Manual) 0.7 K/mm3 (0.0-0.8) 01/11/22 12:48 Eosinophils # (Manual) 0.0 K/mm3 (0.0-0.4) 01/11/22 12:48 Basophils # (Manual) 0.0 K/mm3 (0.0-0.1) 01/11/22 12:48 Metamyelocytes # 0.0 K/mm3 01/11/22 12:48 Myelocytes # 0.0 K/mm3 01/11/22 12:48 Promyelocytes # 0.0 K/mm3 01/11/22 12:48 Blast Cells # 0.0 K/mm3 01/11/22 12:48 WBC Morphology Not Reportable 01/11/22 12:48 Hypersegmented Neuts Not Reportable 01/11/22 12:48 Hyposegmented Neuts Not Reportable 01/11/22 12:48 Hypogranular Neuts Not Reportable 01/11/22 12:48 Smudge Cells Not Reportable 01/11/22 12:48 Toxic Granulation Not Reportable 01/11/22 12:48 Toxic Vacuolation Not Reportable 01/11/22 12:48 Dohle Bodies Not Reportable 01/11/22 12:48 Pelger-Huet Anomaly Not Reportable 01/11/22 12:48 Celine Rods Not Reportable 01/11/22 12:48 Platelet Estimate Consistent w auto 01/11/22 12:48 Clumped Platelets Not Reportable 01/11/22 12:48 Plt Clumps, EDTA Not Reportable 01/11/22 12:48 Large Platelets Not Reportable 01/11/22 12:48 Giant Platelets Not Reportable 01/11/22 12:48 Platelet Satelliting Not Reportable 01/11/22 12:48 Plt Morphology Comment Not Reportable 01/11/22 12:48 RBC Morphology Not Reportable 01/11/22 12:48 Dimorphic RBCs Not Reportable 01/11/22 12:48 Polychromasia Not Reportable 01/11/22 12:48 Hypochromasia 1+ 01/11/22 12:48 Poikilocytosis Not Reportable 01/11/22 12:48 Anisocytosis 2+ 01/11/22 12:48 Microcytosis Not Reportable 01/11/22 12:48 Macrocytosis Not Reportable 01/11/22 12:48 Spherocytes Not Reportable 01/11/22 12:48 Pappenheimer Bodies Not Reportable 01/11/22 12:48 Sickle Cells Not Reportable 01/11/22 12:48 Target Cells Not Reportable 01/11/22 12:48 Tear Drop Cells Not Reportable 01/11/22 12:48 Ovalocytes Not Reportable 01/11/22 12:48 Helmet Cells Not Reportable 01/11/22 12:48 Quintana-Attapulgus Bodies Not Reportable 01/11/22 12:48 Clayton Rings Not Reportable 01/11/22 12:48 Jc Cells Not Reportable 01/11/22 12:48 Bite Cells Not Reportable 01/11/22 12:48 Crenated Cell Not Reportable 01/11/22 12:48 Elliptocytes Not Reportable 01/11/22 12:48 Acanthocytes (Spur) Not Reportable 01/11/22 12:48 Rouleaux Not Reportable 01/11/22 12:48 Hemoglobin C Crystals Not Reportable 01/11/22 12:48 Schistocytes Not Reportable 01/11/22 12:48 Malaria parasites Not Reportable 01/11/22 12:48 Evans Bodies Not Reportable 01/11/22 12:48 Hem Pathologist Commnt No 01/11/22 12:48 PT 19.1 Sec. (12.2-14.9) H 01/15/22 04:19 INR 1.42 (0.87-1.13) H 01/15/22 04:19 ABG pH 7.366 pH Units (7.350-7.450) 01/13/22 15:55 ABG pCO2 32.7 mm Hg 01/13/22 15:55 ABG pO2 68.3 mm Hg (80.0-90.0) L 01/13/22 15:55 ABG HCO3 18.3 mmol/L (20.0-26.0) L 01/13/22 15:55 ABG O2 Saturation 93.6 % (95.0-99.0) L 01/13/22 15:55 ABG O2 Content 14.0 (0.0-44) 01/13/22 15:55 ABG Base Excess -6.2 mmol/L (-2.0-3.0) L 01/13/22 15:55 ABG Hemoglobin 10.8 gm/dl (12.0-16.0) L 01/13/22 15:55 ABG Carboxyhemoglobin 1.2 % (0.0-5.0) 01/13/22 15:55 ABG Methemoglobin 0.6 % (0.0-1.5) 01/13/22 15:55 Oxyhemoglobin 91.9 % (95.0-99.0) L 01/13/22 15:55 FiO2 21 % 01/13/22 15:55 Sodium 137 mmol/L (137-145) 01/15/22 04:19 Potassium 3.7 mmol/L (3.6-5.0) 01/15/22 04:19 Chloride 105.4 mmol/L (98-107) 01/15/22 04:19 Carbon Dioxide 19 mmol/L (22-30) L 01/15/22 04:19 Anion Gap 16 mmol/L 01/15/22 04:19 BUN 28 mg/dL (7-17) H 01/15/22 04:19 Creatinine 3.7 mg/dL (0.6-1.2) H 01/15/22 04:19 Estimated GFR 16 ml/min 01/15/22 04:19 BUN/Creatinine Ratio 8 % 01/15/22 04:19 Glucose 116 mg/dL (65-100) H 01/15/22 04:19 Calcium 8.6 mg/dL (8.4-10.2) 01/15/22 04:19 Magnesium 2.20 mg/dL (1.7-2.3) 01/11/22 12:48 Total Bilirubin 1.00 mg/dL (0.1-1.2) 01/15/22 04:19 Direct Bilirubin 0.8 mg/dL (0-0.2) H 01/14/22 01:06 Indirect Bilirubin 0.6 mg/dL 01/14/22 01:06 AST 215 units/L (5-40) H 01/15/22 04:19 ALT 2324 units/L (7-56) H 01/15/22 04:19 Alkaline Phosphatase 102 units/L (35-129) 01/15/22 04:19 Total Creatine Kinase 28 units/L (30-135) L 01/14/22 05:00 Total Protein 6.0 g/dL (6.3-8.2) L 01/15/22 04:19 Albumin 2.7 g/dL (3.9-5) L 01/15/22 04:19 Albumin/Globulin Ratio 0.8 % 01/15/22 04:19 Urine Color Yellow (Yellow) 01/13/22 23:10 Urine Turbidity Cloudy (Clear) 01/13/22 23:10 Urine pH 5.0 (5.0-7.0) 01/13/22 23:10 Ur Specific [place] 1.011 (1.003-1.030) 01/13/22 23:10 Urine Protein 100 mg/dl mg/dL (Negative) 01/13/22 23:10 Urine Glucose (UA) Neg mg/dL (Negative) 01/13/22 23:10 Urine Ketones Neg mg/dL (Negative) 01/13/22 23:10 Urine Blood Lg (Negative) 01/13/22 23:10 Urine Nitrite Neg (Negative) 01/13/22 23:10 Ur Reducing Substances Not Reportable 01/11/22 Unknown Urine Bilirubin Neg (Negative) 01/13/22 23:10 Urine Ictotest Not Reportable 01/11/22 Unknown Urine Urobilinogen < 2.0 mg/dL (<2.0) 01/13/22 23:10 Ur Leukocyte Esterase Neg (Negative) 01/13/22 23:10 Urine WBC (Auto) 16.0 /HPF (0.0-6.0) H 01/13/22 23:10 Urine RBC (Auto) 84.0 /HPF (0.0-6.0) 01/13/22 23:10 U Epithel Cells (Auto) 2.0 /HPF (0-13.0) 01/13/22 23:10 Urine Bacteria (Auto) 1+ /HPF (Negative) 01/13/22 23:10 Urine Mucus Few /HPF 01/13/22 23:10 Urine Yeast (Budding) 3+ /HPF 01/13/22 23:10 Urine Eosinophils Few (None Seen) 01/13/22 23:10 Urine Creatinine 107.8 mg/dL (0.1-20.0) H 01/13/22 23:10 Urine Sodium 54 mmol/L 01/13/22 23:10 Urine HCG, Qual Negative (Negative) 01/11/22 Unknown Salicylates < 0.3 mg/dL (2.8-20.0) L 01/11/22 12:48 Urine Opiates Screen Negative 01/11/22 Unknown Urine Methadone Screen Negative 01/11/22 Unknown Acetaminophen 5.0 ug/mL (10.0-30.0) L 01/14/22 01:06 Ur Barbiturates Screen Negative 01/11/22 Unknown Ur Phencyclidine Scrn Negative 01/11/22 Unknown Ur Amphetamines Screen Negative 01/11/22 Unknown U Benzodiazepines Scrn Negative 01/11/22 Unknown Urine Cocaine Screen Negative 01/11/22 Unknown U Marijuana (THC) Screen Negative 01/11/22 Unknown Drugs of Abuse Note Disclamer 01/11/22 Unknown Plasma/Serum Alcohol < 0.01 % (0-0.07) 01/11/22 12:48 Coronavirus (PCR) Negative (Negative) 01/12/22 08:25 Microbiology: Microbiology 01/13/22 23:10 Urine,Clean Catch Urine Culture - Preliminary [place]/IV: Voiding Method Toilet Active Medications - Current Medications Current Medications: Generic Name Dose Route Start Last Admin Trade Name Freq PRN Reason Stop Dose Admin Albuterol 2.5 mg 01/11/22 14:41 Albuterol 2.5 Mg/3 Ml Nebu IH Q3HRT PRN Shortness Of Breath Amlodipine Besylate 5 mg 01/15/22 12:00 01/15/22 17:26 Amlodipine 5 Mg Tab PO Not Given QDAY RIC Aripiprazole 10 mg 01/16/22 10:00 Aripiprazole 10 Mg Tab PO QDAY RIC Sodium Chloride 1,000 mls @ 125 mls/hr 01/15/22 12:00 01/16/22 02:01 Nacl 0.45% 1000 Ml IV 125 mls/hr DIRECT RIC Administration Acetylcysteine 10,000 mg/ 1,050 mls @ 66.625 mls/hr 01/16/22 06:00 01/16/22 06:23 Dextrose IV 01/16/22 21:45 66.625 mls/hr ONCE ONE Administration Mirtazapine 15 mg 01/12/22 22:00 01/15/22 21:50 Mirtazapine 15 Mg Tab PO Not Given QHS [facility] Morphine Sulfate 2 mg 01/11/22 14:41 01/14/22 20:32 Morphine 2 Mg/1 Ml Inj IV 2 mg Q12H PRN Administration Pain, Moderate (4-6) Multivitamins 1 each 01/13/22 10:00 01/15/22 09:30 Multivitamins ,Therapeutic Tab PO Not Given QDAY [facility] Ondansetron HCl 4 mg 01/11/22 22:21 01/14/22 20:32 Ondansetron 4 Mg/2 Ml Inj IV 4 mg Q8H PRN Administration Nausea And Vomiting Sertraline HCl 50 mg 01/15/22 10:00 01/15/22 09:30 Sertraline 50 Mg Tab PO Not Given QDAY [facility] Sodium Chloride 10 ml 01/11/22 22:00 01/15/22 21:51 Sodium Chloride 0.9% 10 Ml Flush Syringe IV Not Given BID RIC Sodium Chloride 10 ml 01/11/22 14:41 Sodium Chloride 0.9% 10 Ml Flush Syringe IV PRN PRN LINE FLUSH
[2022-01-16 09:27] LABS: Hematocrit 31.2 % (30.3-42.9); Hemoglobin 10.2 gm/dl (10.1-14.3); Mean Corpuscular HGB Conc 33 % (30-34); Mean Corpuscular Volume 76 fl (79-97); Platelet Count 160 K/mm3 (140-440); Red Blood Count 4.14 M/mm3 (3.65-5.03)
[2022-01-16 09:31] LABS: Red Cell Distribution Width 27.1 % (13.2-15.2)
[2022-01-16] MEDS: MULTIVITAMINS ,THERAPEUTIC TAB PO SCH (09:33)
[2022-01-16] MEDS: amLODIPine 5 MG TAB PO SCH (09:33)
[2022-01-16] MEDS: ARIPiprazole 10 MG TAB PO SCH (09:33)
[2022-01-16] MEDS: SERTRALINE 50 MG TAB PO SCH (09:33)
[2022-01-16 09:50] LABS: Albumin 2.9 g/dL (3.9-5); Bilirubin,Direct 0.3 mg/dL (0-0.2); Calcium 8.9 mg/dL (8.4-10.2)
[2022-01-16 10:09] LABS: INR 1.32 (0.87-1.13)
[2022-01-16 10:10] LABS: Partial Thromboplastin Time 38.3 Sec. (24.2-36.6)
--- NOTE | 2022-01-16 10:52 | Progress Note ---
Subjective - Reason for Consult Consult date: 01/16/22 Reason for consult: intential overdose - Chief Complaint Chief complaint: The patient was seen today. She appears withdrawn. Her affect if flat. She doesn't make any eye contact. She continues to watch t.v while I'm talking to her. She is delusional. She denies depression or SI/HI. She says she never attempted suicide although she "took 40 pills." She denies hallucinations of any kind. REVIEW OF SYSTEMS Constitutional: Negative for weight loss ENT: Negative for stridor Respiratory: Negative for cough or hemoptysis All other systems reviewed and are negative MENTAL STATUS EXAMINATION General Appearance and Behavior: Age appropriate, good hygiene, wearing appropriate clothes, calm, cooperative Cooperation: Participating, guarded Psychomotor Behavior: Tremors Mood: okay Affect and affective range: congruent with mood Thought Process: illogical Thought Content: Delusional Speech: Normal volume, Regular rate and rhythm, Suicidal Ideation: Denies Homicidal Ideation: Denies Hallucinations: Denies Delusions: Yes Impulse Control: impaired Insight and Judgment: Limited insight and judgment, Memory: Limited Attention: Normal Orientation: Alert, oriented Assessment and Plan (1) Acetaminophen Overdose (2) Major Depressive Disorder Treatment Plan 1013 Abilify 10mg po daily Remeron 15mg po qhs Increase Zoloft 50mg po daily Medical: per primary Disposition: Recommend acute psychiatric inpatient treatment Will follow. Thanks Case staffed with Dr. Cox Mental Status Exam - Vital signs Last Vital Signs Temp 98.6 F 01/16/22 05:29 Pulse 80 01/16/22 05:29 Resp 20 01/16/22 05:29 BP 165/109 01/16/22 09:33 Pulse Ox 97 01/16/22 10:05
--- NOTE | 2022-01-16 11:55 | Progress Note ---
Assessment and Plan RAUL - Continue IVF & f/u BUN/Cr CKD - [id number], continue f/u HTN - Adjust BP meds for better control Lytes - F/u labs OD - F/u Mx Subjective Date of service: 01/16/22 Principal diagnosis: Tylenol Overdose Interval history: No new complaint Objective - Vital Signs Vital signs: Vital Signs - 12hr 01/16/22 01/16/22 01/16/22 03:28 05:29 09:33 Temperature 98.6 F Pulse Rate 80 Respiratory 20 Rate Blood Pressure 167/92 165/109 O2 Sat by Pulse 98 95 Oximetry 01/16/22 10:05 Temperature Pulse Rate Respiratory Rate Blood Pressure O2 Sat by Pulse 97 Oximetry - General Appearance General appearance: obese EENT: PERRL Neck: no JVD Respiratory: Present: Other (Good air entry) Cardiology: regular, S1S2 Gastrointestinal: normal Neurologic: no focal deficit - Lab 01/16/22 09:11 01/16/22 09:11 Most recent lab results ABG pH 7.366 pH Units (7.350-7.450) 01/13/22 15:55 ABG pCO2 32.7 mm Hg 01/13/22 15:55 ABG pO2 68.3 mm Hg (80.0-90.0) L 01/13/22 15:55 ABG HCO3 18.3 mmol/L (20.0-26.0) L 01/13/22 15:55 ABG O2 Saturation 93.6 % (95.0-99.0) L 01/13/22 15:55 Calcium 8.9 mg/dL (8.4-10.2) 01/16/22 09:11 Phosphorus 2.90 mg/dL (2.5-4.5) 01/16/22 09:11 Magnesium 1.70 mg/dL (1.7-2.3) 01/16/22 09:11 Urine Creatinine 107.8 mg/dL (0.1-20.0) H 01/13/22 23:10 Urine Sodium 54 mmol/L 01/13/22 23:10 Medications & Allergies - Medications Allergies/Adverse Reactions: Allergies aspirin Allergy (Verified 01/11/22 12:34) Unknown NSAIDS (Non-Steroidal Anti-Inflamma Allergy (Verified 01/11/22 12:34) Unknown Penicillins Allergy (Verified 01/11/22 12:34) Anaphylaxis Home Medications: Home Medications Medication Instructions Recorded Confirmed Last Taken Type Acetaminophen [Acetaminophen TAB] 325 mg PO Q4H PRN #6 tablet 03/06/20 Unknown Rx Metoprolol [Lopressor TAB] 100 mg PO BID #60 tablet 03/06/20 Unknown Rx Sertraline [Zoloft] 50 mg PO QDAY #30 tablet 03/06/20 Unknown Rx amLODIPine 10 mg PO QDAY #30 tablet 03/06/20 Unknown Rx buPROPion [Wellbutrin] 100 mg PO BID #60 tablet 03/06/20 Unknown Rx Active Medications: Generic Name Dose Route Start Last Admin Trade Name Freq PRN Reason Stop Dose Admin Albuterol 2.5 mg 01/11/22 14:41 Albuterol 2.5 Mg/3 Ml Nebu IH Q3HRT PRN Shortness Of Breath Amlodipine Besylate 5 mg 01/15/22 12:00 01/16/22 09:33 Amlodipine 5 Mg Tab PO 5 mg QDAY RIC Administration Aripiprazole 10 mg 01/16/22 10:00 01/16/22 09:33 Aripiprazole 10 Mg Tab PO 10 mg QDAY RIC Administration Sodium Chloride 1,000 mls @ 125 mls/hr 01/15/22 12:00 01/16/22 02:01 Nacl 0.45% 1000 Ml IV 125 mls/hr DIRECT RIC Administration Acetylcysteine 10,000 mg/ 1,050 mls @ 66.625 mls/hr 01/16/22 06:00 01/16/22 06:23 Dextrose IV 01/16/22 21:45 66.625 mls/hr ONCE ONE Administration Mirtazapine 15 mg 01/12/22 22:00 01/15/22 21:50 Mirtazapine 15 Mg Tab PO Not Given QHS RIC Morphine Sulfate 2 mg 01/11/22 14:41 01/14/22 20:32 Morphine 2 Mg/1 Ml Inj IV 2 mg Q12H PRN Administration Pain, Moderate (4-6) Multivitamins 1 each 01/13/22 10:00 01/16/22 09:33 Multivitamins ,Therapeutic Tab PO 1 each QDAY RIC Administration Ondansetron HCl 4 mg 01/11/22 22:21 01/14/22 20:32 Ondansetron 4 Mg/2 Ml Inj IV 4 mg Q8H PRN Administration Nausea And Vomiting Sertraline HCl 50 mg 01/15/22 10:00 01/16/22 09:33 Sertraline 50 Mg Tab PO 50 mg QDAY RIC Administration Sodium Chloride 10 ml 01/11/22 22:00 01/16/22 09:34 Sodium Chloride 0.9% 10 Ml Flush Syringe IV 10 ml BID RIC Administration Sodium Chloride 10 ml 01/11/22 14:41 Sodium Chloride 0.9% 10 Ml Flush Syringe IV PRN PRN LINE FLUSH
[2022-01-16] MEDS ORDERED: amLODIPine 5 MG TAB PO SCH (11:59)
[2022-01-16] MEDS: amLODIPine 10 MG TAB PO SCH (14:43)
[2022-01-16 19:50] LABS: INR 1.35 (0.87-1.13)
[2022-01-16 20:14] LABS: Alanine Aminotransferase 1177 units/L (7-56)
[2022-01-16] MEDS: MIRTAZAPINE 15 MG TAB PO SCH (21:22)
[2022-01-16] MEDS: ACETADOTE(ACETYLCYSTEINE IV) 5,000 MG in DEXTROSE 5% IN WATER 500 ML IV SCH (23:54)
[2022-01-17 07:37] LABS: Hematocrit 28.9 % (30.3-42.9); Hemoglobin 9.6 gm/dl (10.1-14.3); Mean Corpuscular HGB Conc 33 % (30-34); Mean Corpuscular Volume 75 fl (79-97); Platelet Count 165 K/mm3 (140-440); Red Blood Count 3.86 M/mm3 (3.65-5.03)
[2022-01-17 07:48] LABS: INR 1.22 (0.87-1.13)
[2022-01-17 07:55] LABS: Albumin 2.8 g/dL (3.9-5); Calcium 8.7 mg/dL (8.4-10.2)
[2022-01-17 08:47] LABS: Anisocytosis 3+; Band Neutrophils # (Manual) 0.1 K/mm3; Hypochromasia 2+; Total Cells Counted 100
[2022-01-17 08:48] LABS: Platelet Estimate Consistent w Auto
[2022-01-17] MEDS: ACETADOTE(ACETYLCYSTEINE IV) 5,000 MG in DEXTROSE 5% IN WATER 500 ML IV SCH (10:10)
[2022-01-17] MEDS: ARIPiprazole 10 MG TAB PO SCH (10:11)
[2022-01-17] MEDS: amLODIPine 10 MG TAB PO SCH (10:11)
[2022-01-17] MEDS: SERTRALINE 50 MG TAB PO SCH (10:11)
[2022-01-17] MEDS: MULTIVITAMINS ,THERAPEUTIC TAB PO SCH (10:11)
--- NOTE | 2022-01-17 13:36 | Progress Note ---
Assessment and Plan Assessment and plan: #Suicide attempt by drug overdose #Tylenol toxicity -poison control contacted, continue acetadone until AST & ALT <100 -AST/ALT, INR downtrending -avoid tylenol -[address] #SIRS (systemic inflammatory response syndrome) -infection ruled out -likely 2/2 to above #RAUL (acute kidney injury) -no baseline SCr, likely has CKD stage IV -continue IVFs for now -Nephrology following -avoid nephrotoxic agents, renal dose all medications #Paranoid schizophrenia -Psychiatry following -continue sertraline, abilify and remeron #Hypertension #Medication counseling -Time:+10 mins -patient with poor insight and refusing BP medications -counseled about importance of BP control, increased risk of DC, stroke, and worsening kidney disease -continue daily encouragement to take BP medications -continue amlodipine #Morbid obesity -BMI 45.5% #Hyperbliribunemia #Secondary coagulopathy -INR downtrended to 1.22 -resolved, likely 2/2 to tylenol toxicity #Advance care planning -Disease education conducted, care plan discussed, diagnoses discussed, prognosis discussed, patient is full code. Patient family knowledge understanding and agreed with care plan, +30 minutes. Disposition Plan: inpatient psychiatry History Interval history: No acute events overnight. Patient refusing blood pressure medications again. She is also concerned that she was told that she has diabetes. Patient counseled and all questions answered. She reports no symptoms at this time. Hospitalist Physical - Physical exam Narrative exam: GENERAL: Well-developed well-nourished. Sitting on the side of the bed in no acute distress. HEENT: Normocephalic. Atraumatic. NECK: Supple. CHEST/LUNGS: CTAB on room air HEART/CARDIOVASCULAR: RRR. No murmur, rubs or gallops appreciated. ABDOMEN: +BS. NT/ND. SKIN: No rashes noted. NEURO: No focal motor deficit. Follows all commands and is ambulatory. MUSCULOSKELETAL: No joint effusion EXTREMITIES: No cyanosis, clubbing or edema. PSYCH: Cooperative. Poor insight. - Constitutional Vitals: Temp Pulse Resp BP Pulse Ox 98.0 F 83 18 196/107 100 01/17/22 10:33 01/17/22 10:33 01/17/22 10:33 01/17/22 10:33 01/17/22 10:33 General appearance: Present: mild distress Results - Labs CBC & Chem 7: 01/17/22 07:14 01/17/22 07:14 Labs: Laboratory Last Values WBC 5.2 K/mm3 (4.5-11.0) 01/17/22 07:14 RBC 3.86 M/mm3 (3.65-5.03) 01/17/22 07:14 Hgb 9.6 gm/dl (10.1-14.3) L 01/17/22 07:14 Hct 28.9 % (30.3-42.9) L 01/17/22 07:14 MCV 75 fl (79-97) L 01/17/22 07:14 MCH 25 pg (28-32) L 01/17/22 07:14 MCHC 33 % (30-34) 01/17/22 07:14 RDW 27.0 % (13.2-15.2) H 01/17/22 07:14 Plt Count 165 K/mm3 (140-440) 01/17/22 07:14 [place] % (Auto) [employer] Guidance Counselor 01/11/22 12:48 Eos % (Auto) Career And Guidance Counselor 01/11/22 12:48 [place] # (Auto) Career And Guidance Counselor 01/11/22 12:48 Eos # (Auto) Career And Guidance Counselor 01/11/22 12:48 Baso # (Auto) Career And Guidance Counselor 01/11/22 12:48 Add Manual Diff Complete 01/17/22 07:14 Total Counted 100 01/17/22 07:14 Seg Neuts % (Manual) 70.0 % (40.0-70.0) 01/17/22 07:14 Band Neutrophils % 1.0 % 01/17/22 07:14 Lymphocytes % (Manual) 14.0 % (13.4-35.0) 01/17/22 07:14 Reactive Lymphs % (Man) 2.0 % 01/17/22 07:14 Monocytes % (Manual) 5.0 % (0.0-7.3) 01/17/22 07:14 Eosinophils % (Manual) 6.0 % (0.0-4.3) H 01/17/22 07:14 Basophils % (Manual) 2.0 % (0.0-1.8) H 01/17/22 07:14 Metamyelocytes % 0 % 01/17/22 07:14 Myelocytes % 0 % 01/17/22 07:14 Promyelocytes % 0 % 01/17/22 07:14 Blast Cells % 0 % 01/17/22 07:14 Nucleated RBC % Not Reportable 01/17/22 07:14 Seg Neutrophils # Career And Guidance Counselor 01/11/22 12:48 Seg Neutrophils # Man 3.6 K/mm3 (1.8-7.7) 01/17/22 07:14 Band Neutrophils # 0.1 K/mm3 01/17/22 07:14 Lymphocytes # (Manual) 0.7 K/mm3 (1.2-5.4) L 01/17/22 07:14 Abs React Lymphs (Man) 0.1 K/mm3 01/17/22 07:14 Monocytes # (Manual) 0.3 K/mm3 (0.0-0.8) 01/17/22 07:14 Eosinophils # (Manual) 0.3 K/mm3 (0.0-0.4) 01/17/22 07:14 Basophils # (Manual) 0.1 K/mm3 (0.0-0.1) 01/17/22 07:14 Metamyelocytes # 0.0 K/mm3 01/17/22 07:14 Myelocytes # 0.0 K/mm3 01/17/22 07:14 Promyelocytes # 0.0 K/mm3 01/17/22 07:14 Blast Cells # 0.0 K/mm3 01/17/22 07:14 WBC Morphology Not Reportable 01/17/22 07:14 Hypersegmented Neuts Not Reportable 01/17/22 07:14 Hyposegmented Neuts Not Reportable 01/17/22 07:14 Hypogranular Neuts Not Reportable 01/17/22 07:14 Smudge Cells Not Reportable 01/17/22 07:14 Toxic Granulation Not Reportable 01/17/22 07:14 Toxic Vacuolation Not Reportable 01/17/22 07:14 Dohle Bodies Not Reportable 01/17/22 07:14 Pelger-Huet Anomaly Not Reportable 01/17/22 07:14 Celine Rods Not Reportable 01/17/22 07:14 Platelet Estimate Consistent w auto 01/17/22 07:14 Clumped Platelets Not Reportable 01/17/22 07:14 Plt Clumps, EDTA Not Reportable 01/17/22 07:14 Large Platelets Not Reportable 01/17/22 07:14 Giant Platelets Not Reportable 01/17/22 07:14 Platelet Satelliting Not Reportable 01/17/22 07:14 Plt Morphology Comment Not Reportable 01/17/22 07:14 RBC Morphology Not Reportable 01/17/22 07:14 Dimorphic RBCs Not Reportable 01/17/22 07:14 Polychromasia Not Reportable 01/17/22 07:14 Hypochromasia 2+ 01/17/22 07:14 Poikilocytosis Not Reportable 01/17/22 07:14 Anisocytosis 3+ 01/17/22 07:14 Microcytosis Not Reportable 01/17/22 07:14 Macrocytosis Not Reportable 01/17/22 07:14 Spherocytes Not Reportable 01/17/22 07:14 Pappenheimer Bodies Not Reportable 01/17/22 07:14 Sickle Cells Not Reportable 01/17/22 07:14 Target Cells Not Reportable 01/17/22 07:14 Tear Drop Cells Not Reportable 01/17/22 07:14 Ovalocytes Not Reportable 01/17/22 07:14 Helmet Cells Not Reportable 01/17/22 07:14 Quintana-Trainer Bodies Not Reportable 01/17/22 07:14 [place] Rings Not Reportable 01/17/22 07:14 [place] Cells Not Reportable 01/17/22 07:14 Bite Cells Not Reportable 01/17/22 07:14 Crenated Cell Not Reportable 01/17/22 07:14 Elliptocytes Not Reportable 01/17/22 07:14 Acanthocytes (Spur) Not Reportable 01/17/22 07:14 Rouleaux Not Reportable 01/17/22 07:14 Hemoglobin C Crystals Not Reportable 01/17/22 07:14 Schistocytes Not Reportable 01/17/22 07:14 Malaria parasites Not Reportable 01/17/22 07:14 Evans Bodies Not Reportable 01/17/22 07:14 Hem Pathologist Commnt No 01/17/22 07:14 PT 16.8 Sec. (12.2-14.9) H 01/17/22 07:14 INR 1.22 (0.87-1.13) H 01/17/22 07:14 APTT 38.3 Sec. (24.2-36.6) H 01/16/22 09:11 ABG pH 7.366 pH Units (7.350-7.450) 01/13/22 15:55 ABG pCO2 32.7 mm Hg 01/13/22 15:55 ABG pO2 68.3 mm Hg (80.0-90.0) L 01/13/22 15:55 ABG HCO3 18.3 mmol/L (20.0-26.0) L 01/13/22 15:55 ABG O2 Saturation 93.6 % (95.0-99.0) L 01/13/22 15:55 ABG O2 Content 14.0 (0.0-44) 01/13/22 15:55 ABG Base Excess -6.2 mmol/L (-2.0-3.0) L 01/13/22 15:55 ABG Hemoglobin 10.8 gm/dl (12.0-16.0) L 01/13/22 15:55 ABG Carboxyhemoglobin 1.2 % (0.0-5.0) 01/13/22 15:55 ABG Methemoglobin 0.6 % (0.0-1.5) 01/13/22 15:55 Oxyhemoglobin 91.9 % (95.0-99.0) L 01/13/22 15:55 FiO2 21 % 01/13/22 15:55 Sodium 143 mmol/L (137-145) 01/17/22 07:14 Potassium 3.8 mmol/L (3.6-5.0) 01/17/22 07:14 Chloride 108.1 mmol/L (98-107) H 01/17/22 07:14 Carbon Dioxide 17 mmol/L (22-30) L 01/17/22 07:14 Anion Gap 22 mmol/L 01/17/22 07:14 BUN 27 mg/dL (7-17) H 01/17/22 07:14 Creatinine 3.0 mg/dL (0.6-1.2) H 01/17/22 07:14 Estimated GFR 21 ml/min 01/17/22 07:14 BUN/Creatinine Ratio 9 % 01/17/22 07:14 Glucose 103 mg/dL (65-100) H 01/17/22 07:14 Calcium 8.7 mg/dL (8.4-10.2) 01/17/22 07:14 Phosphorus 2.90 mg/dL (2.5-4.5) 01/16/22 09:11 Magnesium 1.70 mg/dL (1.7-2.3) 01/16/22 09:11 Total Bilirubin 0.50 mg/dL (0.1-1.2) 01/17/22 07:14 Direct Bilirubin 0.3 mg/dL (0-0.2) H 01/16/22 09:11 Indirect Bilirubin 0.6 mg/dL 01/14/22 01:06 AST 32 units/L (5-40) 01/17/22 07:14 ALT 932 units/L (7-56) H 01/17/22 07:14 Alkaline Phosphatase 87 units/L (35-129) 01/17/22 07:14 Total Creatine Kinase 28 units/L (30-135) L 01/14/22 05:00 Total Protein 6.4 g/dL (6.3-8.2) 01/17/22 07:14 Albumin 2.8 g/dL (3.9-5) L 01/17/22 07:14 Albumin/Globulin Ratio 0.8 % 01/17/22 07:14 Urine Color Yellow (Yellow) 01/13/22 23:10 Urine Turbidity Cloudy (Clear) 01/13/22 23:10 Urine pH 5.0 (5.0-7.0) 01/13/22 23:10 Ur Specific [place] 1.011 (1.003-1.030) 01/13/22 23:10 Urine Protein 100 mg/dl mg/dL (Negative) 01/13/22 23:10 Urine Glucose (UA) Neg mg/dL (Negative) 01/13/22 23:10 Urine Ketones Neg mg/dL (Negative) 01/13/22 23:10 Urine Blood Lg (Negative) 01/13/22 23:10 Urine Nitrite Neg (Negative) 01/13/22 23:10 Ur Reducing Substances Not Reportable 01/11/22 Unknown Urine Bilirubin Neg (Negative) 01/13/22 23:10 Urine Ictotest Not Reportable 01/11/22 Unknown Urine Urobilinogen < 2.0 mg/dL (<2.0) 01/13/22 23:10 Ur Leukocyte Esterase Neg (Negative) 01/13/22 23:10 Urine WBC (Auto) 16.0 /HPF (0.0-6.0) H 01/13/22 23:10 Urine RBC (Auto) 84.0 /HPF (0.0-6.0) 01/13/22 23:10 U Epithel Cells (Auto) 2.0 /HPF (0-13.0) 01/13/22 23:10 Urine Bacteria (Auto) 1+ /HPF (Negative) 01/13/22 23:10 Urine Mucus Few /HPF 01/13/22 23:10 Urine Yeast (Budding) 3+ /HPF 01/13/22 23:10 Urine Eosinophils Few (None Seen) 01/13/22 23:10 Urine Creatinine 107.8 mg/dL (0.1-20.0) H 01/13/22 23:10 Urine Sodium 54 mmol/L 01/13/22 23:10 Urine HCG, Qual Negative (Negative) 01/11/22 Unknown Salicylates < 0.3 mg/dL (2.8-20.0) L 01/11/22 12:48 Urine Opiates Screen Negative 01/11/22 Unknown Urine Methadone Screen Negative 01/11/22 Unknown Acetaminophen 5.0 ug/mL (10.0-30.0) L 01/14/22 01:06 Ur Barbiturates Screen Negative 01/11/22 Unknown Ur Phencyclidine Scrn Negative 01/11/22 Unknown Ur Amphetamines Screen Negative 01/11/22 Unknown U Benzodiazepines Scrn Negative 01/11/22 Unknown Urine Cocaine Screen Negative 01/11/22 Unknown U Marijuana (THC) Screen Negative 01/11/22 Unknown Drugs of Abuse Note Disclamer 01/11/22 Unknown Plasma/Serum Alcohol < 0.01 % (0-0.07) 01/11/22 12:48 Coronavirus (PCR) Negative (Negative) 01/12/22 08:25 Microbiology: Microbiology 01/13/22 23:10 Urine,Clean Catch Urine Culture - Final [place]/IV: Voiding Method Toilet Active Medications - Current Medications Current Medications: Generic Name Dose Route Start Last Admin Trade Name Freq PRN Reason Stop Dose Admin Albuterol 2.5 mg 01/11/22 14:41 Albuterol 2.5 Mg/3 Ml Nebu IH Q3HRT PRN Shortness Of Breath Amlodipine Besylate 10 mg 01/16/22 12:00 01/17/22 10:11 Amlodipine 10 Mg Tab PO Not Given DAILY RIC Aripiprazole 10 mg 01/16/22 10:00 01/17/22 10:11 Aripiprazole 10 Mg Tab PO Not Given QDAY RIC Sodium Chloride 1,000 mls @ 125 mls/hr 01/15/22 12:00 01/16/22 02:01 Nacl 0.45% 1000 Ml IV 125 mls/hr DIRECT RIC Administration Acetylcysteine 5,000 mg/ 525 mls @ 65.625 mls/hr 01/17/22 00:00 01/17/22 10:10 Dextrose IV 01/18/22 07:59 65.625 mls/hr DIRECT RIC Administration Mirtazapine 15 mg 01/12/22 22:00 01/16/22 21:22 Mirtazapine 15 Mg Tab PO Not Given QHS [facility] Morphine Sulfate 2 mg 01/11/22 14:41 01/14/22 20:32 Morphine 2 Mg/1 Ml Inj IV 2 mg Q12H PRN Administration Pain, Moderate (4-6) Multivitamins 1 each 01/13/22 10:00 01/17/22 10:11 Multivitamins ,Therapeutic Tab PO Not Given QDAY [facility] Ondansetron HCl 4 mg 01/11/22 22:21 01/14/22 20:32 Ondansetron 4 Mg/2 Ml Inj IV 4 mg Q8H PRN Administration Nausea And Vomiting Sertraline HCl 50 mg 01/15/22 10:00 01/17/22 10:11 Sertraline 50 Mg Tab PO Not Given QDAY RIC Sodium Chloride 10 ml 01/11/22 22:00 01/17/22 10:11 Sodium Chloride 0.9% 10 Ml Flush Syringe IV 10 ml BID RIC Administration Sodium Chloride 10 ml 01/11/22 14:41 Sodium Chloride 0.9% 10 Ml Flush Syringe IV PRN PRN LINE FLUSH
--- NOTE | 2022-01-17 14:24 | Progress Note ---
Assessment and Plan 1. Acute kidney injury: Vasomotor RAUL in the setting of hypotension / volume depletion. Renal US negative for hydro. Most likely ATN. Continue IV fluids. Monitor renal function. Creatinine level improving. Avoid nephrotoxic agents. Meds dosage based on GFR. 2. FEN: Hyperchloremic metabolic acidosis, monitor. Monitor lytes and volume status. 3. Acetaminophen OD / toxicity: S/p N-actylcysteine. Monitor labs. 4. Paranoid schizophrenia: Supportive care. 5. Hyperglycemia: Monitor. 6. Hypertension: IV fluids decreased. Adjust meds as needed. Will sign off. Subjective: Patient was seen and examined at the bedside. Nursing staff at the bedside. Patient refused any exam other than talking. Examination: General appearance: well-developed, appears stated age, not in distress, morbidly obese HEENT: atraumatic Neck: pt refused Respiratory: pt refused Heart: pt refused Abdomen: pt refused Integumentary: no obvious rash Neurologic: AO, able to move extremities Ext: no obvious edema noted Subjective Date of service: 01/17/22 Principal diagnosis: Tylenol Overdose Objective - Vital Signs Vital signs: Vital Signs - 12hr 01/17/22 01/17/22 01/17/22 05:46 10:00 10:11 Temperature 98.9 F Pulse Rate 96 H 84 Respiratory 16 Rate Blood Pressure 160/101 196/107 O2 Sat by Pulse 99 96 Oximetry 01/17/22 10:33 Temperature 98.0 F Pulse Rate 83 Respiratory 18 Rate Blood Pressure 196/107 O2 Sat by Pulse 100 Oximetry - Lab 01/17/22 07:14 01/17/22 07:14 Most recent lab results ABG pH 7.366 pH Units (7.350-7.450) 01/13/22 15:55 ABG pCO2 32.7 mm Hg 01/13/22 15:55 ABG pO2 68.3 mm Hg (80.0-90.0) L 01/13/22 15:55 ABG HCO3 18.3 mmol/L (20.0-26.0) L 01/13/22 15:55 ABG O2 Saturation 93.6 % (95.0-99.0) L 01/13/22 15:55 Calcium 8.7 mg/dL (8.4-10.2) 01/17/22 07:14 Phosphorus 2.90 mg/dL (2.5-4.5) 01/16/22 09:11 Magnesium 1.70 mg/dL (1.7-2.3) 01/16/22 09:11 Urine Creatinine 107.8 mg/dL (0.1-20.0) H 01/13/22 23:10 Urine Sodium 54 mmol/L 01/13/22 23:10 Medications & Allergies - Medications Allergies/Adverse Reactions: Allergies aspirin Allergy (Verified 01/11/22 12:34) Unknown NSAIDS (Non-Steroidal Anti-Inflamma Allergy (Verified 01/11/22 12:34) Unknown Penicillins Allergy (Verified 01/11/22 12:34) Anaphylaxis Home Medications: Home Medications Medication Instructions Recorded Confirmed Last Taken Type Acetaminophen [Acetaminophen TAB] 325 mg PO Q4H PRN #6 tablet 03/06/20 Unknown Rx Metoprolol [Lopressor TAB] 100 mg PO BID #60 tablet 03/06/20 Unknown Rx Sertraline [Zoloft] 50 mg PO QDAY #30 tablet 03/06/20 Unknown Rx amLODIPine 10 mg PO QDAY #30 tablet 03/06/20 Unknown Rx buPROPion [Wellbutrin] 100 mg PO BID #60 tablet 03/06/20 Unknown Rx Active Medications: Generic Name Dose Route Start Last Admin Trade Name Freq PRN Reason Stop Dose Admin Albuterol 2.5 mg 01/11/22 14:41 Albuterol 2.5 Mg/3 Ml Nebu IH Q3HRT PRN Shortness Of Breath Amlodipine Besylate 10 mg 01/16/22 12:00 01/17/22 10:11 Amlodipine 10 Mg Tab PO Not Given DAILY RIC Aripiprazole 10 mg 01/16/22 10:00 01/17/22 10:11 Aripiprazole 10 Mg Tab PO Not Given QDAY RIC Sodium Chloride 1,000 mls @ 125 mls/hr 01/15/22 12:00 01/16/22 02:01 Nacl 0.45% 1000 Ml IV 125 mls/hr DIRECT RIC Administration Acetylcysteine 5,000 mg/ 525 mls @ 65.625 mls/hr 01/17/22 00:00 01/17/22 10:10 Dextrose IV 01/18/22 07:59 65.625 mls/hr DIRECT RIC Administration Mirtazapine 15 mg 01/12/22 22:00 01/16/22 21:22 Mirtazapine 15 Mg Tab PO Not Given QHS [facility] Morphine Sulfate 2 mg 01/11/22 14:41 01/14/22 20:32 Morphine 2 Mg/1 Ml Inj IV 2 mg Q12H PRN Administration Pain, Moderate (4-6) Multivitamins 1 each 01/13/22 10:00 01/17/22 10:11 Multivitamins ,Therapeutic Tab PO Not Given QDAY [facility] Ondansetron HCl 4 mg 01/11/22 22:21 01/14/22 20:32 Ondansetron 4 Mg/2 Ml Inj IV 4 mg Q8H PRN Administration Nausea And Vomiting Sertraline HCl 50 mg 01/15/22 10:00 01/17/22 10:11 Sertraline 50 Mg Tab PO Not Given QDAY RIC Sodium Chloride 10 ml 01/11/22 22:00 01/17/22 10:11 Sodium Chloride 0.9% 10 Ml Flush Syringe IV 10 ml BID RIC Administration Sodium Chloride 10 ml 01/11/22 14:41 Sodium Chloride 0.9% 10 Ml Flush Syringe IV PRN PRN LINE FLUSH
[2022-01-17] MEDS ORDERED: hydrALAZINE 20 MG/1 ML INJ IV PRN (17:00)
[2022-01-17] MEDS ORDERED: POLYETHYLENE GLYCOL 3350 17 GM POWDER PO PRN (17:47)
[2022-01-17] MEDS: MIRTAZAPINE 15 MG TAB PO SCH (21:55)
[2022-01-18 08:55] LABS: Albumin 3.3 g/dL (3.9-5); Calcium 8.9 mg/dL (8.4-10.2)
[2022-01-18] MEDS: MULTIVITAMINS ,THERAPEUTIC TAB PO SCH (10:14)
[2022-01-18] MEDS: ARIPiprazole 10 MG TAB PO SCH (10:14)
[2022-01-18] MEDS: SERTRALINE 50 MG TAB PO SCH (10:14)
[2022-01-18] MEDS: NIFEdipine XL 30 MG TAB PO SCH (10:14)
--- NOTE | 2022-01-18 11:15 | Progress Note ---
Subjective - Reason for Consult Consult date: 01/18/22 Reason for consult: suicidal attempt - Chief Complaint Chief complaint: The patient was seen today. She continues to be withdrawn. The patient states she is doing well. She denies being depressed and denies any current suicidal/homicidal ideation and denies hallucinations. Per nurse, the patient is refusing medications. REVIEW OF SYSTEMS Constitutional: Negative for weight loss ENT: Negative for stridor Respiratory: Negative for cough or hemoptysis All other systems reviewed and are negative MENTAL STATUS EXAMINATION General Appearance and Behavior: Age appropriate, good hygiene, wearing appropriate clothes, calm, cooperative Cooperation: Participating, guarded Psychomotor Behavior: Normal Mood: "fine" Affect and affective range: flat Thought Process: illogical Thought Content: Delusional Speech: Normal volume, Regular rate and rhythm, Suicidal Ideation: Denies Homicidal Ideation: Denies Hallucinations: Denies Delusions: Yes Impulse Control: impaired Insight and Judgment: Limited insight and judgment, Memory: Limited Attention: Normal Orientation: Alert, oriented Assessment and Plan (1) Major Depressive Disorder Treatment Plan 1013 Abilify 10mg po daily Remeron 15mg po qhs Increase Zoloft 50mg po daily Medical: per primary Disposition: Recommend acute psychiatric inpatient treatment Will follow. Thanks Case staffed with Dr. Cox Mental Status Exam - Vital signs Last Vital Signs Temp 98.2 F 01/18/22 05:43 Pulse 80 01/18/22 05:43 Resp 20 01/18/22 05:43 BP 154/74 01/18/22 05:43 Pulse Ox 94 01/18/22 10:00
--- NOTE | 2022-01-18 11:22 | Progress Note ---
Assessment and Plan Assessment and plan: #Suicide attempt by drug overdose #Tylenol toxicityimproving -poison control contacted, continue acetadone until AST & ALT <100 -AST/ALT, INR downtrending -avoid tylenol -[address] #SIRS (systemic inflammatory response syndrome)resolved -infection ruled out -likely 2/2 to above #RAUL (acute kidney injury)improving -no baseline SCr, likely has CKD stage IV -continue IVFs for now -Nephrology following -avoid nephrotoxic agents, renal dose all medications #Paranoid schizophrenia -Psychiatry following; appreciate recs Continue Abilify 10 mg daily, Remeron 15 mg nightly, Zoloft 50 mg daily #Hypertension #Medication counseling -Time:+10 mins -patient with poor insight and refusing BP medications -counseled about importance of BP control, increased risk of VT, stroke, and worsening kidney disease -continue daily encouragement to take BP medications -continue nifedipine 30 mg daily--> patient refusing medications #Obesity #Weight loss counseling #Exercise counseling - BMI 45.5 - Counseled patient on the importance of weight loss, incorporating exercise, and dietary changes (lean meats, fresh fruits and vegetables, and water intake). Patient expresses understanding. - Time: +10 min #Hyperbilirubinemiaimproving #Secondary coagulopathy -INR downtrended to 1.22 -resolved, likely 2/2 to tylenol toxicity #Advance care planning -Disease education conducted, care plan discussed, diagnoses discussed, prognosis discussed, patient is full code. Patient family knowledge understanding and agreed with care plan, +30 minutes. Disposition Plan: Continue medical management Total Time Spent with Patient (Minutes): 30 minutes History Interval history: No acute events overnight. Hospitalist Physical - Constitutional Vitals: Temp Pulse Resp BP Pulse Ox 98.2 F 80 20 154/74 94 01/18/22 05:43 01/18/22 05:43 01/18/22 05:43 01/18/22 05:43 01/18/22 10:00 General appearance: Present: no acute distress, well-nourished, obese - EENT Eyes: Present: PERRL, EOM intact ENT: hearing intact, clear oral mucosa, dentition normal - Neck Neck: Present: supple, normal ROM - Respiratory Respiratory effort: normal Respiratory: bilateral: CTA - Cardiovascular Rhythm: regular Heart Sounds: Present: S1 & S2 - Extremities Extremities: no ischemia, pulses intact, pulses symmetrical, No edema, normal temperature, normal color, Full ROM Peripheral Pulses: within normal limits - Abdominal General gastrointestinal: soft, non-tender, non-distended, normal bowel sounds - Integumentary Integumentary: Present: clear, warm, dry - Psychiatric Psychiatric: appropriate mood/affect, depressed - Neurologic Neurologic: CNII-XII intact, moves all extremities - Allied Health Allied health notes reviewed: nursing Results - Labs CBC & Chem 7: 01/17/22 07:14 01/18/22 07:56 Labs: Laboratory Last Values WBC 5.2 K/mm3 (4.5-11.0) 01/17/22 07:14 RBC 3.86 M/mm3 (3.65-5.03) 01/17/22 07:14 Hgb 9.6 gm/dl (10.1-14.3) L 01/17/22 07:14 Hct 28.9 % (30.3-42.9) L 01/17/22 07:14 MCV 75 fl (79-97) L 01/17/22 07:14 MCH 25 pg (28-32) L 01/17/22 07:14 MCHC 33 % (30-34) 01/17/22 07:14 RDW 27.0 % (13.2-15.2) H 01/17/22 07:14 Plt Count 165 K/mm3 (140-440) 01/17/22 07:14 Haines % (Auto) Mine Analyst 01/11/22 12:48 Eos % (Auto) Mine Analyst 01/11/22 12:48 Haines # (Auto) Mine Analyst 01/11/22 12:48 Eos # (Auto) Mine Analyst 01/11/22 12:48 Baso # (Auto) Mine Analyst 01/11/22 12:48 Add Manual Diff Complete 01/17/22 07:14 Total Counted 100 01/17/22 07:14 Seg Neuts % (Manual) 70.0 % (40.0-70.0) 01/17/22 07:14 Band Neutrophils % 1.0 % 01/17/22 07:14 Lymphocytes % (Manual) 14.0 % (13.4-35.0) 01/17/22 07:14 Reactive Lymphs % (Man) 2.0 % 01/17/22 07:14 Monocytes % (Manual) 5.0 % (0.0-7.3) 01/17/22 07:14 Eosinophils % (Manual) 6.0 % (0.0-4.3) H 01/17/22 07:14 Basophils % (Manual) 2.0 % (0.0-1.8) H 01/17/22 07:14 Metamyelocytes % 0 % 01/17/22 07:14 Myelocytes % 0 % 01/17/22 07:14 Promyelocytes % 0 % 01/17/22 07:14 Blast Cells % 0 % 01/17/22 07:14 Nucleated RBC % Not Reportable 01/17/22 07:14 Seg Neutrophils # Mine Analyst 01/11/22 12:48 Seg Neutrophils # Man 3.6 K/mm3 (1.8-7.7) 01/17/22 07:14 Band Neutrophils # 0.1 K/mm3 01/17/22 07:14 Lymphocytes # (Manual) 0.7 K/mm3 (1.2-5.4) L 01/17/22 07:14 Abs React Lymphs (Man) 0.1 K/mm3 01/17/22 07:14 Monocytes # (Manual) 0.3 K/mm3 (0.0-0.8) 01/17/22 07:14 Eosinophils # (Manual) 0.3 K/mm3 (0.0-0.4) 01/17/22 07:14 Basophils # (Manual) 0.1 K/mm3 (0.0-0.1) 01/17/22 07:14 Metamyelocytes # 0.0 K/mm3 01/17/22 07:14 Myelocytes # 0.0 K/mm3 01/17/22 07:14 Promyelocytes # 0.0 K/mm3 01/17/22 07:14 Blast Cells # 0.0 K/mm3 01/17/22 07:14 WBC Morphology Not Reportable 01/17/22 07:14 Hypersegmented Neuts Not Reportable 01/17/22 07:14 Hyposegmented Neuts Not Reportable 01/17/22 07:14 Hypogranular Neuts Not Reportable 01/17/22 07:14 Smudge Cells Not Reportable 01/17/22 07:14 Toxic Granulation Not Reportable 01/17/22 07:14 Toxic Vacuolation Not Reportable 01/17/22 07:14 Dohle Bodies Not Reportable 01/17/22 07:14 Pelger-Huet Anomaly Not Reportable 01/17/22 07:14 Celine Rods Not Reportable 01/17/22 07:14 Platelet Estimate Consistent w auto 01/17/22 07:14 Clumped Platelets Not Reportable 01/17/22 07:14 Plt Clumps, EDTA Not Reportable 01/17/22 07:14 Large Platelets Not Reportable 01/17/22 07:14 Giant Platelets Not Reportable 01/17/22 07:14 Platelet Satelliting Not Reportable 01/17/22 07:14 Plt Morphology Comment Not Reportable 01/17/22 07:14 RBC Morphology Not Reportable 01/17/22 07:14 Dimorphic RBCs Not Reportable 01/17/22 07:14 Polychromasia Not Reportable 01/17/22 07:14 Hypochromasia 2+ 01/17/22 07:14 Poikilocytosis Not Reportable 01/17/22 07:14 Anisocytosis 3+ 01/17/22 07:14 Microcytosis Not Reportable 01/17/22 07:14 Macrocytosis Not Reportable 01/17/22 07:14 Spherocytes Not Reportable 01/17/22 07:14 Pappenheimer Bodies Not Reportable 01/17/22 07:14 Sickle Cells Not Reportable 01/17/22 07:14 Target Cells Not Reportable 01/17/22 07:14 Tear Drop Cells Not Reportable 01/17/22 07:14 Ovalocytes Not Reportable 01/17/22 07:14 Helmet Cells Not Reportable 01/17/22 07:14 [place] Bodies Not Reportable 01/17/22 07:14 [place] Rings Not Reportable 01/17/22 07:14 Jc Cells Not Reportable 01/17/22 07:14 Bite Cells Not Reportable 01/17/22 07:14 Crenated Cell Not Reportable 01/17/22 07:14 Elliptocytes Not Reportable 01/17/22 07:14 Acanthocytes (Spur) Not Reportable 01/17/22 07:14 Rouleaux Not Reportable 01/17/22 07:14 Hemoglobin C Crystals Not Reportable 01/17/22 07:14 Schistocytes Not Reportable 01/17/22 07:14 Malaria parasites Not Reportable 01/17/22 07:14 Evans Bodies Not Reportable 01/17/22 07:14 Hem Pathologist Commnt No 01/17/22 07:14 PT 16.8 Sec. (12.2-14.9) H 01/17/22 07:14 INR 1.22 (0.87-1.13) H 01/17/22 07:14 APTT 38.3 Sec. (24.2-36.6) H 01/16/22 09:11 ABG pH 7.366 pH Units (7.350-7.450) 01/13/22 15:55 ABG pCO2 32.7 mm Hg 01/13/22 15:55 ABG pO2 68.3 mm Hg (80.0-90.0) L 01/13/22 15:55 ABG HCO3 18.3 mmol/L (20.0-26.0) L 01/13/22 15:55 ABG O2 Saturation 93.6 % (95.0-99.0) L 01/13/22 15:55 ABG O2 Content 14.0 (0.0-44) 01/13/22 15:55 ABG Base Excess -6.2 mmol/L (-2.0-3.0) L 01/13/22 15:55 ABG Hemoglobin 10.8 gm/dl (12.0-16.0) L 01/13/22 15:55 ABG Carboxyhemoglobin 1.2 % (0.0-5.0) 01/13/22 15:55 ABG Methemoglobin 0.6 % (0.0-1.5) 01/13/22 15:55 Oxyhemoglobin 91.9 % (95.0-99.0) L 01/13/22 15:55 FiO2 21 % 01/13/22 15:55 Sodium 141 mmol/L (137-145) 01/18/22 07:56 Potassium 3.8 mmol/L (3.6-5.0) 01/18/22 07:56 Chloride 105.7 mmol/L (98-107) 01/18/22 07:56 Carbon Dioxide 20 mmol/L (22-30) L 01/18/22 07:56 Anion Gap 19 mmol/L 01/18/22 07:56 BUN 26 mg/dL (7-17) H 01/18/22 07:56 Creatinine 2.7 mg/dL (0.6-1.2) H 01/18/22 07:56 Estimated GFR 23 ml/min 01/18/22 07:56 BUN/Creatinine Ratio 10 % 01/18/22 07:56 Glucose 105 mg/dL (65-100) H 01/18/22 07:56 Calcium 8.9 mg/dL (8.4-10.2) 01/18/22 07:56 Phosphorus 2.90 mg/dL (2.5-4.5) 01/16/22 09:11 Magnesium 1.70 mg/dL (1.7-2.3) 01/16/22 09:11 Total Bilirubin 0.60 mg/dL (0.1-1.2) 01/18/22 07:56 Direct Bilirubin 0.3 mg/dL (0-0.2) H 01/16/22 09:11 Indirect Bilirubin 0.6 mg/dL 01/14/22 01:06 AST 20 units/L (5-40) 01/18/22 07:56 ALT 671 units/L (7-56) H 01/18/22 07:56 Alkaline Phosphatase 91 units/L (35-129) 01/18/22 07:56 Total Creatine Kinase 28 units/L (30-135) L 01/14/22 05:00 Total Protein 6.5 g/dL (6.3-8.2) 01/18/22 07:56 Albumin 3.3 g/dL (3.9-5) L 01/18/22 07:56 Albumin/Globulin Ratio 1.0 % 01/18/22 07:56 Urine Color Yellow (Yellow) 01/13/22 23:10 Urine Turbidity Cloudy (Clear) 01/13/22 23:10 Urine pH 5.0 (5.0-7.0) 01/13/22 23:10 Ur Specific [place] 1.011 (1.003-1.030) 01/13/22 23:10 Urine Protein 100 mg/dl mg/dL (Negative) 01/13/22 23:10 Urine Glucose (UA) Neg mg/dL (Negative) 01/13/22 23:10 Urine Ketones Neg mg/dL (Negative) 01/13/22 23:10 Urine Blood Lg (Negative) 01/13/22 23:10 Urine Nitrite Neg (Negative) 01/13/22 23:10 Ur Reducing Substances Not Reportable 01/11/22 Unknown Urine Bilirubin Neg (Negative) 01/13/22 23:10 Urine Ictotest Not Reportable 01/11/22 Unknown Urine Urobilinogen < 2.0 mg/dL (<2.0) 01/13/22 23:10 Ur Leukocyte Esterase Neg (Negative) 01/13/22 23:10 Urine WBC (Auto) 16.0 /HPF (0.0-6.0) H 01/13/22 23:10 Urine RBC (Auto) 84.0 /HPF (0.0-6.0) 01/13/22 23:10 U Epithel Cells (Auto) 2.0 /HPF (0-13.0) 01/13/22 23:10 Urine Bacteria (Auto) 1+ /HPF (Negative) 01/13/22 23:10 Urine Mucus Few /HPF 01/13/22 23:10 Urine Yeast (Budding) 3+ /HPF 01/13/22 23:10 Urine Eosinophils Few (None Seen) 01/13/22 23:10 Urine Creatinine 107.8 mg/dL (0.1-20.0) H 01/13/22 23:10 Urine Sodium 54 mmol/L 01/13/22 23:10 Urine HCG, Qual Negative (Negative) 01/11/22 Unknown Salicylates < 0.3 mg/dL (2.8-20.0) L 01/11/22 12:48 Urine Opiates Screen Negative 01/11/22 Unknown Urine Methadone Screen Negative 01/11/22 Unknown Acetaminophen 5.0 ug/mL (10.0-30.0) L 01/14/22 01:06 Ur Barbiturates Screen Negative 01/11/22 Unknown Ur Phencyclidine Scrn Negative 01/11/22 Unknown Ur Amphetamines Screen Negative 01/11/22 Unknown U Benzodiazepines Scrn Negative 01/11/22 Unknown Urine Cocaine Screen Negative 01/11/22 Unknown U Marijuana (THC) Screen Negative 01/11/22 Unknown Drugs of Abuse Note Disclamer 01/11/22 Unknown Plasma/Serum Alcohol < 0.01 % (0-0.07) 01/11/22 12:48 Coronavirus (PCR) Negative (Negative) 01/12/22 08:25 Pino/IV: Voiding Method Toilet Active Medications - Current Medications Current Medications: Generic Name Dose Route Start Last Admin Trade Name Freq PRN Reason Stop Dose Admin Albuterol 2.5 mg 01/11/22 14:41 Albuterol 2.5 Mg/3 Ml Nebu IH Q3HRT PRN Shortness Of Breath Aripiprazole 10 mg 01/16/22 10:00 01/18/22 10:14 Aripiprazole 10 Mg Tab PO Not Given QDAY [facility] Hydralazine HCl 10 mg 01/17/22 17:00 01/17/22 17:37 Hydralazine 20 Mg/1 Ml Inj IV 10 mg Q4H PRN Administration Hypertension Mirtazapine 15 mg 01/12/22 22:00 01/17/22 21:55 Mirtazapine 15 Mg Tab PO Not Given QHS RIC Morphine Sulfate 2 mg 01/11/22 14:41 01/14/22 20:32 Morphine 2 Mg/1 Ml Inj IV 2 mg Q12H PRN Administration Pain, Moderate (4-6) Multivitamins 1 each 01/13/22 10:00 01/18/22 10:14 Multivitamins ,Therapeutic Tab PO Not Given QDAY [facility] Nifedipine 30 mg 01/18/22 10:00 01/18/22 10:14 Nifedipine Xl 30 Mg Tab PO Not Given QDAY [facility] Ondansetron HCl 4 mg 01/11/22 22:21 01/14/22 20:32 Ondansetron 4 Mg/2 Ml Inj IV 4 mg Q8H PRN Administration Nausea And Vomiting Polyethylene Glycol 17 gm 01/17/22 17:47 01/17/22 18:36 Polyethylene Glycol 3350 17 Gm Powder PO 17 gm QDAY PRN Administration Constipation Sertraline HCl 50 mg 01/15/22 10:00 01/18/22 10:14 Sertraline 50 Mg Tab PO Not Given QDAY [facility] Sodium Chloride 10 ml 01/11/22 22:00 01/18/22 10:14 Sodium Chloride 0.9% 10 Ml Flush Syringe IV Not Given BID RIC Sodium Chloride 10 ml 01/11/22 14:41 Sodium Chloride 0.9% 10 Ml Flush Syringe IV PRN PRN LINE FLUSH
[2022-01-18] MEDS: MIRTAZAPINE 15 MG TAB PO SCH (21:15)
[2022-01-19 08:03] LABS: Calcium 8.7 mg/dL (8.4-10.2)
[2022-01-19 08:49] VITALS: BP 153/83
--- NOTE | 2022-01-19 13:18 | Progress Note ---
Assessment and Plan Assessment and plan: #Suicide attempt by drug overdose #Tylenol toxicityimproving -poison control contacted, continue acetadone until AST & ALT <100 -AST/ALT, INR downtrending -avoid tylenol -[address] #SIRS (systemic inflammatory response syndrome)resolved -infection ruled out -likely 2/2 to above #RAUL (acute kidney injury)resolved -no baseline SCr, likely has CKD stage IV -continue IVFs for now -Nephrology following -avoid nephrotoxic agents, renal dose all medications #Paranoid schizophrenia -Psychiatry following; appreciate recs Continue Abilify 10 mg daily, Remeron 15 mg nightly, Zoloft 50 mg daily #Hypertension #Medication counseling -Time:+10 mins -patient with poor insight and refusing BP medications -counseled about importance of BP control, increased risk of RI, stroke, and worsening kidney disease -continue daily encouragement to take BP medications -continue nifedipine 30 mg daily--> patient refusing medications #Obesity #Weight loss counseling #Exercise counseling - BMI 45.5 - Counseled patient on the importance of weight loss, incorporating exercise, and dietary changes (lean meats, fresh fruits and vegetables, and water intake). Patient expresses understanding. - Time: +10 min #Hyperbilirubinemiaresolved #Secondary coagulopathy -INR downtrended to 1.22 -resolved, likely 2/2 to tylenol toxicity #Advance care planning -Disease education conducted, care plan discussed, diagnoses discussed, prognosis discussed, patient is full code. Patient family knowledge understanding and agreed with care plan, +30 minutes. #Discharge planning - Patient is medically clear for discharge. Currently on 1012. - Case management has been made aware. Disposition Plan: Pending acute psychiatric hospitalization Total Time Spent with Patient (Minutes): 45 minutes History Interval history: No acute events overnight. Hospitalist Physical - Constitutional Vitals: Temp Pulse Resp BP Pulse Ox 98.4 F 94 H 18 153/83 98 01/19/22 08:48 01/19/22 08:48 01/19/22 08:48 01/19/22 08:48 01/19/22 08:13 General appearance: Present: no acute distress, well-nourished, obese - EENT Eyes: Present: PERRL, EOM intact ENT: hearing intact, clear oral mucosa, dentition normal - Neck Neck: Present: supple, normal ROM - Respiratory Respiratory effort: normal - Cardiovascular Rhythm: regular Heart Sounds: Present: S1 & S2 - Extremities Extremities: no ischemia, pulses intact, pulses symmetrical, No edema, normal temperature, normal color, Full ROM Peripheral Pulses: within normal limits - Abdominal General gastrointestinal: soft, non-tender, non-distended, normal bowel sounds - Integumentary Integumentary: Present: clear, warm, dry - Psychiatric Psychiatric: depressed, other (Extremely tearful) - Neurologic Neurologic: CNII-XII intact, moves all extremities - Allied Health Allied health notes reviewed: nursing Results - Labs CBC & Chem 7: 01/17/22 07:14 01/19/22 06:48 Labs: Laboratory Last Values WBC 5.2 K/mm3 (4.5-11.0) 01/17/22 07:14 RBC 3.86 M/mm3 (3.65-5.03) 01/17/22 07:14 Hgb 9.6 gm/dl (10.1-14.3) L 01/17/22 07:14 Hct 28.9 % (30.3-42.9) L 01/17/22 07:14 MCV 75 fl (79-97) L 01/17/22 07:14 MCH 25 pg (28-32) L 01/17/22 07:14 MCHC 33 % (30-34) 01/17/22 07:14 RDW 27.0 % (13.2-15.2) H 01/17/22 07:14 Plt Count 165 K/mm3 (140-440) 01/17/22 07:14 [place] % (Auto) [employer] 01/11/22 12:48 Eos % (Auto) [employer] Crew [employer] 01/11/22 12:48 [place] # (Auto) [employer] Crew Chief 01/11/22 12:48 Eos # (Auto) [employer] Crew Chief 01/11/22 12:48 Baso # (Auto) [employer] Crew Chief 01/11/22 12:48 Add Manual Diff Complete 01/17/22 07:14 Total Counted 100 01/17/22 07:14 Seg Neuts % (Manual) 70.0 % (40.0-70.0) 01/17/22 07:14 Band Neutrophils % 1.0 % 01/17/22 07:14 Lymphocytes % (Manual) 14.0 % (13.4-35.0) 01/17/22 07:14 Reactive Lymphs % (Man) 2.0 % 01/17/22 07:14 Monocytes % (Manual) 5.0 % (0.0-7.3) 01/17/22 07:14 Eosinophils % (Manual) 6.0 % (0.0-4.3) H 01/17/22 07:14 Basophils % (Manual) 2.0 % (0.0-1.8) H 01/17/22 07:14 Metamyelocytes % 0 % 01/17/22 07:14 Myelocytes % 0 % 01/17/22 07:14 Promyelocytes % 0 % 01/17/22 07:14 Blast Cells % 0 % 01/17/22 07:14 Nucleated RBC % Not Reportable 01/17/22 07:14 Seg Neutrophils # Field Crew Chief 01/11/22 12:48 Seg Neutrophils # Man 3.6 K/mm3 (1.8-7.7) 01/17/22 07:14 Band Neutrophils # 0.1 K/mm3 01/17/22 07:14 Lymphocytes # (Manual) 0.7 K/mm3 (1.2-5.4) L 01/17/22 07:14 Abs React Lymphs (Man) 0.1 K/mm3 01/17/22 07:14 Monocytes # (Manual) 0.3 K/mm3 (0.0-0.8) 01/17/22 07:14 Eosinophils # (Manual) 0.3 K/mm3 (0.0-0.4) 01/17/22 07:14 Basophils # (Manual) 0.1 K/mm3 (0.0-0.1) 01/17/22 07:14 Metamyelocytes # 0.0 K/mm3 01/17/22 07:14 Myelocytes # 0.0 K/mm3 01/17/22 07:14 Promyelocytes # 0.0 K/mm3 01/17/22 07:14 Blast Cells # 0.0 K/mm3 01/17/22 07:14 WBC Morphology Not Reportable 01/17/22 07:14 Hypersegmented Neuts Not Reportable 01/17/22 07:14 Hyposegmented Neuts Not Reportable 01/17/22 07:14 Hypogranular Neuts Not Reportable 01/17/22 07:14 Smudge Cells Not Reportable 01/17/22 07:14 Toxic Granulation Not Reportable 01/17/22 07:14 Toxic Vacuolation Not Reportable 01/17/22 07:14 Dohle Bodies Not Reportable 01/17/22 07:14 Pelger-Huet Anomaly Not Reportable 01/17/22 07:14 Celine Rods Not Reportable 01/17/22 07:14 Platelet Estimate Consistent w auto 01/17/22 07:14 Clumped Platelets Not Reportable 01/17/22 07:14 Plt Clumps, EDTA Not Reportable 01/17/22 07:14 Large Platelets Not Reportable 01/17/22 07:14 Giant Platelets Not Reportable 01/17/22 07:14 Platelet Satelliting Not Reportable 01/17/22 07:14 Plt Morphology Comment Not Reportable 01/17/22 07:14 RBC Morphology Not Reportable 01/17/22 07:14 Dimorphic RBCs Not Reportable 01/17/22 07:14 Polychromasia Not Reportable 01/17/22 07:14 Hypochromasia 2+ 01/17/22 07:14 Poikilocytosis Not Reportable 01/17/22 07:14 Anisocytosis 3+ 01/17/22 07:14 Microcytosis Not Reportable 01/17/22 07:14 Macrocytosis Not Reportable 01/17/22 07:14 Spherocytes Not Reportable 01/17/22 07:14 Pappenheimer Bodies Not Reportable 01/17/22 07:14 Sickle Cells Not Reportable 01/17/22 07:14 Target Cells Not Reportable 01/17/22 07:14 Tear Drop Cells Not Reportable 01/17/22 07:14 Ovalocytes Not Reportable 01/17/22 07:14 Helmet Cells Not Reportable 01/17/22 07:14 [place] Bodies Not Reportable 01/17/22 07:14 [place] Rings Not Reportable 01/17/22 07:14 [place] Cells Not Reportable 01/17/22 07:14 Bite Cells Not Reportable 01/17/22 07:14 Crenated Cell Not Reportable 01/17/22 07:14 Elliptocytes Not Reportable 01/17/22 07:14 Acanthocytes (Spur) Not Reportable 01/17/22 07:14 Rouleaux Not Reportable 01/17/22 07:14 Hemoglobin C Crystals Not Reportable 01/17/22 07:14 Schistocytes Not Reportable 01/17/22 07:14 Malaria parasites Not Reportable 01/17/22 07:14 [place] Bodies Not Reportable 01/17/22 07:14 Hem Pathologist Commnt No 01/17/22 07:14 PT 16.8 Sec. (12.2-14.9) H 01/17/22 07:14 INR 1.22 (0.87-1.13) H 01/17/22 07:14 APTT 38.3 Sec. (24.2-36.6) H 01/16/22 09:11 ABG pH 7.366 pH Units (7.350-7.450) 01/13/22 15:55 ABG pCO2 32.7 mm Hg 01/13/22 15:55 ABG pO2 68.3 mm Hg (80.0-90.0) L 01/13/22 15:55 ABG HCO3 18.3 mmol/L (20.0-26.0) L 01/13/22 15:55 ABG O2 Saturation 93.6 % (95.0-99.0) L 01/13/22 15:55 ABG O2 Content 14.0 (0.0-44) 01/13/22 15:55 ABG Base Excess -6.2 mmol/L (-2.0-3.0) L 01/13/22 15:55 ABG Hemoglobin 10.8 gm/dl (12.0-16.0) L 01/13/22 15:55 ABG Carboxyhemoglobin 1.2 % (0.0-5.0) 01/13/22 15:55 ABG Methemoglobin 0.6 % (0.0-1.5) 01/13/22 15:55 Oxyhemoglobin 91.9 % (95.0-99.0) L 01/13/22 15:55 FiO2 21 % 01/13/22 15:55 Sodium 142 mmol/L (137-145) 01/19/22 06:48 Potassium 3.9 mmol/L (3.6-5.0) 01/19/22 06:48 Chloride 107.6 mmol/L (98-107) H 01/19/22 06:48 Carbon Dioxide 19 mmol/L (22-30) L 01/19/22 06:48 Anion Gap 19 mmol/L 01/19/22 06:48 BUN 23 mg/dL (7-17) H 01/19/22 06:48 Creatinine 2.7 mg/dL (0.6-1.2) H 01/19/22 06:48 Estimated GFR 23 ml/min 01/19/22 06:48 BUN/Creatinine Ratio 9 % 01/19/22 06:48 Glucose 103 mg/dL (65-100) H 01/19/22 06:48 Calcium 8.7 mg/dL (8.4-10.2) 01/19/22 06:48 Phosphorus 2.90 mg/dL (2.5-4.5) 01/16/22 09:11 Magnesium 1.70 mg/dL (1.7-2.3) 01/16/22 09:11 Total Bilirubin 0.40 mg/dL (0.1-1.2) 01/19/22 06:48 Direct Bilirubin 0.3 mg/dL (0-0.2) H 01/16/22 09:11 Indirect Bilirubin 0.6 mg/dL 01/14/22 01:06 AST 16 units/L (5-40) 01/19/22 06:48 ALT 461 units/L (7-56) H 01/19/22 06:48 Alkaline Phosphatase 88 units/L (35-129) 01/19/22 06:48 Total Creatine Kinase 28 units/L (30-135) L 01/14/22 05:00 Total Protein 6.8 g/dL (6.3-8.2) 01/19/22 06:48 Albumin 3.0 g/dL (3.9-5) L 01/19/22 06:48 Albumin/Globulin Ratio 0.8 % 01/19/22 06:48 Urine Color Yellow (Yellow) 01/13/22 23:10 Urine Turbidity Cloudy (Clear) 01/13/22 23:10 Urine pH 5.0 (5.0-7.0) 01/13/22 23:10 Ur Specific [place] 1.011 (1.003-1.030) 01/13/22 23:10 Urine Protein 100 mg/dl mg/dL (Negative) 01/13/22 23:10 Urine Glucose (UA) Neg mg/dL (Negative) 01/13/22 23:10 Urine Ketones Neg mg/dL (Negative) 01/13/22 23:10 Urine Blood Lg (Negative) 01/13/22 23:10 Urine Nitrite Neg (Negative) 01/13/22 23:10 Ur Reducing Substances Not Reportable 01/11/22 Unknown Urine Bilirubin Neg (Negative) 01/13/22 23:10 Urine Ictotest Not Reportable 01/11/22 Unknown Urine Urobilinogen < 2.0 mg/dL (<2.0) 01/13/22 23:10 Ur Leukocyte Esterase Neg (Negative) 01/13/22 23:10 Urine WBC (Auto) 16.0 /HPF (0.0-6.0) H 01/13/22 23:10 Urine RBC (Auto) 84.0 /HPF (0.0-6.0) 01/13/22 23:10 U Epithel Cells (Auto) 2.0 /HPF (0-13.0) 01/13/22 23:10 Urine Bacteria (Auto) 1+ /HPF (Negative) 01/13/22 23:10 Urine Mucus Few /HPF 01/13/22 23:10 Urine Yeast (Budding) 3+ /HPF 01/13/22 23:10 Urine Eosinophils Few (None Seen) 01/13/22 23:10 Urine Creatinine 107.8 mg/dL (0.1-20.0) H 01/13/22 23:10 Urine Sodium 54 mmol/L 01/13/22 23:10 Urine HCG, Qual Negative (Negative) 01/11/22 Unknown Salicylates < 0.3 mg/dL (2.8-20.0) L 01/11/22 12:48 Urine Opiates Screen Negative 01/11/22 Unknown Urine Methadone Screen Negative 01/11/22 Unknown Acetaminophen 5.0 ug/mL (10.0-30.0) L 01/14/22 01:06 Ur Barbiturates Screen Negative 01/11/22 Unknown Ur Phencyclidine Scrn Negative 01/11/22 Unknown Ur Amphetamines Screen Negative 01/11/22 Unknown U Benzodiazepines Scrn Negative 01/11/22 Unknown Urine Cocaine Screen Negative 01/11/22 Unknown U Marijuana (THC) Screen Negative 01/11/22 Unknown Drugs of Abuse Note Disclamer 01/11/22 Unknown Plasma/Serum Alcohol < 0.01 % (0-0.07) 01/11/22 12:48 Coronavirus (PCR) Negative (Negative) 01/12/22 08:25 [place]/IV: Voiding Method Toilet Active Medications - Current Medications Current Medications: Generic Name Dose Route Start Last Admin Trade Name Freq PRN Reason Stop Dose Admin Albuterol 2.5 mg 01/11/22 14:41 Albuterol 2.5 Mg/3 Ml Nebu IH Q3HRT PRN Shortness Of Breath Aripiprazole 10 mg 01/16/22 10:00 01/18/22 10:14 Aripiprazole 10 Mg Tab PO Not Given QDAY [facility] Hydralazine HCl 10 mg 01/17/22 17:00 01/17/22 17:37 Hydralazine 20 Mg/1 Ml Inj IV 10 mg Q4H PRN Administration Hypertension Labetalol HCl 10 mg 01/19/22 08:00 01/19/22 08:21 Labetalol 20 Mg/4 Ml Inj IV Not Given Q6H [facility] Mirtazapine 15 mg 01/12/22 22:00 01/18/22 21:15 Mirtazapine 15 Mg Tab PO Not Given QHS [facility] Morphine Sulfate 2 mg 01/11/22 14:41 01/14/22 20:32 Morphine 2 Mg/1 Ml Inj IV 2 mg Q12H PRN Administration Pain, Moderate (4-6) Multivitamins 1 each 01/13/22 10:00 01/18/22 10:14 Multivitamins ,Therapeutic Tab PO Not Given QDAY [facility] Nifedipine 30 mg 01/18/22 10:00 01/18/22 10:14 Nifedipine Xl 30 Mg Tab PO Not Given QDAY [facility] Ondansetron HCl 4 mg 01/11/22 22:21 01/14/22 20:32 Ondansetron 4 Mg/2 Ml Inj IV 4 mg Q8H PRN Administration Nausea And Vomiting Polyethylene Glycol 17 gm 01/17/22 17:47 01/17/22 18:36 Polyethylene Glycol 3350 17 Gm Powder PO 17 gm QDAY PRN Administration Constipation Sertraline HCl 50 mg 01/15/22 10:00 01/18/22 10:14 Sertraline 50 Mg Tab PO Not Given QDAY [facility] Sodium Chloride 10 ml 01/11/22 22:00 03/08/22 21:15 Sodium Chloride 0.9% 10 Ml Flush Syringe IV Not Given BID RIC Sodium Chloride 10 ml 01/11/22 14:41 Sodium Chloride 0.9% 10 Ml Flush Syringe IV PRN PRN LINE FLUSH Nutrition/Malnutrition Assess - Dietary Evaluation Nutrition/Malnutrition Findings: Nutrition Notes Start: 01/19/22 12:32 Freq: Status: Active Protocol: Document 01/19/22 12:33 SCOTT (Rec: 01/19/22 12:40 SCOTT [id number]) Nutrition Notes Need for Assessment generated from: LOS Initial or Follow up Assessment Current Diagnosis Acute Kidney Injury, Hypertension Other Pertinent Diagnosis s/p Drug Overdose, SIRS, Paranoid Schizophrenia. Current Diet Regular Diet (since L 01/18). Labs/Tests 01/19: Cl 107.6, CO2 19, BUN 23, Crea 2.7, Glu 103. Pertinent Medications 01/19: Multivitamin, others nutritionally unremarkable. Height 5 ft 7 in Weight 131.8 kg Muse Body Weight (kg) 61.36 BMI 45.5 Weight change and time frame None reported at admission. Weight Status Morbidly Obese Subjective/Other Information RD consult for LOS assessment. Pt's PO intake of meals has been Good (100%), according to ADL notes. Pt refuses to take her medications, according to RN notes. Percent of energy/protein needs met: Prescribed Regular Diet provides for energy/protein needs (2,289 Kcal/89 g) during LOS. Burn Absent Trauma Absent GI Symptoms None Food Allergy No Skin Integrity/Comment Assessment WNL. Current % PO Good (75-100%) Minimum of two criteria No #1 Nutrition Diagnosis No nutrition diagnosis at this time Is patient on ventilator? No Is Patient Ambulatory and/or Out of Bed Yes REE-([facility]-ambulatory/OOB) [ 2607.319 [id number]] Kcal/Kg value to use for calculation 13 Approximate Energy Requirements Using 1713 kcal/Kg Calculation Used for Recommendations Kcal/kg Additional Notes Protein: 0.8-1 g/Kg AdjBW; 77- 96 g/day. Fluids: 1 ml/Kcal, or as per MD. Nutrition Intervention Revisit per MD consult or patient Sign Off request: Additional Comments Continue monitoring food tolerance, %PO intake of meals , and BM.
[2022-01-19] MEDS: SERTRALINE 50 MG TAB PO SCH (20:21)
[2022-01-19] MEDS: MULTIVITAMINS ,THERAPEUTIC TAB PO SCH (20:21)
[2022-01-19] MEDS: ARIPiprazole 10 MG TAB PO SCH (20:21)
[2022-01-19] MEDS: NIFEdipine XL 30 MG TAB PO SCH (20:21)
[2022-01-19] MEDS: MIRTAZAPINE 15 MG TAB PO SCH (21:34)
--- NOTE | 2022-01-20 12:08 | Discharge Summary ---
Providers - Providers Date of Admission: 01/11/22 14:41 Date of discharge: 01/20/22 Attending physician: MATEO HATCH MD 01/11/22 12:33 Consult to Mental Health [CONS] Stat Reason For Exam: drug overdose; si 01/12/22 08:23 Consult to Physician [CONS] Routine Comment: Consulting Provider: PAVEL KUMARI Physician Instructions: Reason For Exam: TRANSMAINITIS 01/12/22 12:04 Consult to Physician [CONS] Routine Comment: Consulting Provider: JENNY ALMAZAN Physician Instructions: Reason For Exam: overdose 01/13/22 14:01 Consult to Physician [CONS] Urgent Comment: called office Consulting Provider: LINDA BE Physician Instructions: Reason For Exam: RAUL Primary care physician: [employer] Hospitalization Reason for admission: Suicide attempt by drug overdose, acetaminophen toxicity Condition: Stable Pertinent studies: Reviewed. Procedures: None. Hospital course: 41 YO Female with Obesity Hypoventilation Syndrome, HTN, MDD, Paranoid Schizophrenia, Prior Suicide Attempt with medication overdose presents to ED for evaluation. Patient exhibits tangential thinking and is unable to provide detailed history. Patient history taken from EMS staff, ED staff, as well as the patient's sister who accompanied the patient to the emergency department. Patient sister reports that the patient took approximately 40 tablets of Tylenol 500 mg over the past 1 day in an effort to relieve pain as well as an attempt to take her own life. Patient transported [facility] via private vehicle for further care and evaluation of the aforementioned symptoms. The patient was seen and evaluated in the emergency department. All lab and imaging studies reviewed. Patient found to have acute kidney injury, systemic plantar response syndrome, as well as suicide attempt complicated by psychotic break. [address] Mental health team consulted in ED. Poison control notified. Patient treated with Acetadote as per poison control protocol. Patient admitted to IM due to increased risk of worsening symptoms. Patient exhibits tangential thinking at time of evaluation but has a positive gag reflex and is able to protect her airway without difficulty. No reports of fever, chills, chest pain, palpitation or productive cough, skin rash, recent contact, or known exposure to COVID-19. Poison control was notified, and the patient was treated with Acetadote for acetaminophen intoxication. Gastroenterology was also consulted, and they agreed with current management as well as trending labs to monitor transaminases and INR. Nephrology was consulted for management of RAUL that eventually resolved with IV fluid resuscitation. Psychiatry was consulted, and they recommended starting Abilify 10 mg daily, Remeron 15 mg nightly, and Zoloft 50 mg daily. They also recommended acute psychiatric inpatient treatment. During the patient's hospitalization, she has refused medical management for her hypertension and the antipsychotics that were prescribed. Patient is medically clear for discharge. Disposition: [address] [place] [address] HOSPITAL Final Discharge Diagnosis (Prints w/discharge instructions): Suicide attempt by drug overdose, Tylenol toxicity, SIRS, RAUL secondary to vasomotor nephropathy, paranoid schizophrenia, hypertension, obesity, hyperbilirubinemia, secondary coagulopathy Time spent for discharge: 45 min Core Measure Documentation - Palliative Care Palliative Care/ Comfort Measures: Not Applicable - Core Measures Any of the following diagnoses?: none Exam - Constitutional Vitals: Temp Pulse Resp BP Pulse Ox 98.4 F 94 H 18 153/83 99 01/19/22 08:48 01/19/22 08:48 01/19/22 08:48 01/19/22 08:48 01/19/22 22:00 General appearance: Present: no acute distress, well-nourished, obese - EENT Eyes: Present: PERRL, EOM intact ENT: hearing intact, clear oral mucosa - Neck Neck: Present: supple, normal ROM - Respiratory Respiratory effort: normal Respiratory: bilateral: CTA - Cardiovascular Rhythm: regular Heart Sounds: Present: S1 & S2 - Extremities Extremities: no ischemia, pulses intact, pulses symmetrical, No edema, normal temperature, normal color, Full ROM Peripheral Pulses: within normal limits - Abdominal General gastrointestinal: Present: soft, non-tender, non-distended, normal bowel sounds Female genitourinary: Present: deferred - Rectal Rectal Exam: deferred - Integumentary Integumentary: Present: clear, warm, dry - Musculoskeletal Musculoskeletal: strength equal bilaterally - Psychiatric Psychiatric: depressed - Neurologic Neurologic: CNII-XII intact, moves all extremities - Allied Health Allied health notes reviewed: nursing Plan Activity: no restrictions Diet: low fat Additional Instructions: 41 YO Female with Obesity Hypoventilation Syndrome, HTN, MDD, Paranoid Schizophrenia, Prior Suicide Attempt with medication overdose presents to ED for evaluation. Patient exhibits tangential thinking and is unable to provide detailed history. Patient history taken from EMS staff, ED staff, as well as the patient's sister who accompanied the patient to the emergency department. Patient sister reports that the patient took approximately 40 tablets of Tylenol 500 mg over the past 1 day in an effort to relieve pain as well as an attempt to take her own life. Patient transported [facility] via private vehicle for further care and evaluation of the aforementioned symptoms. The patient was seen and evaluated in the emergency department. All lab and imaging studies reviewed. Patient found to have acute kidney injury, systemic plantar response syndrome, as well as suicide attempt complicated by psychotic break. [address] Mental health team consulted in ED. Poison control notified. Patient treated with Acetadote as per poison control protocol. Patient admitted to IMCU due to increased risk of worsening symptoms. Patient exhibits tangential thinking at time of evaluation but has a positive gag reflex and is able to protect her airway without difficulty. No reports of fever, chills, chest pain, palpitation or productive cough, skin rash, recent contact, or known exposure to COVID-19. Poison control was notified, and the patient was treated with Acetadote for acetaminophen intoxication. Gastroenterology was also consulted, and they agreed with current management as well as trending labs to monitor transaminases and INR. Nephrology was consulted for management of RAUL that eventually resolved with IV fluid resuscitation. Psychiatry was consulted, and they recommended starting Abilify 10 mg daily, Remeron 15 mg nightly, and Zoloft 50 mg daily. They also recommended acute psychiatric inpatient treatment. During the patient's hospitalization, she has refused medical management for her hypertension and the antipsychotics that were prescribed. Patient is medically clear for discharge. Care Plan Goals: Patient is medically cleared for discharge to inpatient psychiatric facility. Assessment: 41 YO Female with Obesity Hypoventilation Syndrome, HTN, MDD, Paranoid Schizophrenia, Prior Suicide Attempt with medication overdose presents to ED for evaluation. Patient exhibits tangential thinking and is unable to provide detailed history. Patient history taken from EMS staff, ED staff, as well as the patient's sister who accompanied the patient to the emergency department. Patient sister reports that the patient took approximately 40 tablets of Tylenol 500 mg over the past 1 day in an effort to relieve pain as well as an attempt to take her own life. Patient transported [facility] via private vehicle for further care and evaluation of the aforementioned symptoms. The patient was seen and evaluated in the emergency department. All lab and imaging studies reviewed. Patient found to have acute kidney injury, systemic plantar response syndrome, as well as suicide attempt complicated by psychotic break. [address] Mental health team consulted in ED. Poison control notified. Patient treated with Acetadote as per poison control protocol. Patient admitted to IMCU due to increased risk of worsening symptoms. Patient exhibits tangential thinking at time of evaluation but has a positive gag reflex and is able to protect her airway without difficulty. No reports of fever, chills, chest pain, palpitation or productive cough, skin rash, recent contact, or known exposure to COVID-19. Poison control was notified, and the patient was treated with Acetadote for acetaminophen intoxication. Gastroenterology was also consulted, and they agreed with current management as well as trending labs to monitor transaminases and INR. Nephrology was consulted for management of RAUL that eventually resolved with IV fluid resuscitation. Psychiatry was consulted, and they recommended starting Abilify 10 mg daily, Remeron 15 mg nightly, and Zoloft 50 mg daily. They also recommended acute psychiatric inpatient treatment. During the patient's hospitalization, she has refused medical management for her hypertension and the antipsychotics that were prescribed. Patient is medically clear for discharge. Follow up with: PRIMARY CAREMD [Primary Care Provider] - 7 Days
[2022-01-20] MEDS: ARIPiprazole 10 MG TAB PO SCH (19:12)
[2022-01-20] MEDS: NIFEdipine XL 30 MG TAB PO SCH (19:13)
[2022-01-20] MEDS: MULTIVITAMINS ,THERAPEUTIC TAB PO SCH (19:13)
[2022-01-20] MEDS: SERTRALINE 50 MG TAB PO SCH (19:13)
[2022-01-20] MEDS: MIRTAZAPINE 15 MG TAB PO SCH (21:34)
== END 2022-01-21 00:55 | DRG 917 ==
LOC: ED 12:08 → IMCU 14:41 → 3A 01-15 10:43
PROVIDERS: ADMIT Internal Medicine; ATTEND Student in an Organized Health Care Education/Training Program
PROC: 4A033R1 Measurement of Arterial Saturation, Peripheral, Percutaneous Approach (ICD-10-PCS; principal; 2022-01-13)
DX: T39.1X2A Poisoning by 4-Aminophenol derivatives, intentional self-harm, initial encounter (principal); N17.0 Acute kidney failure with tubular necrosis; F33.9 Major depressive disorder, recurrent, unspecified; R65.10 Systemic inflammatory response syndrome (SIRS) of non-infectious origin without acute organ dysfunction; F20.0 Paranoid schizophrenia; E66.2 Morbid (severe) obesity with alveolar hypoventilation; Z68.42 Body mass index [BMI] 45.0-49.9, adult; D68.8 Other specified coagulation defects; Y92.89 Other specified places as the place of occurrence of the external cause; Z20.822 Contact with and (suspected) exposure to COVID-19; R73.9 Hyperglycemia, unspecified; N18.9 Chronic kidney disease, unspecified; Z71.3 Dietary counseling and surveillance; Z83.3 Family history of diabetes mellitus; Z82.49 Family history of ischemic heart disease and other diseases of the circulatory system; I12.9 Hypertensive chronic kidney disease with stage 1 through stage 4 chronic kidney disease, or unspecified chronic kidney disease; Z88.0 Allergy status to penicillin; Z88.8 Allergy status to other drugs, medicaments and biological substances; Z88.6 Allergy status to analgesic agent
CPT/HCPCS: 36415; 36600; 76770; 80053; 80076; 80307; 80320; 81001; 81025; 82248; 82550; 82570; 82803; 83735; 84100; 84300; 84450; 84460; 85007; 85025; 85027; 85610; 85730; 87086; 89050; 93005; 93010; 94640; G0378; J3490; J7060; Q0162; G0480; J0132; J0360; J2270; J2405; J3430; J7030; J7070; U0003